=== PATIENT | male | born 1955 | race Caucasian/White ===

== ENCOUNTER 2018-10-04 11:40 | Inpatient (IN) ==
--- NOTE | 2018-10-04 12:54 | ED ---
HPI General Chief Complaint: Respiratory Symptoms Stated Complaint: SoB Time Seen by Provider: 10/04/18 12:20 History of Present Illness HPI Narrative: This is a 63-year-old male with a severe COPD, O2 dependent, who presents from the [place] with complaints of shortness of breath fever and cough. Patient has been treated with multiple rounds of antibiotics for bronchitis/ upper respiratory infection. Despite this, he has had recurrent fever 2 days ago. He was seen and evaluated at the [place] clinic and they max blood noted his white blood cell count to be 16,000. They stated they were concerned that he had pneumonia and sent him here for further evaluation and probable admission. The temperature was as high as 101.5. They have been taking Tylenol for the fever. Caregiver at the bedside states that despite this, he has had fevers. He was recently just started on doxycycline. He had been on Zithromax, Augmentin and Cipro. The patient normally uses O2 and receives between 8 and 10 L via nasal cannula. This is normal for him. Related Data Home Medications Medication Instructions Recorded Confirmed alfuzosin 10 mg PO DAILY 10/04/18 10/04/18 benztropine [Cogentin] 0.5 mg IM BID 10/04/18 10/04/18 budesonide-formoterol [Symbicort] 2 puff INHALATION BID 10/04/18 10/04/18 diltiazem HCl 240 mg PO DAILY 10/04/18 10/04/18 finasteride 5 mg PO DAILY 10/04/18 10/04/18 haloperidol 2 mg PO HS 10/04/18 10/04/18 ipratropium-albuterol [Combivent 1 puff INHALATION Q6H 10/04/18 10/04/18 Respimat] lorazepam [Ativan] 1 mg PO BID 10/04/18 10/04/18 metoprolol succinate 50 mg PO BID 10/04/18 10/04/18 tiotropium bromide [Spiriva 2 puff INHALATION DAILY 10/04/18 10/04/18 Respimat] Allergies Allergy/AdvReac Type Severity Reaction Status Date / Time ciprofloxacin [From Cipro] AdvReac Nausea Verified 10/04/18 12:27 Review of Systems ROS: all other systems reviewed are negative Constitutional Denies chills and Reports fever(s) Eyes Reports system reviewed and no additional complaints, except as docu ENT Reports system reviewed and no additional complaints, except as [facility] Cardiovascular Denies chest pain and Reports dyspnea Respiratory Reports chest congestion, Reports cough and Reports dyspnea Gastrointestinal Reports system reviewed and no additional complaints, except as [facility] Genitourinary Reports system reviewed and no additional complaints, except as [facility] Musculoskeletal Reports system reviewed and no additional complaints, except as [facility] Neurologic Reports system reviewed and no additional complaints, [facility] Medical History Medical History COPD (chronic obstructive pulmonary disease) (Acute) Hypertension (Acute) Inguinal hernia bilateral, non-recurrent (Acute) Prostate hypertrophy (Acute) Surgical History Surgical History History of transurethral resection of prostate (Acute) Social History Social History Substance History: No History of Abuse Second Hand Smoke Exposure: No Smoking Status: Former smoker How Often Do You Have a Drink Containing Alcohol: Monthly or less Recent Travel in [facility] within the Last 8 Weeks: No Recent Out of Country Travel within the Last 8 Weeks: No Immunization History Tetanus Immunization: >5 Years Exam Narrative Exam Narrative: GENERAL: Well-developed well-nourished male in obvious respiratory distress. Patient had a respiratory rate in the high 20s. SKIN: Focused skin assessment warm/dry. HEAD: Atraumatic. Normocephalic. EYES: Pupils equal and round. No scleral icterus. No injection or drainage. ENT: No nasal bleeding or discharge. Mucous membranes pink and moist. NECK: Trachea midline. Supple. CARDIOVASCULAR: Regular rate and rhythm. No murmur appreciated. RESPIRATORY: Fine rales appreciated at the left lung base. Decreased air movement bilaterally. GASTROINTESTINAL: Abdomen soft, non-tender, nondistended. Hepatic and splenic margins not palpable. MUSCULOSKELETAL: No obvious deformities. No clubbing. No cyanosis. No edema. NEUROLOGICAL: Awake and alert. No obvious cranial nerve deficits. Motor grossly within normal limits. Course Initial Documented Vital Signs Temperature 98.8 F 10/04/18 11:46 Pulse Rate 110 H 10/04/18 11:46 Respiratory Rate 28 H 10/04/18 11:46 Blood Pressure 144/86 H 10/04/18 11:46 Pulse Oximetry 93 L 10/04/18 11:46 Last Documented Vital Signs Temperature 98.8 F 10/04/18 11:46 Pulse Rate 100 H 10/04/18 14:57 Respiratory Rate 28 H 10/04/18 14:57 Blood Pressure 142/95 H 10/04/18 14:57 Pulse Oximetry 99 10/04/18 14:57 Medical Decision Making MDM Narrative Medical decision making narrative: This is a 63-year-old male with history of severe COPD, oxygen dependent, who presents today with complaints of fever, shortness of breath, cough and reported elevated blood count. Patient was seen at the [place] where he gets his care and was noted to have an elevated white blood cell count. They sent him here for further evaluation and admission. The patient has been on multiple doses of different antibiotics and despite that, he still spiking a fever. Chest x-ray shows a large left pleural effusion and a left middle lobe infiltrate. He is been started on Zosyn and Zithromax. He will be admitted to the hospital under the [facility] teaching service. Case was discussed with Dr. Haley, resident working with the teaching service under Dr. Gudino. Medical Screen Exam Complete: Yes Emergency Medical Condition: Yes Differential Diagnosis Differential Diagnosis: Pneumonia versus bronchitis versus COPD exacerbation Lab Data Result diagrams: 10/04/18 12:50 10/04/18 12:50 Lab Results 10/04/18 10/04/18 Range/Units 12:50 12:50 WBC 18.7 H (4.0-11.0) th/mm3 RBC 3.97 L (4.50-5.90) mil/mm3 Hgb 11.7 L (13.0-17.0) gm/dL Hct 35.4 L (39.0-51.0) % MCV 89.1 (80.0-100.0) fL MCH 29.6 (27.0-34.0) pg MCHC 33.2 (32.0-36.0) % RDW 14.2 (11.6-17.2) % Plt Count 545 H (150-450) th/mm3 MPV 7.0 (7.0-11.0) fL Prelim Diff (Auto) Slide review pending Neut % (Auto) 88.9 H (16.0-70.0) % Lymph % (Auto) 3.0 L (9.0-44.0) % [place] % (Auto) 7.8 (0.0-8.0) % Eos % (Auto) 0.1 (0.0-4.0) % Baso % (Auto) 0.2 (0.0-2.0) % Neut # (Auto) 16.6 H (1.8-7.7) th/mm3 Lymph # (Auto) 0.6 L (1.0-4.8) th/mm3 [place] # (Auto) 1.5 H (0.0-0.9) th/mm3 Eos # (Auto) 0.0 (0.0-0.4) th/mm3 Baso # (Auto) 0.0 (0.0-0.2) th/mm3 WBC Differential Manual diff final Seg Neuts % (Manual) 81 H (16-70) % Band Neuts % (Manual) 11 H (0-6) % Lymphocytes % (Manual) 1 L (9-44) % Monocytes % (Manual) 7 (0-8) % Abs Neuts (Manual) 17.2 H (1.8-7.7) th/mm3 Differential Comment . Platelet Estimate High H (Normal) Platelet Morphology Normal (Normal) RBC Morphology Normal (Normal) Sodium 127 L (136-145) meq/L Potassium 5.0 (3.5-5.1) meq/L Chloride 87 L (98-107) meq/L Carbon Dioxide 35.3 H (21.0-32.0) meq/L Anion Gap 5 (5-15) meq/L BUN 8 (7-18) mg/dL Creatinine 0.58 L (0.60-1.30) mg/dL Estimated GFR Greater than 89 (>89) mL/min Random Glucose 165 H (74-106) mg/dL Calcium 8.6 (8.5-10.1) mg/dL Total Bilirubin 0.2 (0.2-1.0) mg/dL AST 31 (15-37) U/L ALT 33 (12-78) U/L Alkaline Phosphatase 95 (45-117) U/L Total Creatine Kinase 49 (39-308) U/L Troponin I Less than 0.02 L (0.02-0.05) ng/mL Total Protein 8.2 (6.4-8.2) g/dL Albumin 2.2 L (3.4-5.0) g/dL Imaging Data Radiologist's impression: Chest X-Ray 10/04/18 12:21 CONCLUSION: Abnormal appearance left hemithorax with large left pleural effusion extending to the apex and segmental infiltrates in left mid lung. Discharge Plan Discharge Disposition Patient Disposition: ED Admit(ED Internal Use Only) Discharge Order Discharge Orders: ED Use Only Admit Order (Routine); Ordered 10/04/18 Ordered By: Jose Weber Discharge Details Diagnosis: Pneumonia, Pleural effusion on left, COPD (chronic obstructive pulmonary disease) Physicians Team ED Provider: Jose Weber Primary Care Provider: UNKNOWN, Attending Provider: Quynh Gudino Discharge Interventions Interventions: Vital Signs Last Done: 10/04/18 14:57 Status ED Status: Ready for Discharge
[2018-10-04 13:14] LABS: Baso % (Auto) 0.2 % (0.0-2.0); Eos % (Auto) 0.1 % (0.0-4.0); Hematocrit 35.4 % (39.0-51.0); Hemoglobin 11.7 gm/dL (13.0-17.0); Lymph # (Auto) 0.6 th/mm3 (1.0-4.8); Mean Corpuscular HGB Conc 33.2 % (32.0-36.0); Mean Corpuscular Hemoglobin 29.6 pg (27.0-34.0); Mean Corpuscular Volume 89.1 fL (80.0-100.0); Mono # (Auto) 1.5 th/mm3 (0.0-0.9); Mono % (Auto) 7.8 % (0.0-8.0); Neut # (Auto) 16.6 th/mm3 (1.8-7.7); Neut % (Auto) 88.9 % (16.0-70.0); Platelet Count 545 th/mm3 (150-450); Red Blood Count 3.97 mil/mm3 (4.50-5.90); Red Cell Distribution Width 14.2 % (11.6-17.2); White Blood Count 18.7 th/mm3 (4.0-11.0)
--- NOTE | 2018-10-04 13:16 | XR ---
EXAM DATE: 10/04/2018 1:07 PM EST AGE/SEX: 63 years / Male INDICATIONS: Shortness of breath. CLINICAL DATA: This is the patient's initial encounter. Patient reports that signs and symptoms have been present for 2 days and indicates a pain score of 0/10. MEDICAL/SURGICAL HISTORY: Chronic obstructive pulmonary disease. Hypertension. Inguinal hernia repair. COMPARISON: No prior exams available for comparison. FINDINGS: There is a large density in the lateral left thorax extending from base to apex suggestive of a large pleural effusion. The pleural effusion appears to extend to the apex with separation of visceral par ietal pleura measuring up to 3 cm. There is also partially consolidative infiltrate left mid and lowe r lung. There is complete loss of delineation of the lateral left hemidiaphragm. The left upper lung is hyper aerated. The right lung is clear with hyperaeration of the apex. The heart is normal in size . CONCLUSION: Abnormal appearance left hemithorax with large left pleural effusion extending to the apex and segmen enrique infiltrates in left mid lung. Electronically signed by: Troy Anand MD Board Certified Radiologist 10/04/2018 1:15 PM EST
[2018-10-04 13:48] LABS: Lymphocytes 1 % (9-44); Monocytes 7 % (0-8); Platelet Morphology Normal (Normal); RBC Morphology Normal (Normal)
[2018-10-04 13:49] LABS: Alanine Aminotransferase 33 U/L (12-78); Albumin 2.2 g/dL (3.4-5.0); Alkaline Phosphatase 95 U/L (45-117); Anion Gap 5 meq/L (5-15); Aspartate Aminotransferase 31 U/L (15-37); Blood Urea Nitrogen 8 mg/dL (7-18); Calcium 8.6 mg/dL (8.5-10.1); Carbon Dioxide 35.3 meq/L (21.0-32.0); Chloride 87 meq/L (98-107); Glomerular Filtration Rate Greater Than 89 mL/min (>89); Glucose,Random 165 mg/dL (74-106); Sodium 127 meq/L (136-145); Total Protein 8.2 g/dL (6.4-8.2)
[2018-10-04 13:54] LABS: Creatine Kinase 49 U/L (39-308)
--- NOTE | 2018-10-04 14:25 | P.HPFP ---
History of Present Illness Primary Care Physician: UNKNOWN <Quynh Gudino - 10/04/18 22:05> UNKNOWN <Sudha Christiano Wei Viridiana - 10/04/18 14:24> History of Present Illness: This patient is a 63 yoM with a history of COPD and schizophrenia who is accompanied by his care givers, Gladys Morsede and Lázaro Andrew who are friends of the family for a one month history of increased oxygen demand and cough. Care givers report that 1 month ago he sat next to someone in yazidism who had PNA. Patient previously on 8L at home. Sing then patient has required 10L to sat at 93-98%. Since then he has increase in coughing, sputum production and color of sputum has been between green and orange. Today patient went to the [facility] for blood work and was found to have elevated white count and was told to come to the ED. Care givers report a fever of 101.7 that began on Sunday. They also noticed an associated red patches over left eye. They deny any nausea, vomiting, or shortness of breath.They report no sick contacts. No recent travel out of state or country. Pneumococcal vaccine status unknown. PMHx: COPD, Schizophrenia, HTN Meds: Reviewed with patient and care givers who report EMR list is correct as far as they know Surgeries: Bilateral inguinal hernia repair, TURP Allergies: Cipro causes nausea and vomiting FMHx: Mother passed of cancer at unknown age but was elderly Social: Lives with his sister who is a irrigation tax assessor collector and his primary patient care nursing assistant. Patient was in the [employer] for years. Smoked several packs for several years ( details not known) quit 7 years ago. No alcohol or drug abuse. Code: Full PCP: Dr. Aguayo, [facility] pulm: Unknown name Psych: [facility] Dr. Cristobal <Christiano Roman - 10/04/18 17:16> - Diagnosis (1) COPD (chronic obstructive pulmonary disease) (2) Schizophrenia (3) Pneumonia (4) Pleural effusion on left (5) HTN (hypertension) (6) BPH (benign prostatic hyperplasia) (7) Nutrition, metabolism, and development symptoms <Quynh Gudino - 10/04/18 22:05> (1) COPD (chronic obstructive pulmonary disease) (2) Schizophrenia (3) Pneumonia (4) Pleural effusion on left (5) HTN (hypertension) (6) BPH (benign prostatic hyperplasia) (7) Nutrition, metabolism, and development symptoms <Christiano Roman 10/04/18 16:24> Inpatient Certification: I certify that the inpatient services were ordered in accordance with Medicare regulations governing the order. This includes certification that hospital inpatient services are reasonable and necessary and in the case of services not specified as inpatient-only under 42 CFR 419.22(n), that they are appropriately provided as inpatient services in accordance to with the 2-midnight benchmark under 43 CFR 412.3(e) <Quynh Gudino 10/04/18 22:05> Review of Systems Constitutional: Denies chills, Denies fever(s), Denies headache(s), Denies dizziness, Eyes: Denies change in vision, Denies double vision, Denies blurry vision Cardiovascular: Denies chest pain, Denies fast heart rate, Denies rapid, pounding, or irregular heartbeat Respiratory: Endorses a 1 month history of shortness of breath with increased cough, sputum production, and purulence Gastrointestinal: Denies abdominal pain, Denies constipation, Denies loose stools, Denies nausea, Denies vomiting Genitourinary: Denies difficulty urinating, Denies painful urination, Denies urinary frequency, Denies blood in urine <Christiano Roman 10/04/18 17:16> PMF - History History Provided By: Patient <Christiano Roman 10/04/18 14:24> - Medical History Medical History: Medical History (Last Updated 10/04/18 @ 12:32 by Margarita Larsen) COPD (chronic obstructive pulmonary disease) Hypertension Inguinal hernia bilateral, non-recurrent Prostate hypertrophy <Quynh Gudino 10/04/18 22:05> Medical History (Last Updated 10/04/18 @ 12:32 by Margarita Larsen) COPD (chronic obstructive pulmonary disease) Hypertension Inguinal hernia bilateral, non-recurrent Prostate hypertrophy <Christiano Roman 10/04/18 14:24> - Surgical History Surgical History: Surgical History (Last Updated 10/04/18 @ 12:32 by Margarita Larsen) History of transurethral resection of prostate <TereseQuynh 10/04/18 22:05> Surgical History (Last Updated 10/04/18 @ 12:32 by Margarita Larsen) History of transurethral resection of prostate <Christiano Roman - 10/04/18 14:24> - Tobacco History Second Hand Smoke Exposure: No <Christiano Roman 10/04/18 14:24> Smoking Status: Former smoker <Christiano Roman 10/04/18 14:24> - Alcohol History How Often Do You Have a Drink Containing Alcohol: Monthly or less <Christiano Roman 10/04/18 14:24> - Substance Use History Substance History: No History of Abuse <Christiano Roman 10/04/18 14:24> - Travel History Recent Travel in the [facility] Within the Last 8 Weeks: No <Christiano Roman 10/04 14:24> Recent Travel Out of the Country Within the Last 8 Weeks: No <Christiano Roman 10/04/18 14:24> - Immunization History Tetanus Immunization: >5 Years <Christiano Roman 10/04/18 14:24> Medications and Allergies Allergies Allergy/AdvReac Type Severity Reaction Status Date / Time ciprofloxacin [From Cipro] AdvReac Nausea Verified 10/04/18 12:27 <Quynh Gudino - 10/04/18 22:05> Home Medications Medication Instructions Recorded Confirmed Type alfuzosin 10 mg PO DAILY 10/04/18 10/04/18 History benztropine [Cogentin] 0.5 mg IM BID 10/04/18 10/04/18 History budesonide-formoterol [Symbicort] 2 puff INHALATION BID 10/04/18 10/04/18 History diltiazem HCl 240 mg PO DAILY 10/04/18 10/04/18 History finasteride 5 mg PO DAILY 10/04/18 10/04/18 History haloperidol 2 mg PO HS 10/04/18 10/04/18 History ipratropium-albuterol [Combivent 1 puff INHALATION Q6H 10/04/18 10/04/18 History Respimat] lorazepam [Ativan] 1 mg PO BID 10/04/18 10/04/18 History metoprolol succinate 50 mg PO BID 10/04/18 10/04/18 History tiotropium bromide [Spiriva 2 puff INHALATION DAILY 10/04/18 10/04/18 History Respimat] <Quynh Gudino - 10/04/18 22:05> Active Medications: Active Medications Acetaminophen (Tylenol) 650 mg PO Q4H PRN PRN Reason: Temp > 100.4 Al Hydroxide/Mg Hydroxide (Milk Of Magnesia Liq) 30 ml PO Q12H PRN PRN Reason: Mild Constipation Albuterol (Duoneb Neb ([facility])) 1 ampul NEB Q4HR NEB [facility] Last Admin: 10/04/18 20:06 Dose: 1 ampul Albuterol (Albuterol Neb ([facility])) 2.5 mg NEB Q2HR NEB [facility] Last Admin: 10/04/18 20:06 Dose: 2.5 mg Benztropine Mesylate (Cogentin Inj) 0.5 mg IM BID [facility] Bisacodyl (Dulcolax Supp) 10 mg RECTAL DAILY PRN PRN Reason: SEVERE CONSITIPATION Diltiazem HCl (Cardizem Cd 24hr) 240 mg PO DAILY [facility] Finasteride (Proscar) 5 mg PO DAILY [facility] Guaifenesin (Mucinex Er) 600 mg PO BID PRN PRN Reason: NASAL CONGESTION Haloperidol (Haldol) 2 mg PO HS [facility] Heparin Sodium (Porcine) (Heparin Inj) 5,000 units SQ Q8H [facility] Last Admin: 10/04/18 22:00 Dose: 5,000 units Piperacillin/Tazobactam/Dextrose (Zosyn 4.5 Gm Premix) 4.5 gm in 100 mls @ 200 mls/hr IV.SIG Q6H [facility] Sodium Chloride (Ns Inj) 1,000 mls @ 125 mls/hr IV.CONT .Q8H [facility] Last Admin: 10/04/18 17:45 Dose: 125 mls/hr Lactulose (Lactulose Liq) 30 ml PO DAILY PRN PRN Reason: SEVERE CONSITIPATION Lorazepam (Ativan) 1 mg PO BID [facility] Last Admin: 10/04/18 21:50 Dose: 1 mg Methylprednisolone Sodium Succinate (Solumedrol Inj) 60 mg IV.PUSH Q6H [facility] Last Admin: 10/04/18 21:51 Dose: 60 mg Metoprolol Succinate (Toprol Xl) 50 mg PO BID [facility] Last Admin: 10/04/18 21:50 Dose: 50 mg Ondansetron HCl (Zofran Inj) 4 mg IV.PUSH Q6H PRN PRN Reason: NAUSEA OR VOMITING Pantoprazole Sodium (Protonix) 40 mg PO DAILY [facility] Sennosides (Senokot) 17.2 mg PO Q12H PRN PRN Reason: Moderate Constipation Sodium Chloride (Ns Flush) 2 ml IV.FLUSH BID [facility] Last Admin: 10/04/18 21:51 Dose: 2 ml Sodium Chloride (Ns Flush) 2 ml IV.FLUSH PRN PRN PRN Reason: FLUSH AFTER USING IV ACCESS Tamsulosin HCl (Flomax) 0.4 mg PO DAILY [facility] <Quynh Gudino - 10/04/18 22:05> Exam Vital signs: Vital Signs 10/04/18 11:46 10/04/18 12:26 10/04/18 12:43 Temperature 98.8 F Pulse Rate 110 H 104 H 104 H Respiratory Rate 28 H 30 H Blood Pressure 144/86 H 171/85 H Pulse Oximetry 93 L 96 98 10/04/18 14:57 10/04/18 16:12 10/04/18 16:40 Temperature 98.1 F Pulse Rate 100 H 116 H 104 H Respiratory Rate 28 H 28 H 22 Blood Pressure 142/95 H 167/95 H Pulse Oximetry 99 98 10/04/18 17:39 10/04/18 18:45 10/04/18 20:07 Temperature Pulse Rate 112 H 102 H 112 H Respiratory Rate 26 H 26 H 22 Blood Pressure 119/58 L 121/60 Pulse Oximetry 98 99 98 Intake & Output 10/04/18 10/04/18 10/05/18 06:59 18:59 06:59 Intake Total 1350 / 1350 Output Total 640 / 640 Balance 710 / 710 Weight 92.533 kg Intake: IV 1350 / 1350 Azithromycin Inj 500 MG In NS 250 / 250 Inj 250 ML @ 250 mls/hr IV.SIG STAT STA Rx#:[id number] Zosyn 4.5 GM Premix 4.5 gm In 100 / 100 100 ml @ 200 mls/hr IV.SIG STAT STA Rx#:[id number] NS Inj 1,000 ML @ Wide Open IV. 1000 / 1000 SIG BOLUS ONE Rx#:[id number] Output: Urine 340 / 340 Stool 300 / 300 Other: # Voids 1 Date of Last Bowel Movement 10/04/18 # Bowel Movements 1 <TereseQuynh - 10/04/18 22:05> Vital Signs 10/04/18 11:46 10/04/18 12:26 10/04/18 12:43 Temperature 98.8 F Pulse Rate 110 H 104 H 104 H Respiratory Rate 28 H 30 H Blood Pressure 144/86 H 171/85 H Pulse Oximetry 93 L 96 98 Intake & Output 10/03/18 10/04/18 10/04/18 18:59 06:59 18:59 Weight 92.533 kg <Christiano Roman - 10/04/18 14:24> Narrative: GENERAL: Elderly appearing gentleman laying on his side urinating into portable urinal. On facemask 15 L nasal cannula. In no acute distress. EYES: No scleral icterus. No injection or drainage. PERRLA. EOMI. HENT: Normocephalic. Atraumatic. NECK: Supple, trachea midline. No JVD, shotty bilateral submandibular lymphadenopathy CARDIOVASCULAR: Regular rate and rhythm without obvious murmurs, gallops, or rubs. RESPIRATORY: Breath sounds decreased in mid and lower left lobe. Egophony noted in left lower lobe. Dullness to percussion noted in left lower lobe. Right lung davidson grossly clear to auscultation. GASTROINTESTINAL: Abdomen soft, non-tender, nondistended. BS WNL. MUSCULOSKELETAL: No cyanosis or edema. Strength grossly WNL. BACK: Nontender without obvious deformity. No CVA tenderness. NEURO/PSYCH: Patient confused. Unable to answer questions appropriately. Appears to have fluctuating concentration and appropriateness of answers. [place] nerves II through XII grossly intact with no facial drooping. Moving all extremities. <Christiano Roman - 10/04/18 17:16> Results - Labs Result diagrams: 10/04/18 12:50 10/04/18 12:50 <Quynh Gudino - 10/04/18 22:05> Abnormal lab results 10/04/18 10/04/18 10/04/18 Range/Units 12:50 12:50 12:50 WBC 18.7 H (4.0-11.0) th/mm3 RBC 3.97 L (4.50-5.90) mil/mm3 Hgb 11.7 L (13.0-17.0) gm/dL Hct 35.4 L (39.0-51.0) % Plt Count 545 H (150-450) th/mm3 Neut % (Auto) 88.9 H (16.0-70.0) % Lymph % (Auto) 3.0 L (9.0-44.0) % Neut # (Auto) 16.6 H (1.8-7.7) th/mm3 Lymph # (Auto) 0.6 L (1.0-4.8) th/mm3 [place] # (Auto) 1.5 H (0.0-0.9) th/mm3 Seg Neuts % (Manual) 81 H (16-70) % Band Neuts % (Manual) 11 H (0-6) % Lymphocytes % (Manual) 1 L (9-44) % Abs Neuts (Manual) 17.2 H (1.8-7.7) th/mm3 Platelet Estimate High H (Normal) ABG pCO2 (38-42) mmHg ABG HCO3 (22-26) mmol/L ABG Base Excess (-2-2) mmol/L Hemoglobin (12.0-16.0) G/DL Sodium 127 L (136-145) meq/L Chloride 87 L (98-107) meq/L Carbon Dioxide 35.3 H (21.0-32.0) meq/L Creatinine 0.58 L (0.60-1.30) mg/dL Random Glucose 165 H (74-106) mg/dL Troponin I Less than 0.02 L (0.02-0.05) ng/mL Albumin 2.2 L (3.4-5.0) g/dL Procalcitonin (0.00-0.07) ng/mL Urine Clarity Hazy H (Clear) Urine Protein 30 H (Neg-Trace) mg/dL Urine Ketones Trace H (Negative) mg/dL Urine Mucus Few H (Occasional) /lpf 10/04/18 10/04/18 Range/Units 18:38 20:35 WBC (4.0-11.0) th/mm3 RBC (4.50-5.90) mil/mm3 Hgb (13.0-17.0) gm/dL Hct (39.0-51.0) % Plt Count (150-450) th/mm3 Neut % (Auto) (16.0-70.0) % Lymph % (Auto) (9.0-44.0) % Neut # (Auto) (1.8-7.7) th/mm3 Lymph # (Auto) (1.0-4.8) th/mm3 [place] # (Auto) (0.0-0.9) th/mm3 Seg Neuts % (Manual) (16-70) % Band Neuts % (Manual) (0-6) % Lymphocytes % (Manual) (9-44) % Abs Neuts (Manual) (1.8-7.7) th/mm3 Platelet Estimate (Normal) ABG pCO2 54 H* (38-42) mmHg ABG HCO3 33 H (22-26) mmol/L ABG Base Excess 7.6 H (-2-2) mmol/L Hemoglobin 10.3 L (12.0-16.0) G/DL Sodium (136-145) meq/L Chloride (98-107) meq/L Carbon Dioxide (21.0-32.0) meq/L Creatinine (0.60-1.30) mg/dL Random Glucose (74-106) mg/dL Troponin I (0.02-0.05) ng/mL Albumin (3.4-5.0) g/dL Procalcitonin 0.22 H (0.00-0.07) ng/mL Urine Clarity (Clear) Urine Protein (Neg-Trace) mg/dL Urine Ketones (Negative) mg/dL Urine Mucus (Occasional) /lpf Short CBC 10/04/18 Range/Units 12:50 WBC 18.7 H (4.0-11.0) th/mm3 Hgb 11.7 L (13.0-17.0) gm/dL Hct 35.4 L (39.0-51.0) % Plt Count 545 H (150-450) th/mm3 BMP 10/04/18 12:50 Sodium 127 L Potassium 5.0 Chloride 87 L Carbon Dioxide 35.3 H BUN 8 Creatinine 0.58 L Calcium 8.6 Cardiac Enzymes 10/04/18 Range/Units 12:50 Total Creatine Kinase 49 (39-308) U/L Troponin I Less than 0.02 L (0.02-0.05) ng/mL Liver Function 10/04/18 Range/Units 12:50 Total Bilirubin 0.2 (0.2-1.0) mg/dL AST 31 (15-37) U/L ALT 33 (12-78) U/L Alkaline Phosphatase 95 (45-117) U/L Albumin 2.2 L (3.4-5.0) g/dL Urine 10/04/18 Range/Units 12:50 Urine Color Yellow (Yellw/Straw) Urine Clarity Hazy H (Clear) Urine pH 6.0 (5.0-8.5) Ur Specific [place] 1.018 (1.002-1.035) Urine Protein 30 H (Neg-Trace) mg/dL Urine Glucose (UA) Negative (Negative) mg/dL <TereseQuynh - 10/04/18 22:05> Abnormal lab results 10/04/18 10/04/18 Range/Units 12:50 12:50 WBC 18.7 H (4.0-11.0) th/mm3 RBC 3.97 L (4.50-5.90) mil/mm3 Hgb 11.7 L (13.0-17.0) gm/dL Hct 35.4 L (39.0-51.0) % Plt Count 545 H (150-450) th/mm3 Neut % (Auto) 88.9 H (16.0-70.0) % Lymph % (Auto) 3.0 L (9.0-44.0) % Neut # (Auto) 16.6 H (1.8-7.7) th/mm3 Lymph # (Auto) 0.6 L (1.0-4.8) th/mm3 [place] # (Auto) 1.5 H (0.0-0.9) th/mm3 Seg Neuts % (Manual) 81 H (16-70) % Band Neuts % (Manual) 11 H (0-6) % Lymphocytes % (Manual) 1 L (9-44) % Abs Neuts (Manual) 17.2 H (1.8-7.7) th/mm3 Platelet Estimate High H (Normal) Sodium 127 L (136-145) meq/L Chloride 87 L (98-107) meq/L Carbon Dioxide 35.3 H (21.0-32.0) meq/L Creatinine 0.58 L (0.60-1.30) mg/dL Random Glucose 165 H (74-106) mg/dL Troponin I Less than 0.02 L (0.02-0.05) ng/mL Albumin 2.2 L (3.4-5.0) g/dL Short CBC 10/04/18 Range/Units 12:50 WBC 18.7 H (4.0-11.0) th/mm3 Hgb 11.7 L (13.0-17.0) gm/dL Hct 35.4 L (39.0-51.0) % Plt Count 545 H (150-450) th/mm3 BMP 10/04/18 12:50 Sodium 127 L Potassium 5.0 Chloride 87 L Carbon Dioxide 35.3 H BUN 8 Creatinine 0.58 L Calcium 8.6 Cardiac Enzymes 10/04/18 Range/Units 12:50 Total Creatine Kinase 49 (39-308) U/L Troponin I Less than 0.02 L (0.02-0.05) ng/mL Liver Function 10/04/18 Range/Units 12:50 Total Bilirubin 0.2 (0.2-1.0) mg/dL AST 31 (15-37) U/L ALT 33 (12-78) U/L Alkaline Phosphatase 95 (45-117) U/L Albumin 2.2 L (3.4-5.0) g/dL <Christiano Roman - 10/04/18 14:24> - Imaging Impressions Chest CT 10/04/18 00:00 CONCLUSION: 1. Extensive COPD with huge blebs and very low lung parenchymal remaining. 2. Loculated left pleural effusion with adjacent parenchymal process may be chronically consolidated lung, however focal mass particularly left lower lobe is difficult to exclude. 3. Nonspecific right lower lung nodule. 4. Right adrenal mass most likely an adenoma, however it is nonspecific. Chest X-Ray 10/04/18 12:21 CONCLUSION: Abnormal appearance left hemithorax with large left pleural effusion extending to the apex and segmental infiltrates in left mid lung. <Quynh Gudino - 10/04/18 22:05> Impressions Chest X-Ray 10/04/18 12:21 CONCLUSION: Abnormal appearance left hemithorax with large left pleural effusion extending to the apex and segmental infiltrates in left mid lung. <Christiano Roman 10/04/18 14:24> Caprini VTE Risk Assessment Caprini VTE Risk Assessment: Moderate/High Risk (score >= 2) <Christiano Roman 10/04/18 17:16> Caprini Risk Assessment Model: Point Value = 1 Point Value = 2 Point Value = 3 Point Value = 5 Age 41-60 Minor surgery BMI > 25 kg/m2 Swollen legs Varicose veins or History of unexplained or recurrent spontaneous Oral contraceptives or hormone replacement Sepsis (< 1 month) Serious lung disease, including pneumonia (< 1 month) Abnormal pulmonary function Acute myocardial infarction Congestive heart failure (< 1 month) History of inflammatory bowel disease Medical patient at bed rest Age 61-74 Arthroscopic surgery Major open surgery (> 45 min) Laparoscopic surgery (> 45 min) Malignancy Confined to bed (> 72 hours) Immobilizing plaster cast Central venous access Age >= 75 History of VTE Family history of VTE Factor V Leiden Prothrombin [id number] Lupus anticoagulant Anticardiolipin antibodies Elevated serum homocysteine Heparin-induced thrombocytopenia Other congenital or acquired thrombophilia Stroke (< 1 month) Elective arthroplasty Hip, pelvis, or leg fracture Acute spinal cord injury (< 1 month) <Quynh Gudino 10/04/18 22:05> Point Value = 1 Point Value = 2 Point Value = 3 Point Value = 5 Age 41-60 Minor surgery BMI > 25 kg/m2 Swollen legs Varicose veins or History of unexplained or recurrent spontaneous Oral contraceptives or hormone replacement Sepsis (< 1 month) Serious lung disease, including pneumonia (< 1 month) Abnormal pulmonary function Acute myocardial infarction Congestive heart failure (< 1 month) History of inflammatory bowel disease Medical patient at bed rest Age 61-74 Arthroscopic surgery Major open surgery (> 45 min) Laparoscopic surgery (> 45 min) Malignancy Confined to bed (> 72 hours) Immobilizing plaster cast Central venous access Age >= 75 History of VTE Family history of VTE Factor V Leiden Prothrombin [id number] Lupus anticoagulant Anticardiolipin antibodies Elevated serum homocysteine Heparin-induced thrombocytopenia Other congenital or acquired thrombophilia Stroke (< 1 month) Elective arthroplasty Hip, pelvis, or leg fracture Acute spinal cord injury (< 1 month) <Christiano Roman 10/04/18 14:24> Prophylaxis Regimen: Total Risk Factor Score Risk Level Prophylaxis Regimen 0-1 Low Early ambulation 2 Moderate Order ONE of the following: *Sequential Compression Device (SCD) *Heparin 5000 units SQ BID 3-4 Higher Order ONE of the following medications: *Heparin 5000 units SQ TID *Enoxaparin/Lovenox 40 mg SQ daily (WT < 150 kg, CrCl > 30 mL/min) *Enoxaparin/Lovenox 30 mg SQ daily (WT < 150 kg, CrCl > 10-29 mL/min) *Enoxaparin/Lovenox 30 mg SQ BID (WT < 150 kg, CrCl > 30 mL/min) AND/OR *Sequential Compression Device (SCD) 5 or more Highest Order ONE of the following medications: *Heparin 5000 units SQ TID (Preferred with Epidurals) *Enoxaparin/Lovenox 40 mg SQ daily (WT < 150 kg, CrCl > 30 mL/min) *Enoxaparin/Lovenox 30 mg SQ daily (WT < 150 kg, CrCl > 10-29 mL/min) *Enoxaparin/Lovenox 30 mg SQ BID (WT < 150 kg, CrCl > 30 mL/min) AND *Sequential Compression Device (SCD) <Quynh Gudino - 10/04/18 22:05> Total Risk Factor Score Risk Level Prophylaxis Regimen 0-1 Low Early ambulation 2 Moderate Order ONE of the following: *Sequential Compression Device (SCD) *Heparin 5000 units SQ BID 3-4 Higher Order ONE of the following medications: *Heparin 5000 units SQ TID *Enoxaparin/Lovenox 40 mg SQ daily (WT < 150 kg, CrCl > 30 mL/min) *Enoxaparin/Lovenox 30 mg SQ daily (WT < 150 kg, CrCl > 10-29 mL/min) *Enoxaparin/Lovenox 30 mg SQ BID (WT < 150 kg, CrCl > 30 mL/min) AND/OR *Sequential Compression Device (SCD) 5 or more Highest Order ONE of the following medications: *Heparin 5000 units SQ TID (Preferred with Epidurals) *Enoxaparin/Lovenox 40 mg SQ daily (WT < 150 kg, CrCl > 30 mL/min) *Enoxaparin/Lovenox 30 mg SQ daily (WT < 150 kg, CrCl > 10-29 mL/min) *Enoxaparin/Lovenox 30 mg SQ BID (WT < 150 kg, CrCl > 30 mL/min) AND *Sequential Compression Device (SCD) <Christiano Roman O - 10/04/18 14:24> Assessment and Plan - Assessment (1) COPD (chronic obstructive pulmonary disease) Code(s): J44.9 - Chronic obstructive pulmonary disease, unspecified Status: Acute (2) Schizophrenia Code(s): F20.9 - Schizophrenia, unspecified Status: Acute (3) Pneumonia Code(s): J18.9 - Pneumonia, unspecified organism Status: Acute (4) Pleural effusion on left Code(s): J90 - Pleural effusion, not elsewhere classified Status: Acute (5) HTN (hypertension) Code(s): I10 - Essential (primary) hypertension Status: Acute (6) BPH (benign prostatic hyperplasia) Code(s): N40.0 - Benign prostatic hyperplasia without lower urinary tract symptoms Status: Acute (7) Nutrition, metabolism, and development symptoms Code(s): R63.8 - Other symptoms and signs concerning food and fluid intake Status: Acute <Quynh Gudino - 10/04/18 22:05> (1) COPD (chronic obstructive pulmonary disease) Code(s): J44.9 - Chronic obstructive pulmonary disease, unspecified Status: Acute Plan: This a 63 yoM with a history of COPD and schizophrenia who is accompanied by his care givers, Gladys Cassidy and Lázaro Andrew who are friends of the family for a one month history of increased oxygen demand and cough. Patient found to have left lower lobe consolidation as well as left lower lobe pleural effusion. Patient received 4.5 g of Zosyn as well as 500 mg of azithromycin in the ED. Patient meets sepsis criteria. Bolus patient liter of normal saline now. -DDx includes COPD exacerbation, pneumonia, pleural effusion secondary to malignancy. -Pt. has a pulmonary hx sig. for smoking and multiple URIs in the past. Number COPD exacerbations unknown. -Patient normally on 6 L home O2 now requiring 10 L. -WBC 18.7, neutrophil percent 88.9 supporting infectious etiology. -EKG unremarkable with exception of sinus tachycardia with possible left ventricular hypertrophy. -BNP WNLs. -CXR showed hyperinflation, mild flattening of diaphragm and elevated clavicles c/w COPD. Plan: -Gold COPD criteria cannot be calculated as patient's exacerbation history nor FEV1 percentage of predicted is currently known -Treat with Supplemental O2 via nonrebreather to maintain sats between 88 and 92 %. Encourage pt. to get OOB and ambulate. -Normal saline at 125 mL/h -Duonebs q4 hrs. jeff -Albuterol 2.5 mg nebulized Q2 hrs schedule -Solu-Medrol 60 mg IV every 6 -Protonix 40 mg PO daily for GI protection and decr. chances of aspiration pneumonia. -Zosyn 4.5 g IV every 6 -Mucinex 600 mg tab PO BID PRN congestion. -Incentive spirometer -Follow-up with CT of the chest, if shows infiltrate versus effusion antibiotics to be broadened to cover for community-acquired pneumonia (2) Schizophrenia Code(s): F20.9 - Schizophrenia, unspecified Status: Acute Plan: This patient has a history of schizophrenia. On admission patient appears to have fluctuating levels of cognition as his answers to questions fluctuate. Per caregivers patient is nonaggressive not combative. -Admit patient to room near nurses station -No QT prolongation noted on EKG -Continue home haloperidol -Continue home benztropine -Continue home Ativan 1 mg twice daily (3) Pneumonia Code(s): J18.9 - Pneumonia, unspecified organism Status: Acute Plan: This patient presents with an acute COPD exacerbation as well as consolidation versus effusion on left lower lobe. Please see plan above for COPD exacerbation. -Follow-up with CT of the chest, if shows infiltrate versus effusion antibiotics to be broadened to cover for community-acquired pneumonia (4) Pleural effusion on left Code(s): J90 - Pleural effusion, not elsewhere classified Status: Acute Plan: Patient presents with a left-sided pleural effusion found on chest x-ray. Patient was scheduled to receive CT scan at the [facility] due to a possible lung mass. This patient is a former smoker. -CT scan of the chest with contrast ordered -Interventional radiology consult for thoracentesis ordered (5) HTN (hypertension) Code(s): I10 - Essential (primary) hypertension Status: Acute Plan: Patient suffers from history of hypertension. On admission patient's blood pressure was 142/95. -Continue patient's diltiazem -Continue patient's metoprolol (6) BPH (benign prostatic hyperplasia) Code(s): N40.0 - Benign prostatic hyperplasia without lower urinary tract symptoms Status: Acute Plan: Patient suffers from benign prostatic hyperplasia. -Continue finasteride -Continue alfuzosin (7) Nutrition, metabolism, and development symptoms Code(s): R63.8 - Other symptoms and signs concerning food and fluid intake Status: Acute Plan: Fluids: Not indicated at this time Electrolytes: Replete as needed Nutrition: Regular diet DVT prophylaxis: Subcu heparin 5000 units 3 times daily <Christiano Roman - 10/04/18 16:24> - Attending Attestation Patient seen and examined, discussed with resident team. I agree with assessment and management as documented and discussed with me. I certify that two midnight stay is warranted and anticipated. José Miguel Fleming is a 63yo gentleman with end stage COPD admitted for increasing oxygen requirement; work up reveals pleural effusion and pneumonia. Additional diagnosis: hyponatremia: Monitor with BMP. Consider dehydration vs SIADH vs other. Adjust IV fluid according to repeat sodium values. <Quynh Gudino - 10/04/18 22:05>
[2018-10-04] MEDS ORDERED: Piperacil/Tazo 4.5 GM Premix 4.5 GM/100 ML BAG IV.SIG STA (14:34)
[2018-10-04] MEDS ORDERED: Azithromycin Inj 500 MG in Sodium Chlor 0.9% Inj 250 ML IV.SIG STA (14:34)
[2018-10-04] MEDS ORDERED: Acetaminophen 325 MG Tablet PO PRN (14:47)
[2018-10-04] MEDS ORDERED: Bisacodyl 10 MG Supp RECTAL PRN (14:47)
[2018-10-04] MEDS ORDERED: Sod Chloride 0.9% Inj 1,000 ML IV.SIG ONE (15:05)
--- NOTE | 2018-10-04 15:38 | ECG ---
Date Performed: 10/04/2018 Time Performed: 11:57:18 PTAGE: 63 years EKG: Baseline artifact present SINUS TACHYCARDIA MODERATE VOLTAGE CRITERIA FOR LVH, CONSIDER NOR MAL VARIANT ABNORMAL RHYTHM ECG NO PREVIOUS TRACING DOCTOR: Gary Mosquera Interpretating Date/Time 10/04/2018 15:36:38
[2018-10-04 15:41] LABS: Bilirubin,Urine Negative (Negative); Clarity,Urine Hazy (Clear); Color,Urine Yellow (Yellw/Straw); Glucose,Urine (UA) Negative (Negative); Hyaline Casts,Urine 3 /lpf (0-3); Leukocyte Esterase,Urine Negative (Negative); Mucus,Urine Few /lpf (Occasional); Nitrite,Urine Negative (Negative); Specific Gravity,Urine 1.018 (1.002-1.035)
[2018-10-04] MEDS: Heparin - SQ 10,000 UNITS/ML Vial SQ SCH ×2 (15:55→22:00)
[2018-10-04] MEDS: MethylPREDNISolone Sod Succinate Inj 40 MG/ML Vial IV.PUSH SCH ×2 (15:55→21:51)
[2018-10-04] MEDS ORDERED: guaiFENesin 600 MG ER Tablet PO PRN (16:57)
[2018-10-04] MEDS ORDERED: Iohexol 350 MG/ML 50 ML Vial (for Rad Diag) IVCONTRAST ONE (17:12)
--- NOTE | 2018-10-04 17:26 | CT ---
EXAM DATE: 10/04/2018 5:14 PM EST AGE/SEX: 63 years / Male INDICATIONS: Shortness of breath. Evaluate for metastatic disease. CLINICAL DATA: This is the patient's initial encounter. Patient reports that signs and symptoms have been present for 1 day and indicates a pain score of 0/10. MEDICAL/SURGICAL HISTORY: Chronic obstructive pulmonary disease. Hypertension. . Prostate resectio n. RADIATION DOSE: 10.4 CTDI (mGy) COMPARISON: [facility], CHEST 1V SINGLE AP, 10/04/2018. . TECHNIQUE: Multiple contiguous axial images were obtained through the chest during bolus infusion of 73 ml Omnipaque 350 (iohexol) nonionic water-soluble contrast as a single exam dose. Images were obtained in suspended respiration using multiple row detector helical technique. Using automated exp osure control and adjustment of the mA and/or kV according to patient size, radiation dose was kept a s low as reasonably achievable to obtain optimal diagnostic quality images. DICOM format image data is available electronically for review and comparison. FINDINGS: Approximate 2.7 cm mass is present in the right adrenal gland probably an adenoma low attenuating in nature. Tiny pericardial effusion is seen probably of no clinical significance. There is a loculat ed pleural effusion on the left side with maximum transverse diameter of 4.8 cm in maximum AP diamete r of 14.5 cm in size. Adjacent pleural thickening is seen with one area in left lower lung adjacent t o this area of loculated effusion which measures 3.5 x 1.6 cm in AP and transverse diameters probable area of scar, however underlying mass is difficult to exclude. Additional parenchymal process is see n in the left lung which extends to the loculated pleural effusion and upper lobe not particularly ma sslike maximum transverse diameter of 1.9 cm. The exact etiology is not certain, however may represen t chronically consolidated lung in a background of fairly extensive COPD. Huge blebs are present occu pying most of the lungs bilaterally with very little lung parenchyma remaining. There is a tiny 9 mm right lower lung nodule. There is also slight scar versus infiltrate right lower lobe medially. Coron tran artery calcifications are seen typically seen with coronary artery disease and clinical correlati on and evaluation is suggested. CONCLUSION: 1. Extensive COPD with huge blebs and very low lung parenchymal remaining. 2. Loculated left pleural effusion with adjacent parenchymal process may be chronically consolidated lung, however focal mass particularly left lower lobe is difficult to exclude. 3. Nonspecific right lower lung nodule. 4. Right adrenal mass most likely an adenoma, however it is nonspecific. Electronically signed by: Lacie Malik MD Board Certified Radiologist 10/04/2018 5:25 PM EST
[2018-10-04] MEDS: Sod Chloride 0.9% Inj 1,000 ML IV.CONT SCH (17:45)
[2018-10-04 18:43] LABS: ABG Base Excess 7.6 mmol/L (-2-2); ABG PCO2 54 mmHg (38-42); ABG PO2 106 mmHg (61-120)
[2018-10-04] MEDS: LORazepam 1 MG Tablet PO SCH (21:50)
[2018-10-05 00:04] LABS: Anion Gap 7 meq/L (5-15); Blood Urea Nitrogen 6 mg/dL (7-18); Calcium 8.5 mg/dL (8.5-10.1); Carbon Dioxide 30.2 meq/L (21.0-32.0); Chloride 93 meq/L (98-107); Glomerular Filtration Rate Greater Than 89 mL/min (>89); Glucose,Random 165 mg/dL (74-106); Sodium 130 meq/L (136-145)
[2018-10-05 00:05] LABS: Potassium 5.2 meq/L (3.5-5.1)
[2018-10-05] MEDS: Haloperidol 1 MG Tablet PO SCH ×2 (00:15→21:09)
[2018-10-05] MEDS: Benztropine Inj 2 MG/2 ML Ampul IM SCH ×2 (00:16→09:17)
[2018-10-05] MEDS: Piperacil/Tazo 4.5 GM Premix 4.5 GM/100 ML BAG IV.SIG SCH ×5 (00:16→21:11)
[2018-10-05] MEDS: Sod Chloride 0.9% Inj 1,000 ML IV.CONT SCH ×3 (00:20→18:20)
[2018-10-05] MEDS: MethylPREDNISolone Sod Succinate Inj 40 MG/ML Vial IV.PUSH SCH ×4 (04:53→21:11)
[2018-10-05] MEDS: Heparin - SQ 10,000 UNITS/ML Vial SQ SCH ×2 (06:00→15:15)
[2018-10-05 08:57] LABS: Hematocrit 32.8 % (39.0-51.0); Lymph # (Auto) 0.5 th/mm3 (1.0-4.8); Lymph % (Auto) 2.4 % (9.0-44.0); Mean Corpuscular HGB Conc 33.4 % (32.0-36.0); Mean Corpuscular Hemoglobin 29.8 pg (27.0-34.0); Mean Corpuscular Volume 89.2 fL (80.0-100.0); Mean Platelet Volume 6.8 fL (7.0-11.0); Mono # (Auto) 0.6 th/mm3 (0.0-0.9); Mono % (Auto) 3.1 % (0.0-8.0); Neut # (Auto) 19.2 th/mm3 (1.8-7.7); Neut % (Auto) 94.5 % (16.0-70.0); Platelet Count 521 th/mm3 (150-450); Red Blood Count 3.68 mil/mm3 (4.50-5.90); Red Cell Distribution Width 14.2 % (11.6-17.2); White Blood Count 20.4 th/mm3 (4.0-11.0)
[2018-10-05] MEDS: Finasteride 5 MG Tablet PO SCH (09:04)
[2018-10-05] MEDS: LORazepam 1 MG Tablet PO SCH ×2 (09:04→21:09)
[2018-10-05] MEDS: dilTIAZem CD 240 MG Capsule PO SCH (09:04)
[2018-10-05 09:23] LABS: Alanine Aminotransferase 31 U/L (12-78); Albumin 2.2 g/dL (3.4-5.0); Alkaline Phosphatase 86 U/L (45-117); Anion Gap 5 meq/L (5-15); Aspartate Aminotransferase 15 U/L (15-37); Blood Urea Nitrogen 6 mg/dL (7-18); Calcium 8.7 mg/dL (8.5-10.1); Carbon Dioxide 34.8 meq/L (21.0-32.0); Chloride 93 meq/L (98-107); Glomerular Filtration Rate Greater Than 89 mL/min (>89); Glucose,Random 146 mg/dL (74-106); Sodium 133 meq/L (136-145); Total Protein 7.7 g/dL (6.4-8.2)
--- NOTE | 2018-10-05 11:19 | P.PNFP ---
Subjective Interval history: Patient was seen at bedside this morning in the presence of his sister. There were no acute events overnight. Patient denies any pain this morning. A conversation was had with his sister who is his primary caregiver about his workup so far as well as current management and treatment. Current findings and way forward were discussed in depth. She appreciated the information and thanked us for our care. All questions were answered to her satisfaction. <Sudha Christiano Wei Viridiana - 10/05/18 13:12> Results - Labs Result diagrams: 10/05/18 08:23 10/05/18 08:23 <Quynh Gudino - 10/06/18 09:31> Abnormal lab results 10/04/18 10/04/18 10/04/18 Range/Units 12:50 12:50 12:50 WBC 18.7 H (4.0-11.0) th/mm3 RBC 3.97 L (4.50-5.90) mil/mm3 Hgb 11.7 L (13.0-17.0) gm/dL Hct 35.4 L (39.0-51.0) % Plt Count 545 H (150-450) th/mm3 MPV (7.0-11.0) fL Neut % (Auto) 88.9 H (16.0-70.0) % Lymph % (Auto) 3.0 L (9.0-44.0) % Neut # (Auto) 16.6 H (1.8-7.7) th/mm3 Lymph # (Auto) 0.6 L (1.0-4.8) th/mm3 Gove # (Auto) 1.5 H (0.0-0.9) th/mm3 Seg Neuts % (Manual) 81 H (16-70) % Band Neuts % (Manual) 11 H (0-6) % Lymphocytes % (Manual) 1 L (9-44) % Abs Neuts (Manual) 17.2 H (1.8-7.7) th/mm3 Platelet Estimate High H (Normal) ABG pCO2 (38-42) mmHg ABG HCO3 (22-26) mmol/L ABG Base Excess (-2-2) mmol/L Hemoglobin (12.0-16.0) G/DL Sodium 127 L (136-145) meq/L Potassium (3.5-5.1) meq/L Chloride 87 L (98-107) meq/L Carbon Dioxide 35.3 H (21.0-32.0) meq/L BUN (7-18) mg/dL Creatinine 0.58 L (0.60-1.30) mg/dL Random Glucose 165 H (74-106) mg/dL Troponin I Less than 0.02 L (0.02-0.05) ng/mL Albumin 2.2 L (3.4-5.0) g/dL Procalcitonin (0.00-0.07) ng/mL Urine Clarity Hazy H (Clear) Urine Protein 30 H (Neg-Trace) mg/dL Urine Ketones Trace H (Negative) mg/dL Urine Mucus Few H (Occasional) /lpf 10/04/18 10/04/18 10/04/18 Range/Units 18:38 20:35 20:35 WBC (4.0-11.0) th/mm3 RBC (4.50-5.90) mil/mm3 Hgb (13.0-17.0) gm/dL Hct (39.0-51.0) % Plt Count (150-450) th/mm3 MPV (7.0-11.0) fL Neut % (Auto) (16.0-70.0) % Lymph % (Auto) (9.0-44.0) % Neut # (Auto) (1.8-7.7) th/mm3 Lymph # (Auto) (1.0-4.8) th/mm3 Gove # (Auto) (0.0-0.9) th/mm3 Seg Neuts % (Manual) (16-70) % Band Neuts % (Manual) (0-6) % Lymphocytes % (Manual) (9-44) % Abs Neuts (Manual) (1.8-7.7) th/mm3 Platelet Estimate (Normal) ABG pCO2 54 H* (38-42) mmHg ABG HCO3 33 H (22-26) mmol/L ABG Base Excess 7.6 H (-2-2) mmol/L Hemoglobin 10.3 L (12.0-16.0) G/DL Sodium 130 L (136-145) meq/L Potassium 5.2 H (3.5-5.1) meq/L Chloride 93 L (98-107) meq/L Carbon Dioxide (21.0-32.0) meq/L BUN 6 L (7-18) mg/dL Creatinine 0.50 L (0.60-1.30) mg/dL Random Glucose 165 H (74-106) mg/dL Troponin I (0.02-0.05) ng/mL Albumin (3.4-5.0) g/dL Procalcitonin 0.22 H (0.00-0.07) ng/mL Urine Clarity (Clear) Urine Protein (Neg-Trace) mg/dL Urine Ketones (Negative) mg/dL Urine Mucus (Occasional) /lpf 10/05/18 10/05/18 Range/Units 08:23 08:23 WBC 20.4 H (4.0-11.0) th/mm3 RBC 3.68 L (4.50-5.90) mil/mm3 Hgb 11.0 L (13.0-17.0) gm/dL Hct 32.8 L (39.0-51.0) % Plt Count 521 H (150-450) th/mm3 MPV 6.8 L (7.0-11.0) fL Neut % (Auto) 94.5 H (16.0-70.0) % Lymph % (Auto) 2.4 L (9.0-44.0) % Neut # (Auto) 19.2 H (1.8-7.7) th/mm3 Lymph # (Auto) 0.5 L (1.0-4.8) th/mm3 Gove # (Auto) (0.0-0.9) th/mm3 Seg Neuts % (Manual) (16-70) % Band Neuts % (Manual) (0-6) % Lymphocytes % (Manual) (9-44) % Abs Neuts (Manual) (1.8-7.7) th/mm3 Platelet Estimate (Normal) ABG pCO2 (38-42) mmHg ABG HCO3 (22-26) mmol/L ABG Base Excess (-2-2) mmol/L Hemoglobin (12.0-16.0) G/DL Sodium 133 L (136-145) meq/L Potassium (3.5-5.1) meq/L Chloride 93 L (98-107) meq/L Carbon Dioxide 34.8 H (21.0-32.0) meq/L BUN 6 L (7-18) mg/dL Creatinine 0.44 L (0.60-1.30) mg/dL Random Glucose 146 H (74-106) mg/dL Troponin I (0.02-0.05) ng/mL Albumin 2.2 L (3.4-5.0) g/dL Procalcitonin (0.00-0.07) ng/mL Urine Clarity (Clear) Urine Protein (Neg-Trace) mg/dL Urine Ketones (Negative) mg/dL Urine Mucus (Occasional) /lpf Short CBC 10/04/18 10/05/18 Range/Units 12:50 08:23 WBC 18.7 H 20.4 H (4.0-11.0) th/mm3 Hgb 11.7 L 11.0 L (13.0-17.0) gm/dL Hct 35.4 L 32.8 L (39.0-51.0) % Plt Count 545 H 521 H (150-450) th/mm3 BMP 10/04/18 10/04/18 10/05/18 12:50 20:35 08:23 Sodium 127 L 130 L 133 L Potassium 5.0 5.2 H 4.0 D Chloride 87 L 93 L 93 L Carbon Dioxide 35.3 H 30.2 34.8 H BUN 8 6 L 6 L Creatinine 0.58 L 0.50 L 0.44 L Calcium 8.6 8.5 8.7 Cardiac Enzymes 10/04/18 Range/Units 12:50 Total Creatine Kinase 49 (39-308) U/L Troponin I Less than 0.02 L (0.02-0.05) ng/mL Liver Function 10/04/18 10/05/18 Range/Units 12:50 08:23 Total Bilirubin 0.2 0.2 (0.2-1.0) mg/dL AST 31 15 (15-37) U/L ALT 33 31 (12-78) U/L Alkaline Phosphatase 95 86 (45-117) U/L Albumin 2.2 L 2.2 L (3.4-5.0) g/dL Urine 10/04/18 Range/Units 12:50 Urine Color Yellow (Yellw/Straw) Urine Clarity Hazy H (Clear) Urine pH 6.0 (5.0-8.5) Ur Specific Barton 1.018 (1.002-1.035) Urine Protein 30 H (Neg-Trace) mg/dL Urine Glucose (UA) Negative (Negative) mg/dL <Christiano Roman - 10/05/18 11:19> - Imaging Impressions Chest Ultrasound 10/05/18 00:00 CONCLUSION: 1. Small left pleural effusion. Inadequate for thoracentesis. Chest X-Ray 10/06/18 00:00 CONCLUSION: Possible developing pleural-based process in the lateral right lower lung. Otherwise grossly stable. <Quynh Gudino - 10/06/18 09:31> Impressions Chest CT 10/04/18 00:00 CONCLUSION: 1. Extensive COPD with huge blebs and very low lung parenchymal remaining. 2. Loculated left pleural effusion with adjacent parenchymal process may be chronically consolidated lung, however focal mass particularly left lower lobe is difficult to exclude. 3. Nonspecific right lower lung nodule. 4. Right adrenal mass most likely an adenoma, however it is nonspecific. Chest X-Ray 10/04/18 12:21 CONCLUSION: Abnormal appearance left hemithorax with large left pleural effusion extending to the apex and segmental infiltrates in left mid lung. <Christiano Roman - 10/05/18 11:19> Physical Exam Vital signs: Vital Signs 10/05/18 09:50 10/05/18 09:51 10/05/18 11:30 Temperature Pulse Rate 110 H Respiratory Rate 24 Blood Pressure 180/104 H Pulse Oximetry 99 10/05/18 12:00 10/05/18 13:36 10/05/18 16:00 Temperature 98.5 F 98.8 F Pulse Rate 99 H 112 H 102 H Respiratory Rate 26 H 20 24 Blood Pressure 154/86 H 150/90 H Pulse Oximetry 99 99 10/05/18 17:06 10/05/18 20:00 10/05/18 20:05 Temperature 97.0 F L Pulse Rate 105 H 91 H 102 H Respiratory Rate 30 H 18 Blood Pressure 147/78 H Pulse Oximetry 100 98 10/05/18 23:53 10/06/18 00:00 10/06/18 03:16 Temperature 97.3 F L Pulse Rate 97 H 101 H 102 H Respiratory Rate 25 H 22 21 Blood Pressure 147/78 H Pulse Oximetry 95 100 100 10/06/18 04:00 10/06/18 07:00 10/06/18 09:20 Temperature Pulse Rate 103 H 95 H 104 H Respiratory Rate 22 26 H Blood Pressure Pulse Oximetry 100 99 Intake & Output 10/05/18 10/06/18 10/06/18 18:59 06:59 18:59 Intake Total 3120 / 3120 2640 / 2640 Output Total 1800 / 1800 3225 / 3225 Balance 1320 / 1320 -585 / -585 Weight 81.8 kg Intake: IV 2300 / 2300 1200 / 1200 NS Inj 1,000 ML @ 125 mls/hr IV 2000 / 2000 1000 / 1000 .CONT .Q8H JEFF Rx#:[id number] Zosyn 4.5 GM Premix 4.5 gm In 300 / 300 200 / 200 100 ml @ 200 mls/hr IV.SIG Q6H JEFF Rx#:[id number] Oral 820 / 820 1440 / 1440 Output: Urine 1800 / 1800 3225 / 3225 Other: # Incontinent Voids 1 Date of Last Bowel Movement 10/05/18 10/05/18 <Quynh Gudino - 10/06/18 09:31> Vital Signs 10/04/18 11:46 10/04/18 12:26 10/04/18 12:43 Temperature 98.8 F Pulse Rate 110 H 104 H 104 H Respiratory Rate 28 H 30 H Blood Pressure 144/86 H 171/85 H Pulse Oximetry 93 L 96 98 10/04/18 14:57 10/04/18 16:12 10/04/18 16:40 Temperature 98.1 F Pulse Rate 100 H 116 H 104 H Respiratory Rate 28 H 28 H 22 Blood Pressure 142/95 H 167/95 H Pulse Oximetry 99 98 10/04/18 17:39 10/04/18 18:45 10/04/18 20:07 Temperature Pulse Rate 112 H 102 H 112 H Respiratory Rate 26 H 26 H 22 Blood Pressure 119/58 L 121/60 Pulse Oximetry 98 99 98 10/04/18 23:59 10/05/18 00:00 10/05/18 00:12 Temperature Pulse Rate 98 H 127 H Respiratory Rate 18 26 H Blood Pressure 144/72 H Pulse Oximetry 100 93 L 97 10/05/18 03:51 10/05/18 08:00 10/05/18 09:14 Temperature 99.0 F Pulse Rate 110 H 99 H 98 H Respiratory Rate 20 28 H 22 Blood Pressure 153/88 H 143/87 H Pulse Oximetry 99 100 10/05/18 09:50 10/05/18 09:51 Temperature Pulse Rate 110 H Respiratory Rate 24 Blood Pressure Pulse Oximetry 99 Intake & Output 10/04/18 10/05/18 10/05/18 18:59 06:59 18:59 Intake Total 1350 / 1350 1340 / 1340 100 / 100 Output Total 640 / 640 725 / 725 Balance 710 / 710 615 / 615 100 / 100 Weight 92.533 kg 84.9 kg Intake: IV 1350 / 1350 1100 / 1100 100 / 100 NS Inj 1,000 ML @ 125 mls/hr IV 1000 / 1000 .CONT .Q8H JEFF Rx#:[id number] Azithromycin Inj 500 MG In NS 250 / 250 Inj 250 ML @ 250 mls/hr IV.SIG STAT STA Rx#:[id number] Zosyn 4.5 GM Premix 4.5 gm In 100 / 100 100 / 100 100 / 100 100 ml @ 200 mls/hr IV.SIG Q6H JEFF Rx#:[id number] NS Inj 1,000 ML @ Wide Open IV. 1000 / 1000 SIG BOLUS ONE Rx#:[id number] Oral 240 / 240 Output: Urine 340 / 340 725 / 725 Stool 300 / 300 Other: # Voids 1 Date of Last Bowel Movement 10/04/18 # Bowel Movements 1 <Christiano Roman - 10/05/18 11:19> Narrative: GENERAL: Elderly appearing gentleman laying in bed on facemask 10 L. In no acute distress. CARDIOVASCULAR: Regular rate and rhythm without obvious murmurs, gallops, or rubs. RESPIRATORY: Breath sounds decreased in mid and lower left lobe. Right lung davidson grossly clear to auscultation. GASTROINTESTINAL: Abdomen soft, non-tender, nondistended. BS WNL. MUSCULOSKELETAL: No cyanosis or edema. Strength grossly WNL. NEURO/PSYCH: Patient confused. Unable to answer questions appropriately. Appears to have fluctuating concentration and appropriateness of answers. Cranial nerves II through XII grossly intact with no facial drooping. Moving all extremities. <Christiano Roman - 10/05/18 13:12> Assessment and Plan - Assessment (1) COPD (chronic obstructive pulmonary disease) Code(s): J44.9 - Chronic obstructive pulmonary disease, unspecified Status: Acute (2) Schizophrenia Code(s): F20.9 - Schizophrenia, unspecified Status: Acute (3) Pneumonia Code(s): J18.9 - Pneumonia, unspecified organism Status: Acute (4) Pleural effusion on left Code(s): J90 - Pleural effusion, not elsewhere classified Status: Acute (5) HTN (hypertension) Code(s): I10 - Essential (primary) hypertension Status: Acute (6) Lung nodule Code(s): R91.1 - Solitary pulmonary nodule Status: Acute (7) BPH (benign prostatic hyperplasia) Code(s): N40.0 - Benign prostatic hyperplasia without lower urinary tract symptoms Status: Acute (8) Nutrition, metabolism, and development symptoms Code(s): R63.8 - Other symptoms and signs concerning food and fluid intake Status: Acute <Quynh Gudino - 10/06/18 09:31> (1) COPD (chronic obstructive pulmonary disease) Code(s): J44.9 - Chronic obstructive pulmonary disease, unspecified Status: Acute Plan: This a 63 yoM with a history of COPD and schizophrenia who is accompanied by his care givers, Gladys Cassidy and Lázaro Andrew who are friends of the family for a one month history of increased oxygen demand and cough. Patient found to have left lower lobe consolidation as well as left lower lobe pleural effusion. Patient received 4.5 g of Zosyn as well as 500 mg of azithromycin in the ED. Patient meets sepsis criteria. Bolus patient liter of normal saline now. On admission: -DDx includes COPD exacerbation, pneumonia, pleural effusion secondary to malignancy. -Pt. has a pulmonary hx sig. for smoking and multiple URIs in the past. Number COPD exacerbations unknown. -Patient normally on 6 L home O2 now requiring 10 L. -WBC 18.7, neutrophil percent 88.9 supporting infectious etiology. -EKG unremarkable with exception of sinus tachycardia with possible left ventricular hypertrophy. -BNP WNLs. -CXR showed hyperinflation, mild flattening of diaphragm and elevated clavicles c/w COPD. -Chest CT on 10/04 showed extensive COPD with huge blebs and very low lung parenchyma remaining. Loculated left pleural effusion with adjacent parenchymal process which may be chronically consolidated lung, however focal mass particular left lobe is difficult to exclude. Nonspecific right lower lung nodule. Right adrenal mass most likely an adenoma. Plan: -Gold COPD criteria cannot be calculated as patient's exacerbation history nor FEV1 percentage of predicted is currently known -Treat with Supplemental O2 via nonrebreather to maintain sats between 88 and 92 %. Encourage pt. to get OOB and ambulate. -Normal saline at 125 mL/h -Duonebs q4 hrs. jeff -Albuterol 2.5 mg nebulized Q2 hrs schedule -Solu-Medrol 60 mg IV every 6 -Protonix 40 mg PO daily for GI protection and decr. chances of aspiration pneumonia. -Zosyn 4.5 g IV every 6 -Mucinex 600 mg tab PO BID PRN congestion. -Incentive spirometer -Restart home budesonide -Restart home Spiriva -Follow-up with pulmonology consult (2) Schizophrenia Code(s): F20.9 - Schizophrenia, unspecified Status: Acute Plan: This patient has a history of schizophrenia. On admission patient appears to have fluctuating levels of cognition as his answers to questions fluctuate. Per caregivers patient is nonaggressive not combative. -Admit patient to room near nurses station -No QT prolongation noted on EKG -Continue home haloperidol -Continue home benztropine -Continue home Ativan 1 mg twice daily (3) Pneumonia Code(s): J18.9 - Pneumonia, unspecified organism Status: Acute Plan: This patient presents with an acute COPD exacerbation as well as consolidation versus effusion on left lower lobe. Please see plan above for COPD exacerbation. -White blood cell count elevated at 20.4 with a pro-calcitonin of 0.22 -CT showed pleural effusion -At this time pneumonia cannot be ruled out, continue with treatment as stated above (4) Pleural effusion on left Code(s): J90 - Pleural effusion, not elsewhere classified Status: Acute Plan: Patient presents with a left-sided pleural effusion found on chest x-ray. Patient was scheduled to receive CT scan at the [facility] due to a possible lung mass. This patient is a former smoker. -CT scan of the chest with contrast ordered -Interventional radiology consult for thoracentesis ordered -Follow-up with pleural fluid cell count, LDH, protein, glucose (5) HTN (hypertension) Code(s): I10 - Essential (primary) hypertension Status: Acute Plan: Patient suffers from history of hypertension. On admission patient's blood pressure was 142/95. -Continue patient's diltiazem -Continue patient's metoprolol -Vasotec on board for blood pressures higher than 180/110 (6) Lung nodule Code(s): R91.1 - Solitary pulmonary nodule Status: Acute Plan: Patient has lung nodule found on CT imaging of the chest. At this time a biopsy would not be appropriate. Patient to follow-up outpatient. (7) BPH (benign prostatic hyperplasia) Code(s): N40.0 - Benign prostatic hyperplasia without lower urinary tract symptoms Status: Acute Plan: Patient suffers from benign prostatic hyperplasia. -Continue finasteride -Continue alfuzosin (8) Nutrition, metabolism, and development symptoms Code(s): R63.8 - Other symptoms and signs concerning food and fluid intake Status: Acute Plan: Fluids: Not indicated at this time Electrolytes: Replete as needed Nutrition: Regular diet DVT prophylaxis: Subcu heparin 5000 units 3 times daily <Christiano Roman - 10/05/18 13:03> - Attending Attestation Patient seen and examined the morning of 10/05/2018, discussed with resident team. I agree with assessment and management as documented and discussed with me. Pt without complaints. Sister at the bedside. He is amenable to having a thoracentesis. Await pulm consult/recs. <Quynh Gudino - 10/06/18 09:31> <Quynh Gudino - Last Filed: 10/06/18 09:31> (1) COPD (chronic obstructive pulmonary disease) Qualifiers: COPD type: emphysema Emphysema type: panlobular Qualified Code(s): J43.1 - Panlobular emphysema <Quynh Gudino - Last Filed: 10/06/18 09:31> (1) COPD (chronic obstructive pulmonary disease) Qualifiers: COPD type: emphysema Emphysema type: panlobular Qualified Code(s): J43.1 - Panlobular emphysema
--- NOTE | 2018-10-05 14:17 | MB ---
cc: Leona Lester MD DATE: 10/05/2018 HISTORY OF PRESENT ILLNESS: The patient is a 63-year-old male with past medical history of severe COPD on home O2 at 5-8 liter nasal cannula, schizophrenia, who presented to the [facility] ED with progressive worsening shortness of breath and a productive cough. He is being followed up at the [facility]; however, he was last seen there approximately 1 year ago. On initial presentation, the patient was found to have leukocytosis with a WBC of 18.7 and was hyponatremic with a sodium level of 130. He was admitted under the Family Medicine team and was started on bronchodilators, steroids, and antibiotics. A CT scan of the chest was obtained, which showed extensive COPD with huge blebs, loculated left pleural effusion, with adjacent parenchymal process, which may be chronically consolidated lung, and nonspecific right lower lung nodule 9 mm in size. According to the patient's sister, he gets short of breath with minimal exertion. The patient is on nebulizers at home along with Symbicort, Spiriva, and Combivent. He denies any wheezing. The patient quit smoking 4 years ago and used to smoke 1-2 packs per day for many years. PAST MEDICAL HISTORY: Significant for COPD, schizophrenia, hypertension. PAST SURGICAL HISTORY: Bilateral inguinal hernia repair, previous TURP. ALLERGIES: CIPRO. FAMILY HISTORY: Mother passed of cancer, unknown type. SOCIAL HISTORY: The patient lives with his sister. He quit smoking 4 years ago and used to smoke 1-2 packs per day for at least 20 years. No history of alcohol use. ACTIVE MEDICATIONS: Include: 1. DuoNeb. 2. Vasotec. 3. Proscar. 4. Solu-Medrol. 5. Lopressor. 6. Protonix. 7. Zosyn. REVIEW OF SYSTEMS: As per HPI, otherwise review of systems unremarkable. PHYSICAL EXAMINATION: GENERAL: A 63-year-old male lying in bed in mild respiratory distress. VITAL SIGNS: Temperature 99.0, pulse of 98, respiratory rate 24, blood pressure 143/87, saturation on a nonrebreather mask with saturation of 99-100%. HEENT: Atraumatic, normocephalic. Pupils are equal, round, reactive to light and accommodation. Extraocular muscles intact. Conjunctivae pink, Mouth is clear. Mucosa within normal. NECK: Supple. No JVD noted. No adenopathy. Trachea midline. CARDIOVASCULAR: Regular rhythm. Normal S1, S2. No murmurs, rubs or gallops noted. PULMONARY: Bilateral equal air entry. No rales or wheezing. ABDOMEN: Soft, nontender. No distention. Positive bowel sounds. EXTREMITIES: No cyanosis, clubbing, edema. NEUROLOGIC: No focal sensory deficit. LABORATORY DATA: WBC 20, hemoglobin 11, hematocrit 32, and platelet count 521,000. Sodium 133, potassium 4, chloride 93, CO2 of 34, BUN 6, creatinine 0.64, glucose 146. ABG on a nonrebreather showed a pH of 7.40, CO2 of 54, pO2 of 106, bicarbonate 33, saturation 96%. RADIOGRAPHIC STUDIES: CT scan of the chest showed COPD changes with large blebs, loculated left pleural effusion, and nonspecific right lower lung nodule. IMPRESSION: 1. Acute hypoxemic and hypercapnic respiratory insufficiency. 2. Chronic obstructive pulmonary disease exacerbation. 3. Severe bullous lung disease. 4. Loculated left pleural effusion with possible chronically consolidated lung. 5. Right lower lobe lung nodule 9 mm in size. 6. History of tobacco use. 7. Hypertension. 8. History of schizophrenia. RECOMMENDATIONS: 1. Wean down oxygen as tolerated, maintain sats above 92%. 2. Continue with bronchodilators in the form of DuoNeb and Symbicort. 3. Continue with Solu-Medrol 60 mg IV every 6 hours. 4. BiPAP p.r.n. for respiratory distress. 5. Patient recently had a pulmonary function test done as an outpatient yesterday per sister. Will obtain a copy of the results. 5. Will consult Cardiothoracic Surgery. Case discussed with Dr. Quynh Rodriguez, evaluation for possible lung volume reduction surgery. 6. Continue with antibiotics. The patient is on Zosyn. Monitor for signs of infection, which include fever and WBC. His legionella urinary antigen, nasal washing screening are all negative. Blood culture from 10/04/2018 shows no growth to date. Obtain a sputum culture. 7. Monitor renal function and electrolyte replacement as needed. 8. Watch for signs of fluid overload. Will give Diamox 250 mg IV x1. 9. Gastrointestinal and deep venous thrombosis prophylaxis. The patient is on heparin subcutaneously. 10. Further recommendations will be based on hospital course. MD Norma Santos , 01:26 PM , 01:37 PM
--- NOTE | 2018-10-05 14:29 | P.CON ---
History of Present Illness Service: CT Surgery Consult date: 10/05/18 Requesting Physician: Leona Lester Reason for Consult: Severe COPD, loculated left pleural effusion Primary Care Provider: UNKNOWN Chief Complaint: Dyspnea, leukocytosis History of Present Illness: 63 yoM with a history of longstanding tobacco abuse from which he quit ~ 5 yrs ago, severe COPD with high oxygen dependence, and schizophrenia who is dependent on caregivers for a one month history of increased oxygen demand and cough. The patient was on 8 liters O2 and has developed cough with sputum production. He has required ~10 liters O2 lately. He was referred to the ED due to [facility] Care givers also report a fever of 101.7 that began on Sunday. FMHx: Mother passed of cancer at unknown age but was elderly Social: Lives with his sister who is a filler sifter machine and his primary care taker. Patient was in the [employer] for years. Smoked several packs for several years ( details not known) quit 7 years ago. No alcohol or drug abuse. Review of Systems Constitutional: Reports fatigue, Reports lack of energy, Denies anorexia, Denies body ache(s), Denies chills, Denies daytime sleepiness, Denies excessive sweating, Denies fever(s), Denies headache(s), Denies increased appetite, Denies malaise, Denies night sweats, Denies weakness, Denies weight gain, Denies weight loss, Denies other Eyes: Denies blind spots, Denies blurry vision, Denies bulging eyes, Denies change in vision, Denies double vision, Denies discharge, Denies dry eyes, Denies floaters, Denies irritation, Denies itchy eyes, Denies loss of vision, Denies pain, Denies requires corrective lenses, Denies sensitivity to light, Denies other Ears, Nose, Mouth, and Throat: Denies abnormal hearing, Denies bleeding gums, Denies bad breath, Denies change in voice, Denies dental pain, Denies difficulty swallowing, Denies dizziness, Denies dry mouth, Denies ear discharge , Denies ear pain, Denies facial pain, Denies headache(s), Denies hearing loss, Denies hoarseness, Denies lip swelling, Denies nosebleed, Denies mouth lesions, Denies mouth pain, Denies nasal congestion, Denies nasal discharge, Denies nasal obstruction, Denies nasal trauma, Denies neck lump, Denies neck pain, Denies nose pain, Denies pain with swallowing, Denies poor balance, Denies post nasal drip, Denies ringing in the ears, Denies sinus pain, Denies sinus pressure , Denies sore throat, Denies throat swelling, Denies tongue swelling, Denies other Cardiovascular: Denies chest pain, Denies chest pain at rest, Denies chest pain with activity, Denies excessive sweating, Denies fainting, Denies fast heart rate, Denies foot swelling, Denies generalized swelling, Denies irregular heart rhythm, Denies leg pain with activity, Denies leg sores, Denies leg swelling, Denies lightheadedness, Denies radiating jaw, neck or arm pain, Denies rapid, pounding, or irregular heartbeat, Denies shortness of breath, Denies shortness of breath with activity, Denies shortness of breath when lying down, Denies shortness of breath causing sudden awakening, Denies slow heart rate, Denies other Respiratory: Reports chest congestion, Reports cough, Reports excessive phlegm production, Reports shortness of breath Gastrointestinal: Denies abdominal pain, Denies belching, Denies black, tarry stools, Denies bloating, Denies bright, red blood in stools, Denies change in bowel habits, Denies constant urge to pass stool, Denies change in stools, Denies coffee ground vomit, Denies constipation, Denies cramping, Denies difficulty swallowing, Denies excessive passing of gas, Denies feeling full early, Denies heartburn, Denies incontinent of stools, Denies loose stools, Denies nausea, Denies pain with swallowing, Denies vomiting, Denies vomiting blood, Denies other Genitourinary: Denies blood in semen, Denies blood in urine, Denies decreased urination, Denies difficulty urinating, Denies difficulty with ejaculations, Denies erectile dysfunction, Denies genital lesions, Denies genital pain, Denies painful urination, Denies side pain, Denies frequent nighttime urination , Denies painful ejaculations, Denies penile discharge, Denies scrotal swelling , Denies testicle lump, Denies testicle pain, Denies urinary frequency, Denies urinary hesitancy, Denies urinary incontinence, Denies urinary urgency, Denies other Musculoskeletal: Denies abnormal walking, Denies back pain, Denies body aches, Denies decreased muscle mass, Denies deformity, Denies joint pain, Denies joint swelling, Denies limited joint movement, Denies loss of height, Denies muscle cramps, Denies muscle weakness, Denies neck pain, Denies numbness, Denies radiating pain into limb, Denies stiffness, Denies tingling, Denies other Skin/Breast: Denies acne, Denies bleeding lesions, Denies boil, Denies breast swelling, Denies breast skin changes, Denies breast pain, Denies breast lump, Denies change in breast shape, Denies change in hair, Denies change in skin color, Denies changing lesions, Denies dry skin, Denies excessive hair growth, Denies hair loss, Denies itching, Denies lesions, Denies nail changes, Denies new lesions, Denies nipple discharge, Denies non-healing lesions, Denies redness , Denies sensitivity to light, Denies rash, Denies skin pain, Denies skin ulcer , Denies sores, Denies stretch watts, Denies unusual bruising, Denies wounds, Denies yellowing of the skin, Denies other Neurologic: Denies abnormal hearing, Denies abnormal movements, Denies abnormal speech, Denies abnormal walking, Denies behavioral changes, Denies burning sensations, Denies confusion, Denies dizziness, Denies fainting, Denies frequent falls, Denies headache(s), Denies lack of coordination, Denies localized weakness, Denies loss of vision, Denies memory loss, Denies numbness, Denies other visual disturbances, Denies radiating pain, Denies restless legs, Denies convulsions, Denies seizure-like activity, Denies sensory deficit, Denies tingling, Denies tingling/numbness/burning sensations, Denies tremor(s), Denies unsteadiness, Denies weakness, Denies other Psychiatric: Reports hearing things others do not hear, Reports seeing things others do not see, Reports sensing things others do not sense Endocrine: Denies cold intolerance, Denies excessive sweating, Denies flushing, Denies heat intolerance, Denies increased hunger, Denies increased thirst, Denies increased urination, Denies rapid, pounding, or irregular heartbeat, Denies other Hematologic/Lymphatic: Denies easy bleeding, Denies easy bruising, Denies enlarged lymph nodes, Denies other Allergic/Immunologic: Denies GI upset with certain foods, Denies hives, Denies itchy eyes, Denies lip swelling, Denies seasonal runny nose, Denies throat swelling, Denies tongue swelling, Denies wheezing, Denies other PMFSH - History History Provided By: Patient, Family Member - Medical History Medical History: Medical History (Last Reviewed 10/05/18 @ 14:20 by Deirdre Rodriguez MD) COPD (chronic obstructive pulmonary disease) Hypertension Inguinal hernia bilateral, non-recurrent Prostate hypertrophy - Surgical History Surgical History: Surgical History (Last Reviewed 10/05/18 @ 14:20 by Deirdre Rodriguez MD) History of transurethral resection of prostate - Social History I have reviewed the patient's Social History: Yes - Tobacco History Second Hand Smoke Exposure: Yes Tobacco Use In Past 30 Days: No Smoking Status: Former smoker Tobacco Type: Cigarettes - Alcohol History How Often Do You Have a Drink Containing Alcohol: Never - Substance Use History Substance History: No History of Abuse - Travel History Recent Travel in the [place] Within the Last 8 Weeks: No Recent Travel Out of the Country Within the Last 8 Weeks: No - Immunization History Tetanus Immunization: >5 Years Medications and Allergies Active Medications: Active Medications Acetaminophen (Tylenol) 650 mg PO Q4H PRN PRN Reason: Temp > 100.4 Al Hydroxide/Mg Hydroxide (Milk Of [place] Liq) 30 ml PO Q12H PRN PRN Reason: Mild Constipation Albuterol (Duoneb Neb ([facility])) 1 ampul NEB Q4HR NEB JENNIFER Last Admin: 10/05/18 13:33 Dose: 1 ampul Albuterol (Albuterol Neb (Jennifer)) 2.5 mg NEB Q2HR NEB JENNIFER Last Admin: 10/05/18 06:25 Dose: Not Given Benztropine Mesylate (Cogentin) 2 mg PO BID [facility] Bisacodyl (Dulcolax Supp) 10 mg RECTAL DAILY PRN PRN Reason: SEVERE CONSITIPATION Budesonide/Formoterol Fumarate (Symbicort 160/4.5 Mcg Inh) 1 puff INH BID [facility] Diltiazem HCl (Cardizem Cd 24hr) 240 mg PO DAILY [facility] Last Admin: 10/05/18 09:04 Dose: 240 mg Enalaprilat (Vasotec Inj) 1.25 mg IV.PUSH Q8H PRN PRN Reason: HYPERTENSION Last Admin: 10/05/18 13:19 Dose: 1.25 mg Finasteride (Proscar) 5 mg PO DAILY [facility] Last Admin: 10/05/18 09:04 Dose: 5 mg Guaifenesin (Mucinex Er) 600 mg PO BID PRN PRN Reason: NASAL CONGESTION Haloperidol (Haldol) 2 mg PO HS [facility] Last Admin: 10/05/18 00:15 Dose: 2 mg Heparin Sodium (Porcine) (Heparin Inj) 5,000 units SQ Q8H [facility] Last Admin: 10/05/18 06:00 Dose: 5,000 units Piperacillin/Tazobactam/Dextrose (Zosyn 4.5 Gm Premix) 4.5 gm in 100 mls @ 200 mls/hr IV.SIG Q6H [facility] Last Infusion: 10/05/18 11:43 Dose: Infused Sodium Chloride (Ns Inj) 1,000 mls @ 125 mls/hr IV.CONT .Q8H [facility] Last Admin: 10/05/18 13:09 Dose: 84 mls/hr Lactulose (Lactulose Liq) 30 ml PO DAILY PRN PRN Reason: SEVERE CONSITIPATION Lorazepam (Ativan) 1 mg PO BID [facility] Last Admin: 10/05/18 09:04 Dose: 1 mg Methylprednisolone Sodium Succinate (Solumedrol Inj) 60 mg IV.PUSH Q6H [facility] Last Admin: 10/05/18 09:04 Dose: 60 mg Metoprolol Succinate (Toprol Xl) 50 mg PO BID [facility] Last Admin: 10/05/18 09:04 Dose: 50 mg Ondansetron HCl (Zofran Inj) 4 mg IV.PUSH Q6H PRN PRN Reason: NAUSEA OR VOMITING Pantoprazole Sodium (Protonix) 40 mg PO DAILY [facility] Last Admin: 10/05/18 09:04 Dose: 40 mg Sennosides (Senokot) 17.2 mg PO Q12H PRN PRN Reason: Moderate Constipation Sodium Chloride (Ns Flush) 2 ml IV.FLUSH BID [facility] Last Admin: 10/05/18 09:05 Dose: 2 ml Sodium Chloride (Ns Flush) 2 ml IV.FLUSH PRN PRN PRN Reason: FLUSH AFTER USING IV ACCESS Tamsulosin HCl (Flomax) 0.4 mg PO DAILY [facility] Last Admin: 10/05/18 09:04 Dose: 0.4 mg Tiotropium [place] (Spiriva 18 Mcg Inh) 18 mcg INH DAILY [facility] Allergies Allergy/AdvReac Type Severity Reaction Status Date / Time ciprofloxacin [From Cipro] AdvReac Nausea Verified 10/04/18 12:27 Home Medications Medication Instructions Recorded Confirmed Type alfuzosin 10 mg PO DAILY 10/04/18 10/04/18 History benztropine [Cogentin] 0.5 mg IM BID 10/04/18 10/04/18 History budesonide-formoterol [Symbicort] 2 puff INHALATION BID 10/04/18 10/04/18 History diltiazem HCl 240 mg PO DAILY 10/04/18 10/04/18 History finasteride 5 mg PO DAILY 10/04/18 10/04/18 History haloperidol 2 mg PO HS 10/04/18 10/04/18 History ipratropium-albuterol [Combivent 1 puff INHALATION Q6H 10/04/18 10/04/18 History Respimat] lorazepam [Ativan] 1 mg PO BID 10/04/18 10/04/18 History metoprolol succinate 50 mg PO BID 10/04/18 10/04/18 History tiotropium bromide [Spiriva 2 puff INHALATION DAILY 10/04/18 10/04/18 History Respimat] Physical Exam Vital signs: Vital Signs 10/04/18 14:57 10/04/18 16:12 10/04/18 16:40 Temperature 98.1 F Pulse Rate 100 H 116 H 104 H Respiratory Rate 28 H 28 H 22 Blood Pressure 142/95 H 167/95 H Pulse Oximetry 99 98 10/04/18 17:39 10/04/18 18:45 10/04/18 20:07 Temperature Pulse Rate 112 H 102 H 112 H Respiratory Rate 26 H 26 H 22 Blood Pressure 119/58 L 121/60 Pulse Oximetry 98 99 98 10/04/18 23:59 10/05/18 00:00 10/05/18 00:12 Temperature Pulse Rate 98 H 127 H Respiratory Rate 18 26 H Blood Pressure 144/72 H Pulse Oximetry 100 93 L 97 10/05/18 03:51 10/05/18 08:00 10/05/18 09:14 Temperature 99.0 F Pulse Rate 110 H 106 H 98 H Respiratory Rate 20 28 H 22 Blood Pressure 153/88 H 143/87 H Pulse Oximetry 99 100 10/05/18 09:50 10/05/18 09:51 10/05/18 11:30 Temperature Pulse Rate 110 H Respiratory Rate 24 Blood Pressure 180/104 H Pulse Oximetry 99 10/05/18 12:00 10/05/18 13:36 Temperature 98.5 F Pulse Rate 99 H 112 H Respiratory Rate 26 H 20 Blood Pressure 154/86 H Pulse Oximetry 99 Intake & Output 10/04/18 10/05/18 10/05/18 18:59 06:59 18:59 Intake Total 1350 / 1350 1340 / 1340 1200 / 1200 Output Total 640 / 640 725 / 725 Balance 710 / 710 615 / 615 1200 / 1200 Weight 92.533 kg 84.9 kg Intake: IV 1350 / 1350 1100 / 1100 1200 / 1200 NS Inj 1,000 ML @ 125 mls/hr IV 1000 / 1000 1000 / 1000 .CONT .Q8H JENNIFER Rx#:[id number] Azithromycin Inj 500 MG In NS 250 / 250 Inj 250 ML @ 250 mls/hr IV.SIG STAT STA Rx#:[id number] Zosyn 4.5 GM Premix 4.5 gm In 100 / 100 100 / 100 200 / 200 100 ml @ 200 mls/hr IV.SIG Q6H JENNIFER Rx#:[id number] NS Inj 1,000 ML @ Wide Open IV. 1000 / 1000 SIG BOLUS ONE Rx#:[id number] Oral 240 / 240 Output: Urine 340 / 340 725 / 725 Stool 300 / 300 Other: # Voids 1 Date of Last Bowel Movement 10/04/18 # Bowel Movements 1 - Constitutional no acute distress - Routine HEENT Exam Head: Present: normocephalic, atraumatic Eye: Present: EOMI, PERRL, normal accommodation ENT: Present: mucous membranes moist - Routine Neck Exam Present: supple - Routine Respiratory Exam Present: accessory muscle use, decreased breath sounds, prolonged expiratory phase, wheezes - Routine Cardiovascular Exam Present: RRR, S1, S2. Absent: murmur - Routine Abdominal Exam Present: soft, normoactive bowel sounds. Absent: tenderness - Routine Extremities Exam Present: pulses intact - Routine Skin Exam Present: intact - Routine Neurological Exam Present: alert, oriented X3, CN II-XII intact - Routine Psychiatric Exam Present: unable to assess Results - Labs CBC & Chem 7: 10/05/18 08:23 10/05/18 08:23 Labs: Laboratory Results - last 24 hr 10/04/18 10/04/18 10/04/18 12:50 12:50 15:15 WBC RBC Hgb Hct MCV MCH MCHC RDW Plt Count MPV Neut % (Auto) Lymph % (Auto) [place] % (Auto) Eos % (Auto) Baso % (Auto) Neut # (Auto) Lymph # (Auto) [place] # (Auto) Eos # (Auto) Baso # (Auto) WBC Differential Differential Comment Puncture Site Patient Temperature O2 Saturation ABG pH ABG pCO2 ABG pO2 ABG HCO3 ABG O2 Content ABG Base Excess ABG Methemoglobin Enrique Test Hemoglobin Carboxyhemoglobin O2 Delivery Device Inspired O2 Critical Value Sodium Potassium Chloride Carbon Dioxide Anion Gap BUN Creatinine Estimated GFR Random Glucose Lactic Acid 1.1 Calcium Total Bilirubin AST ALT Alkaline Phosphatase B-Natriuretic Peptide 53 Total Protein Albumin Procalcitonin Urine Color Yellow Urine Clarity Hazy H Urine pH 6.0 Ur Specific [place] 1.018 Urine Protein 30 H Urine Glucose (UA) Negative Urine Ketones Trace H Urine Occult Blood Negative Urine Nitrate Negative Urine Bilirubin Negative Urine Urobilinogen Less than 2 Ur Leukocyte Esterase Negative Urine WBC 3 Hyaline Casts 3 Granular Casts 5 Urine Mucus Few H Micro UA Comment Culture not ind Ur Microscopic Review Not Reportable Urine Culture Comments Culture not ind 10/04/18 10/04/18 10/04/18 18:38 20:35 20:35 WBC RBC Hgb Hct MCV MCH MCHC RDW Plt Count MPV Neut % (Auto) Lymph % (Auto) [place] % (Auto) Eos % (Auto) Baso % (Auto) Neut # (Auto) Lymph # (Auto) [place] # (Auto) Eos # (Auto) Baso # (Auto) WBC Differential Differential Comment Puncture Site Right radial Patient Temperature 98.6 O2 Saturation 96 ABG pH 7.40 ABG pCO2 54 H* ABG pO2 106 ABG HCO3 33 H ABG O2 Content 14.1 ABG Base Excess 7.6 H ABG Methemoglobin 0.6 Enrique Test Y Hemoglobin 10.3 L Carboxyhemoglobin 1.2 O2 Delivery Device Nrb Inspired O2 100 Critical Value Yes Sodium 130 L Potassium 5.2 H Chloride 93 L Carbon Dioxide 30.2 Anion Gap 7 BUN 6 L Creatinine 0.50 L Estimated GFR Greater than 89 Random Glucose 165 H Lactic Acid Calcium 8.5 Total Bilirubin AST ALT Alkaline Phosphatase B-Natriuretic Peptide Total Protein Albumin Procalcitonin 0.22 H Urine Color Urine Clarity Urine pH Ur Specific [place] Urine Protein Urine Glucose (UA) Urine Ketones Urine Occult Blood Urine Nitrate Urine Bilirubin Urine Urobilinogen Ur Leukocyte Esterase Urine WBC Hyaline Casts Granular Casts Urine Mucus Micro UA Comment Ur Microscopic Review Urine Culture Comments 10/04/18 10/05/18 10/05/18 23:28 08:23 08:23 WBC 20.4 H RBC 3.68 L Hgb 11.0 L Hct 32.8 L MCV 89.2 MCH 29.8 MCHC 33.4 RDW 14.2 Plt Count 521 H MPV 6.8 L Neut % (Auto) 94.5 H Lymph % (Auto) 2.4 L [place] % (Auto) 3.1 Eos % (Auto) 0.0 Baso % (Auto) 0.0 Neut # (Auto) 19.2 H Lymph # (Auto) 0.5 L [place] # (Auto) 0.6 Eos # (Auto) 0.0 Baso # (Auto) 0.0 WBC Differential . Differential Comment Auto diff final Puncture Site Patient Temperature O2 Saturation ABG pH ABG pCO2 ABG pO2 ABG HCO3 ABG O2 Content ABG Base Excess ABG Methemoglobin Enrique Test Hemoglobin Carboxyhemoglobin O2 Delivery Device Inspired O2 Critical Value Sodium 133 L Potassium 4.0 D Chloride 93 L Carbon Dioxide 34.8 H Anion Gap 5 BUN 6 L Creatinine 0.44 L Estimated GFR Greater than 89 Random Glucose 146 H Lactic Acid Calcium 8.7 Total Bilirubin 0.2 AST 15 ALT 31 Alkaline Phosphatase 86 B-Natriuretic Peptide 44 Total Protein 7.7 Albumin 2.2 L Procalcitonin Urine Color Urine Clarity Urine pH Ur Specific [place] Urine Protein Urine Glucose (UA) Urine Ketones Urine Occult Blood Urine Nitrate Urine Bilirubin Urine Urobilinogen Ur Leukocyte Esterase Urine WBC Hyaline Casts Granular Casts Urine Mucus Micro UA Comment Ur Microscopic Review Urine Culture Comments - Imaging Impressions Chest CT 10/04/18 00:00 CONCLUSION: 1. Extensive COPD with huge blebs and very low lung parenchymal remaining. 2. Loculated left pleural effusion with adjacent parenchymal process may be chronically consolidated lung, however focal mass particularly left lower lobe is difficult to exclude. 3. Nonspecific right lower lung nodule. 4. Right adrenal mass most likely an adenoma, however it is nonspecific. Assessment and Plan - Assessment (1) Pleural effusion on left Code(s): J90 - Pleural effusion, not elsewhere classified Status: Acute (2) COPD (chronic obstructive pulmonary disease) Code(s): J44.9 - Chronic obstructive pulmonary disease, unspecified Status: Acute - Plan 63y/o male with end stage lung disease from severe COPD with oxygen dependence. He is a very high-risk candidate for surgery based on his oxygen dependence. He may benefit from percutaneous drainage of the loculated left pleural effusion , but this is unlikely to change his poor prognosis. He may benefit from lung volume reduction surgery, but this would be a high-risk procedure. He should be considered for transfer to a lung transplant center for evaluation as more resources and options are available to optimize his outcome. (2) COPD (chronic obstructive pulmonary disease) Qualifiers: COPD type: emphysema Emphysema type: panlobular Qualified Code(s): J43.1 - Panlobular emphysema
--- NOTE | 2018-10-05 15:25 | US ---
EXAM DATE: 10/05/2018 3:19 PM EST AGE/SEX: 63 years / Male INDICATIONS: Left pleural effusion. CLINICAL DATA: This is the patient's initial encounter. Patient reports that signs and symptoms have been present for 1 day and indicates a pain score of 0/10. MEDICAL/SURGICAL HISTORY: Chronic obstructive pulmonary disease. Hypertension. Inguinal hernia bilateral. Prostate hypertrophy. . History of transurethral resection of prostate. COMPARISON: [facility] – [place], CT CHEST W CONTRAST, 10/04/2018. . MEASUREMENTS: Skin To Parietal Pleura:__1.6 cm Skin To Max Safe Depth:__3.5 cm Estimated Fluid Volume:__299 cc Fluid Composition:__inadequate fluid FINDINGS: No marking was performed. CONCLUSION: 1. Small left pleural effusion. Inadequate for thoracentesis. Electronically signed by: Gary Kumari MD Board Certified Radiologist 10/05/2018 3:24 PM EST
[2018-10-05] MEDS: Benztropine 2 MG Tablet PO SCH (21:11)
[2018-10-06] MEDS: Heparin - SQ 10,000 UNITS/ML Vial SQ SCH ×4 (00:34→23:51)
[2018-10-06] MEDS: Budesonide-Formoterol 160/4.5 MCG 6 GM Inhaler INH SCH ×3 (00:36→20:59)
--- NOTE | 2018-10-06 04:04 | P.PNADD ---
Addendum to Inpatient Note Additional information: S: Resident paged on patient at 3:13 a.m., patient per nurse was found to have increased work of breathing, perioral cyanosis, and seemed to have a change in lung exam per respiratory therapist. Resident responded. There is a 63-year- old male with a past medical history of COPD and schizophrenia found to have a left lower lobe consolidation versus mass versus pleural effusion. At bedside, patient states that this is his baseline for the past 6 weeks. He denies any dyspnea, lightheadedness or chest pain. He is able to have full conversations, answering questions appropriately. He states that he has been on 10 L nonrebreather since admission, and currently feels comfortable. O: Vitals: Temp: 97.0, BP: 147/78, heart rate: 101, SaO2: 100% on 10 L nonrebreather. General: Elderly appearing male, laying in bed, increased work of breathing, able to participate in conversation, on 10 L nonrebreather. HEENT: No perioral cyanosis appreciated, normocephalic, atraumatic. CVS: Tachycardic, no murmurs, rubs, or gallops. Respiratory: Diminished breath sounds bilaterally. Extremities: Warm and well perfused. A/P: 63-year-old male with a past medical history of COPD found to have a left lower lobe consolidation versus pleural effusion. Patient recently had change in respiratory exam from diminished breath sounds on the left lung to diminished breath sounds throughout all lung davidson bilaterally. Currently at 100% on 10 L nonrebreather. Patient states that he is currently comfortable, in no acute distress. Repeat 2V chest x-ray. Continue on 10 L nonrebreather. Discussed with respiratory therapist and RN.
--- NOTE | 2018-10-06 04:39 | XR ---
EXAM DATE: 10/06/2018 4:32 AM EST AGE/SEX: 63 years / Male INDICATIONS: . Short of breath. CLINICAL DATA: This is the patient's subsequent encounter. Patient reports that signs and symptoms h ave been present for 4 - 6 days and indicates a pain score of 0/10. MEDICAL/SURGICAL HISTORY: . Chronic obstructive pulmonary disease. Hypertension. . Inguinal he rnia repair. COMPARISON: [facility] – [place], CHEST 1V SINGLE AP, 10/04/2018. . FINDINGS: Large lateral left pleural-based density is unchanged. Consolidation in the left base and coarse inte rstitial infiltrate in the contralateral right base also stable. Possible developing lateral pleural- based density in the right lung base. Severe emphysematous change with large apical blebs and bulla. Visualized cardiac contours are unchanged. CONCLUSION: Possible developing pleural-based process in the lateral right lower lung. Otherwise grossly stable. Electronically signed by: Keanu Boo MD Board Certified Radiologist 10/06/2018 4:37 AM EST
[2018-10-06] MEDS: MethylPREDNISolone Sod Succinate Inj 40 MG/ML Vial IV.PUSH SCH ×4 (04:57→21:00)
[2018-10-06] MEDS: Piperacil/Tazo 4.5 GM Premix 4.5 GM/100 ML BAG IV.SIG SCH ×4 (04:57→20:59)
[2018-10-06] MEDS: Sod Chloride 0.9% Inj 1,000 ML IV.CONT SCH (04:58)
--- NOTE | 2018-10-06 08:08 | P.DIET ---
Nutritional Evaluation Type of nutrition evaluation: initial Nutrition consult regarding: Diet Evaluation Nutrition screening: Weight Loss > 10 lbs Objective - Diagnosis pneumonia, pleural effusion, COPD - Objective Body Mass Index: 24.5 Auberry body weight: 86 kg (190lbs) % IBW: 95 Body Weight Used for Calculations: Actual (82kg) Energy Needs - Lower Range (kCal/kg): 28 Energy Needs - Upper Range (kCal/kg): 32 Lower Limit kCal/kg (kCals): 2,296 Upper Limit kCal/kg (kCals): 2,624 Lower Limit Protein Factor (Grams per Kg): 1.0 Upper Limit Protein Factor (Grams per Kg): 1.2 Lower Protein Needs (Protein): 82 Upper Protein Needs (Protein): 98 Dietitian Reviewed in Medical Record: Current diet, Curent medications, Intake & Output, Labs, Medical history Diet Order: Regular Objective Comments: PMH; severe COPD, schizophrenia Labs; Na 133, BUN 6, Cr 0.44, Glucose 165, 146 Medications; solumedrol, lactulose Assessment Assessment: Weight loss screen; Pt presents to ED with SOB, fever, and cough and is currently at nutritional risk r/t recent unplanned weight loss. Pt with ongoing severe COPD with poor prognosis per MD note. He is currently ordered for regular diet with good PO intake not yet established. Will send pt Ensure supplement to support PO intake and minimize further weight loss as his energy needs are increased at this time. Each can of Ensure will provide 250kcal and 9g protein. Labs and medications reviewed. Will continue to monitor PO intake, supplement acceptance and clinical course. Recommendations: 1. Ensure supplement TID 2. Encourage PO intake Dietitian to Monitor: Lab values, Supplement acceptance, Intake & Output, Diet tolerance, PO Intake, Medical course
--- NOTE | 2018-10-06 08:44 | P.PNPL ---
Subjective Interval history: Patient is on partial rebreather, states he is breathing better. afebrile. Physical Exam Vital signs: Vital Signs 10/05/18 09:14 10/05/18 09:50 10/05/18 09:51 Temperature Pulse Rate 98 H 110 H Respiratory Rate 22 24 Blood Pressure 143/87 H Pulse Oximetry 100 99 10/05/18 11:30 10/05/18 12:00 10/05/18 13:36 Temperature 98.5 F Pulse Rate 99 H 112 H Respiratory Rate 26 H 20 Blood Pressure 180/104 H 154/86 H Pulse Oximetry 99 10/05/18 16:00 10/05/18 17:06 10/05/18 20:00 Temperature 98.8 F 97.0 F L Pulse Rate 102 H 105 H 91 H Respiratory Rate 24 30 H 18 Blood Pressure 150/90 H 147/78 H Pulse Oximetry 99 100 10/05/18 20:05 10/05/18 23:53 10/06/18 00:00 Temperature 97.3 F L Pulse Rate 102 H 97 H 101 H Respiratory Rate 25 H 22 Blood Pressure 147/78 H Pulse Oximetry 98 95 100 10/06/18 03:16 10/06/18 04:00 10/06/18 07:00 Temperature Pulse Rate 102 H 103 H 95 H Respiratory Rate 21 22 Blood Pressure Pulse Oximetry 100 100 Intake & Output 10/05/18 10/06/18 10/06/18 18:59 06:59 18:59 Intake Total 3120 / 3120 2540 / 2540 Output Total 1800 / 1800 3225 / 3225 Balance 1320 / 1320 -685 / -685 Weight 81.8 kg Intake: IV 2300 / 2300 1100 / 1100 NS Inj 1,000 ML @ 125 mls/hr IV 2000 / 2000 1000 / 1000 .CONT .Q8H [facility] Rx#:[id number] Zosyn 4.5 GM Premix 4.5 gm In 300 / 300 100 / 100 100 ml @ 200 mls/hr IV.SIG Q6H [facility] Rx#:[id number] Oral 820 / 820 1440 / 1440 Output: Urine 1800 / 1800 3225 / 3225 Other: # Incontinent Voids 1 Date of Last Bowel Movement 10/05/18 10/05/18 - Constitutional no acute distress, mild distress - Routine HEENT Exam Head: Present: normocephalic, atraumatic Eye: Present: EOMI, PERRL, normal accommodation, conjunctivae pink ENT: Present: mucous membranes moist - Routine Neck Exam Present: supple, full ROM, trachea midline - Routine Respiratory Exam Present: CTA bilaterally - Routine Cardiovascular Exam Present: RRR, S1, S2 - Routine Abdominal Exam Present: soft, normoactive bowel sounds - Routine Extremities Exam Present: full ROM, pulses intact - Routine Skin Exam Present: intact, dry - Routine Neurological Exam Present: alert, oriented X3, CN II-XII intact Assessment and Plan - Plan 1. Acute hypoxemic and hypercapnic Respiratory insufficiency. 2. COPD exacerbation. 3. Severe bullous lung disease. 4. Loculated left pleural effusion with likely chronically consolidated lung. 5. Right lower lobe lung nodule 9 mm in size. 6. History of tobacco use. 7. Hypertension. 8. History of schizophrenia. Plan Continue to wean down oxygen as tolerated, maintain sats above 92%. Bronchodilators- DuoNeb, Symbicort and Spiriva. Continue with Solu-Medrol 60 mg IV every 6 hours. BiPAP p.r.n. for respiratory distress. Obtain a copy of recent PFT( done outpatient) Seen by CTS- Dr. Rodriguez: Patient may benefit from lung volume reduction surgery but would be a high-risk procedure. Recommended to transfer to a lung transplant center for evaluation . Abx-On Zosyn. legionella urinary antigen, nasal washing screening are all negative. Follow up on sputum cx US left lung: Small pleural effusion inadequate for thoracentesis. D/c IVF and monitor for signs of fluid overload. Continue treatment plan.
[2018-10-06] MEDS: Finasteride 5 MG Tablet PO SCH (08:56)
[2018-10-06] MEDS: LORazepam 1 MG Tablet PO SCH ×2 (08:56→21:00)
[2018-10-06] MEDS: Benztropine 2 MG Tablet PO SCH ×2 (08:57→21:00)
[2018-10-06] MEDS: dilTIAZem CD 240 MG Capsule PO SCH (08:57)
[2018-10-06] MEDS: Tiotropium Bromide 18 MCG/ACT Inhaler INH SCH (08:58)
--- NOTE | 2018-10-06 09:13 | P.PNFP ---
Subjective Interval history: Patient seen and examined at bedside. Overnight recreation professor residents were paged by nurse due to patient having increased work of breathing (see addendum note for further details). When pt was examined he stated he felt fine, at his baseline and comfortable on partial rebreather. This morning patient reports he is doing ok, has no complaints. Denies cp or sob. He was afebrile overnight and continues to be on partial rebreather at 10L with O2 sat at 100%. Spoke to sister at bedside early afternoon and she would like patient to be transferred to [place] at [facility] (tel: [phone]) for any possible surgical procedure. CT surgery saw patient yesterday and recommended pt be transferred to a transplant center to explore further treatment options. One of the options is lung reduction surgery or percutaneous drainage of the loculated left pleural effusion but he is a very high risk surgical candidate. Sister understands risk and is interested in surgical procedure however would like any surgical intervention to be done at the [place] in [facility] where the center has all his medical records. Spoke with case management and they will try to coordinate transfer for today or tomorrow. <Tangela Quintero - 10/06/18 14:10> Results - Labs Result diagrams: 10/06/18 06:44 10/06/18 06:44 <Quynh Gudino - 10/06/18 21:12> Abnormal lab results 10/06/18 10/06/18 Range/Units 06:44 06:44 WBC 26.0 H (4.0-11.0) th/mm3 RBC 3.83 L (4.50-5.90) mil/mm3 Hgb 11.4 L (13.0-17.0) gm/dL Hct 34.5 L (39.0-51.0) % Plt Count 583 H (150-450) th/mm3 Neut % (Auto) 94.4 H (16.0-70.0) % Lymph % (Auto) 1.5 L (9.0-44.0) % Neut # (Auto) 24.6 H (1.8-7.7) th/mm3 Lymph # (Auto) 0.4 L (1.0-4.8) th/mm3 Kay # (Auto) 1.0 H (0.0-0.9) th/mm3 Seg Neuts % (Manual) 92 H (16-70) % Lymphocytes % (Manual) 1 L (9-44) % Abs Neuts (Manual) 24.7 H (1.8-7.7) th/mm3 Toxic Granulation 1+ H (None) Platelet Estimate High H (Normal) Sodium 133 L (136-145) meq/L Potassium 3.2 L D (3.5-5.1) meq/L Chloride 93 L (98-107) meq/L Short CBC 10/06/18 Range/Units 06:44 WBC 26.0 H (4.0-11.0) th/mm3 Hgb 11.4 L (13.0-17.0) gm/dL Hct 34.5 L (39.0-51.0) % Plt Count 583 H (150-450) th/mm3 BMP 10/06/18 06:44 Sodium 133 L Potassium 3.2 L D Chloride 93 L Carbon Dioxide 31.7 BUN 8 Creatinine 0.60 Calcium 8.6 <Quynh Gudino - 10/06/18 21:12> Abnormal lab results 10/05/18 Range/Units 08:23 Sodium 133 L (136-145) meq/L Chloride 93 L (98-107) meq/L Carbon Dioxide 34.8 H (21.0-32.0) meq/L BUN 6 L (7-18) mg/dL Creatinine 0.44 L (0.60-1.30) mg/dL Random Glucose 146 H (74-106) mg/dL Albumin 2.2 L (3.4-5.0) g/dL [facility] 10/05/18 08:23 Sodium 133 L Potassium 4.0 D Chloride 93 L Carbon Dioxide 34.8 H BUN 6 L Creatinine 0.44 L Calcium 8.7 Liver Function 10/05/18 Range/Units 08:23 Total Bilirubin 0.2 (0.2-1.0) mg/dL AST 15 (15-37) U/L ALT 31 (12-78) U/L Alkaline Phosphatase 86 (45-117) U/L Albumin 2.2 L (3.4-5.0) g/dL <Tangela Quintero - 10/06/18 09:13> - Imaging Impressions Chest X-Ray 10/06/18 00:00 CONCLUSION: Possible developing pleural-based process in the lateral right lower lung. Otherwise grossly stable. <Quynh Gudino - 10/06/18 21:12> Impressions Chest Ultrasound 10/05/18 00:00 CONCLUSION: 1. Small left pleural effusion. Inadequate for thoracentesis. Chest X-Ray 10/06/18 00:00 CONCLUSION: Possible developing pleural-based process in the lateral right lower lung. Otherwise grossly stable. <Tangela Quintero D - 10/06/18 09:13> Physical Exam Vital signs: Vital Signs 10/05/18 23:53 10/06/18 00:00 10/06/18 03:16 Temperature 97.3 F L Pulse Rate 97 H 101 H 102 H Respiratory Rate 25 H 22 21 Blood Pressure 147/78 H Pulse Oximetry 95 100 100 10/06/18 04:00 10/06/18 07:00 10/06/18 08:00 Temperature 98.0 F Pulse Rate 103 H 95 H 110 H Respiratory Rate 22 24 Blood Pressure 172/97 H Pulse Oximetry 100 100 10/06/18 09:00 10/06/18 09:20 10/06/18 10:00 Temperature Pulse Rate 108 H 104 H 106 H Respiratory Rate 26 H Blood Pressure Pulse Oximetry 99 10/06/18 11:00 10/06/18 12:00 10/06/18 12:40 Temperature 98.2 F Pulse Rate 97 H 110 H 108 H Respiratory Rate 32 H 36 H Blood Pressure 147/87 H Pulse Oximetry 97 10/06/18 13:00 10/06/18 14:00 10/06/18 15:00 Temperature Pulse Rate 104 H 96 H 99 H Respiratory Rate Blood Pressure Pulse Oximetry 10/06/18 16:00 10/06/18 16:31 10/06/18 17:00 Temperature 97.9 F Pulse Rate 97 H 94 H 78 Respiratory Rate 30 H 22 Blood Pressure 142/77 H Pulse Oximetry 97 10/06/18 18:00 10/06/18 19:22 10/06/18 20:00 Temperature Pulse Rate 78 89 86 Respiratory Rate 20 18 Blood Pressure 120/74 Pulse Oximetry 95 95 Intake & Output 10/06/18 10/06/18 10/07/18 06:59 18:59 06:59 Intake Total 2640 / 2640 2330 / 2330 Output Total 3225 / 3225 1550 / 1550 Balance -585 / -585 780 / 780 Weight 81.8 kg Intake: IV 1200 / 1200 410 / 410 NS Inj 1,000 ML @ 125 mls/hr IV 1000 / 1000 210 / 210 .CONT .Q8H [facility] Rx#:[id number] Zosyn 4.5 GM Premix 4.5 gm In 200 / 200 200 / 200 100 ml @ 200 mls/hr IV.SIG Q6H [facility] Rx#:[id number] Oral 1440 / 1440 1920 / 1920 Output: Urine 3225 / 3225 1550 / 1550 Other: Date of Last Bowel Movement 10/05/18 10/05/18 <VeestherQuynh - 10/06/18 21:12> Vital Signs 10/05/18 09:14 10/05/18 09:50 10/05/18 09:51 Temperature Pulse Rate 98 H 110 H Respiratory Rate 22 24 Blood Pressure 143/87 H Pulse Oximetry 100 99 10/05/18 11:30 10/05/18 12:00 10/05/18 13:36 Temperature 98.5 F Pulse Rate 99 H 112 H Respiratory Rate 26 H 20 Blood Pressure 180/104 H 154/86 H Pulse Oximetry 99 10/05/18 16:00 10/05/18 17:06 10/05/18 20:00 Temperature 98.8 F 97.0 F L Pulse Rate 102 H 105 H 91 H Respiratory Rate 24 30 H 18 Blood Pressure 150/90 H 147/78 H Pulse Oximetry 99 100 10/05/18 20:05 10/05/18 23:53 10/06/18 00:00 Temperature 97.3 F L Pulse Rate 102 H 97 H 101 H Respiratory Rate 25 H 22 Blood Pressure 147/78 H Pulse Oximetry 98 95 100 10/06/18 03:16 10/06/18 04:00 10/06/18 07:00 Temperature Pulse Rate 102 H 103 H 95 H Respiratory Rate 21 22 Blood Pressure Pulse Oximetry 100 100 Intake & Output 10/05/18 10/06/18 10/06/18 18:59 06:59 18:59 Intake Total 3120 / 3120 2640 / 2640 Output Total 1800 / 1800 3225 / 3225 Balance 1320 / 1320 -585 / -585 Weight 81.8 kg Intake: IV 2300 / 2300 1200 / 1200 NS Inj 1,000 ML @ 125 mls/hr IV 2000 / 2000 1000 / 1000 .CONT .Q8H [facility] Rx#:[id number] Zosyn 4.5 GM Premix 4.5 gm In 300 / 300 200 / 200 100 ml @ 200 mls/hr IV.SIG Q6H [facility] Rx#:[id number] Oral 820 / 820 1440 / 1440 Output: Urine 1800 / 1800 3225 / 3225 Other: # Incontinent Voids 1 Date of Last Bowel Movement 10/05/18 10/05/18 <Dwayne Tangela Clemens Elena - 10/06/18 09:13> Narrative: GENERAL: Elderly appearing gentleman siting up in bed with partial rebreather at 10 L and O2 sat at 99%. In no acute distress. CARDIOVASCULAR: Regular rate and rhythm without obvious murmurs, gallops, or rubs. RESPIRATORY: Breath sounds decreased in mid and lower left lobe. GASTROINTESTINAL: Abdomen soft, non-tender, nondistended. BS WNL. MUSCULOSKELETAL: No cyanosis or edema. Strength grossly WNL. NEURO/PSYCH: Cranial nerves II through XII grossly intact with no facial drooping. Moving all extremities. <Marvinliang Tangela Clemens Elena - 10/06/18 14:10> Assessment and Plan - Assessment (1) COPD (chronic obstructive pulmonary disease) Code(s): J44.9 - Chronic obstructive pulmonary disease, unspecified Status: Acute (2) Schizophrenia Code(s): F20.9 - Schizophrenia, unspecified Status: Acute (3) Pneumonia Code(s): J18.9 - Pneumonia, unspecified organism Status: Acute (4) Pleural effusion on left Code(s): J90 - Pleural effusion, not elsewhere classified Status: Acute (5) HTN (hypertension) Code(s): I10 - Essential (primary) hypertension Status: Acute (6) Lung nodule Code(s): R91.1 - Solitary pulmonary nodule Status: Acute (7) BPH (benign prostatic hyperplasia) Code(s): N40.0 - Benign prostatic hyperplasia without lower urinary tract symptoms Status: Acute (8) Nutrition, metabolism, and development symptoms Code(s): R63.8 - Other symptoms and signs concerning food and fluid intake Status: Acute <Quynh Gudino - 10/06/18 21:12> (1) COPD (chronic obstructive pulmonary disease) Code(s): J44.9 - Chronic obstructive pulmonary disease, unspecified Status: Acute Plan: This a 63 yoM with a history of COPD and schizophrenia who presented to the ED with c/o one month history of increased oxygen demand and cough. Patient found to have left lower lobe consolidation as well as left lower lobe pleural effusion. Patient received 4.5 g of Zosyn, 500 mg of azithromycin and 1 L of normal saline bolus in the ED. On admission: -DDx includes COPD exacerbation, pneumonia, pleural effusion secondary to malignancy. -Pt. has a pulmonary hx sig. for smoking and multiple URIs in the past. Number COPD exacerbations unknown. -Patient normally on 6 L home O2 now requiring 10 L. -WBC 18.7, neutrophil percent 88.9 supporting infectious etiology. -EKG unremarkable with exception of sinus tachycardia with possible left ventricular hypertrophy. -BNP WNL. -CXR showed hyperinflation, mild flattening of diaphragm and elevated clavicles c/w COPD. -Chest CT on 10/04 showed extensive COPD with huge blebs and very low lung parenchyma remaining. Loculated left pleural effusion with adjacent parenchymal process which may be chronically consolidated lung, however focal mass particular left lobe is difficult to exclude. Nonspecific right lower lung nodule. Right adrenal mass most likely an adenoma. Plan: -Treat with Supplemental O2 -Encourage pt. to get OOB and ambulate. -Duonebs q4 hrs. jeff -Albuterol 2.5 mg nebulized Q2 hrs schedule -Solu-Medrol 60 mg IV every 6hr -Protonix 40 mg PO daily for GI protection and decr. chances of aspiration pneumonia. -Zosyn 4.5 g IV every 6hr for possible pneumonia -Mucinex 600 mg tab PO BID PRN congestion. -Incentive spirometer - home budesonide and Spiriva -Follow-up with pulmonology consult Continue to wean down oxygen as tolerated to maintain O2 saturations above 92 % BiPAP as needed for respiratory distress Discontinue IV fluids Continue with Zosyn IV Thoracentesis unable to performed due to inadequate amount of pleural fluid on ultrasound CTS Dr. Smith consulted for possible lung reduction procedure. Patient evaluated by Dr. Smith and noted that he could possibly benefit from lung reduction procedure however he is a very high risk candidate and recommends evaluation and transfer at a lung transplant center for further options. Discussed this with sister at bedside and she is interested in surgical procedure however she will like this to be done at the [place] in [facility]. systems project manager consulted for possible transfer. (2) Schizophrenia Code(s): F20.9 - Schizophrenia, unspecified Status: Acute Plan: This patient has a history of schizophrenia. On admission patient appears to have fluctuating levels of cognition as his answers to questions fluctuate. Per caregivers patient is nonaggressive not combative. -Admit patient to room near nurses station -No QT prolongation noted on EKG -Continue home haloperidol -Continue home benztropine -Continue home Ativan 1 mg twice daily (3) Pneumonia Code(s): J18.9 - Pneumonia, unspecified organism Status: Acute Plan: This patient presents with an acute COPD exacerbation as well as consolidation versus effusion on left lower lobe. Please see plan above for COPD exacerbation. -White blood cell count elevated -CT showed pleural effusion -At this time pneumonia cannot be ruled out, continue with treatment as stated above (4) Pleural effusion on left Code(s): J90 - Pleural effusion, not elsewhere classified Status: Acute Plan: Patient presents with a left-sided pleural effusion found on chest x-ray. Patient was scheduled to receive CT scan at the [place] due to a possible lung mass. This patient is a former smoker. -CT scan of the chest with contrast ordered -Interventional radiology consult for thoracentesis ordered, unable to perform due to insufficient pleural fluid on ultrasound. (5) HTN (hypertension) Code(s): I10 - Essential (primary) hypertension Status: Acute Plan: Patient suffers from hypertension. -Continue patient's diltiazem -Continue patient's metoprolol -Vasotec on board for blood pressures higher than 180/110 (6) Lung nodule Code(s): R91.1 - Solitary pulmonary nodule Status: Acute Plan: Patient has lung nodule found on CT imaging of the chest. At this time a biopsy would not be appropriate. Patient to follow-up outpatient. (7) BPH (benign prostatic hyperplasia) Code(s): N40.0 - Benign prostatic hyperplasia without lower urinary tract symptoms Status: Acute Plan: Patient suffers from benign prostatic hyperplasia. -Continue finasteride -Continue alfuzosin (8) Nutrition, metabolism, and development symptoms Code(s): R63.8 - Other symptoms and signs concerning food and fluid intake Status: Acute Plan: Fluids: Not indicated at this time Electrolytes: Replete as needed Nutrition: Regular diet DVT prophylaxis: Subcu heparin 5000 units 3 times daily <Tangela Quintero - 10/06/18 13:51> - Attending Attestation Patient seen and examined this morning, discussed with Dr Sheffield. I agree with assessment and management as documented and discussed with me. Pt continues to require high amounts of oxygen supplementation, 10L. Received call from MD at [facility] in the late afternoon. They will discuss his case and call me back tomorrow regarding if he is accepted for transfer. <Quynh Gudino - 10/06/18 21:12> <Tangela Quintero - Last Filed: 10/06/18 13:51> (1) COPD (chronic obstructive pulmonary disease) Qualifiers: COPD type: emphysema Emphysema type: panlobular Qualified Code(s): J43.1 - Panlobular emphysema <Quynh Gudino - Last Filed: 10/06/18 21:12> (1) COPD (chronic obstructive pulmonary disease) Qualifiers: COPD type: emphysema Emphysema type: panlobular Qualified Code(s): J43.1 - Panlobular emphysema <Yohannes ClemensTangela D - Last Filed: 10/06/18 13:51> (1) COPD (chronic obstructive pulmonary disease) Qualifiers: COPD type: emphysema Emphysema type: panlobular Qualified Code(s): J43.1 - Panlobular emphysema <Quynh Gudino - Last Filed: 10/06/18 21:12> (1) COPD (chronic obstructive pulmonary disease) Qualifiers: COPD type: emphysema Emphysema type: panlobular Qualified Code(s): J43.1 - Panlobular emphysema
[2018-10-06 09:33] LABS: Baso # (Auto) 0.1 th/mm3 (0.0-0.2); Baso % (Auto) 0.4 % (0.0-2.0); Hematocrit 34.5 % (39.0-51.0); Hemoglobin 11.4 gm/dL (13.0-17.0); Lymph # (Auto) 0.4 th/mm3 (1.0-4.8); Lymph % (Auto) 1.5 % (9.0-44.0); Mean Corpuscular HGB Conc 33.2 % (32.0-36.0); Mean Corpuscular Hemoglobin 29.9 pg (27.0-34.0); Mean Corpuscular Volume 90.2 fL (80.0-100.0); Mean Platelet Volume 7.3 fL (7.0-11.0); Mono % (Auto) 3.7 % (0.0-8.0); Neut # (Auto) 24.6 th/mm3 (1.8-7.7); Neut % (Auto) 94.4 % (16.0-70.0); Platelet Count 583 th/mm3 (150-450); Red Blood Count 3.83 mil/mm3 (4.50-5.90); Red Cell Distribution Width 14.2 % (11.6-17.2)
[2018-10-06 10:08] LABS: Anion Gap 8 meq/L (5-15); Blood Urea Nitrogen 8 mg/dL (7-18); Calcium 8.6 mg/dL (8.5-10.1); Carbon Dioxide 31.7 meq/L (21.0-32.0); Chloride 93 meq/L (98-107); Glomerular Filtration Rate Greater Than 89 mL/min (>89); Glucose,Random 104 mg/dL (74-106); Potassium 3.2 meq/L (3.5-5.1); Sodium 133 meq/L (136-145)
[2018-10-06 10:54] LABS: Lymphocytes 1 % (9-44); Monocytes 4 % (0-8)
[2018-10-06 10:56] LABS: Platelet Morphology Normal (Normal); Toxic Granulation 1+
[2018-10-06] MEDS: Haloperidol 1 MG Tablet PO SCH (20:59)
[2018-10-07] MEDS: MethylPREDNISolone Sod Succinate Inj 40 MG/ML Vial IV.PUSH SCH ×5 (04:55→20:56)
[2018-10-07] MEDS: Piperacil/Tazo 4.5 GM Premix 4.5 GM/100 ML BAG IV.SIG SCH ×4 (04:57→20:58)
[2018-10-07] MEDS: Heparin - SQ 10,000 UNITS/ML Vial SQ SCH ×3 (06:54→23:43)
--- NOTE | 2018-10-07 07:00 | P.PNFP ---
Subjective Interval history: In significant respiratory distress on non-rebreather. Denies other complaints. He is unable to speak in full sentences and is retracting significantly. He does not fully understand his medical care and I believe is not currently able to make medical decisions for himself. <Wilbert Aguila Wei - 10/07/18 12:09> Results - Labs Result diagrams: 10/07/18 10:49 10/07/18 10:49 <Quynh Gudino - 10/07/18 21:00> Abnormal lab results 10/07/18 10/07/18 10/07/18 Range/Units 08:54 09:07 10:49 WBC 18.4 H (4.0-11.0) th/mm3 RBC 3.98 L (4.50-5.90) mil/mm3 Hgb 11.5 L (13.0-17.0) gm/dL Hct 36.1 L (39.0-51.0) % Plt Count 552 H (150-450) th/mm3 Neut % (Auto) 93.9 H (16.0-70.0) % Lymph % (Auto) 1.5 L (9.0-44.0) % Neut # (Auto) 17.3 H (1.8-7.7) th/mm3 Lymph # (Auto) 0.3 L (1.0-4.8) th/mm3 Seg Neuts % (Manual) 81 H (16-70) % Band Neuts % (Manual) 7 H (0-6) % Lymphocytes % (Manual) 3 L (9-44) % Metamyelocytes % (Man) 4 H (0-1) % Myelocytes % (Man) 1 H (0-0) % Abs Neuts (Manual) 17.1 H (1.8-7.7) th/mm3 Platelet Estimate High H (Normal) ABG pH 7.27 L* (7.380-7.420) ABG pCO2 85 H* (38-42) mmHg ABG pO2 164 H (61-120) mmHg ABG HCO3 38 H (22-26) mmol/L ABG Base Excess 11.1 H (-2-2) mmol/L Hemoglobin 11.1 L (12.0-16.0) G/DL Sodium (136-145) meq/L Chloride (98-107) meq/L Carbon Dioxide (21.0-32.0) meq/L Creatinine (0.60-1.30) mg/dL POC Glucose 156 H (68-110) mg/dl Random Glucose (74-106) mg/dL Albumin (3.4-5.0) g/dL 10/07/18 Range/Units 10:49 WBC (4.0-11.0) th/mm3 RBC (4.50-5.90) mil/mm3 Hgb (13.0-17.0) gm/dL Hct (39.0-51.0) % Plt Count (150-450) th/mm3 Neut % (Auto) (16.0-70.0) % Lymph % (Auto) (9.0-44.0) % Neut # (Auto) (1.8-7.7) th/mm3 Lymph # (Auto) (1.0-4.8) th/mm3 Seg Neuts % (Manual) (16-70) % Band Neuts % (Manual) (0-6) % Lymphocytes % (Manual) (9-44) % Metamyelocytes % (Man) (0-1) % Myelocytes % (Man) (0-0) % Abs Neuts (Manual) (1.8-7.7) th/mm3 Platelet Estimate (Normal) ABG pH (7.380-7.420) ABG pCO2 (38-42) mmHg ABG pO2 (61-120) mmHg ABG HCO3 (22-26) mmol/L ABG Base Excess (-2-2) mmol/L Hemoglobin (12.0-16.0) G/DL Sodium 133 L (136-145) meq/L Chloride 90 L (98-107) meq/L Carbon Dioxide 37.6 H (21.0-32.0) meq/L Creatinine 0.59 L (0.60-1.30) mg/dL POC Glucose (68-110) mg/dl Random Glucose 146 H (74-106) mg/dL Albumin 2.6 L (3.4-5.0) g/dL Short CBC 10/07/18 Range/Units 10:49 WBC 18.4 H (4.0-11.0) th/mm3 Hgb 11.5 L (13.0-17.0) gm/dL Hct 36.1 L (39.0-51.0) % Plt Count 552 H (150-450) th/mm3 BMP 10/07/18 10:49 Sodium 133 L Potassium 3.8 Chloride 90 L Carbon Dioxide 37.6 H BUN 11 Creatinine 0.59 L Calcium 8.9 Liver Function 10/07/18 Range/Units 10:49 Total Bilirubin 0.2 (0.2-1.0) mg/dL AST 17 (15-37) U/L ALT 36 (12-78) U/L Alkaline Phosphatase 80 (45-117) U/L Albumin 2.6 L (3.4-5.0) g/dL <Quynh Gudino - 10/07/18 21:00> Abnormal lab results 10/06/18 10/06/18 Range/Units 06:44 06:44 WBC 26.0 H (4.0-11.0) th/mm3 RBC 3.83 L (4.50-5.90) mil/mm3 Hgb 11.4 L (13.0-17.0) gm/dL Hct 34.5 L (39.0-51.0) % Plt Count 583 H (150-450) th/mm3 Neut % (Auto) 94.4 H (16.0-70.0) % Lymph % (Auto) 1.5 L (9.0-44.0) % Neut # (Auto) 24.6 H (1.8-7.7) th/mm3 Lymph # (Auto) 0.4 L (1.0-4.8) th/mm3 Yates # (Auto) 1.0 H (0.0-0.9) th/mm3 Seg Neuts % (Manual) 92 H (16-70) % Lymphocytes % (Manual) 1 L (9-44) % Abs Neuts (Manual) 24.7 H (1.8-7.7) th/mm3 Toxic Granulation 1+ H (None) Platelet Estimate High H (Normal) Sodium 133 L (136-145) meq/L Potassium 3.2 L D (3.5-5.1) meq/L Chloride 93 L (98-107) meq/L Short CBC 10/06/18 Range/Units 06:44 WBC 26.0 H (4.0-11.0) th/mm3 Hgb 11.4 L (13.0-17.0) gm/dL Hct 34.5 L (39.0-51.0) % Plt Count 583 H (150-450) th/mm3 BMP 10/06/18 06:44 Sodium 133 L Potassium 3.2 L D Chloride 93 L Carbon Dioxide 31.7 BUN 8 Creatinine 0.60 Calcium 8.6 <Wilbert WeiJuan AlbertoAguila J - 10/07/18 07:00> - Imaging Impressions Chest X-Ray 10/07/18 09:19 CONCLUSION: 1. Resolved right pleural effusion. 2. Moderate-sized laterally loculated left pleural effusion slightly smaller. 3. Bibasilar atelectasis again noted. 4. Severe centrilobular bullous emphysema. <Quynh Gudino - 10/07/18 21:00> Physical Exam Vital signs: Vital Signs 10/06/18 21:00 10/06/18 21:29 10/06/18 22:00 Pulse Rate 82 82 Respiratory Rate Blood Pressure Pulse Oximetry 96 10/06/18 23:00 10/06/18 23:52 10/07/18 00:00 Pulse Rate 86 90 75 Respiratory Rate 24 Blood Pressure 123/63 Pulse Oximetry 100 10/07/18 00:08 10/07/18 01:00 10/07/18 02:00 Pulse Rate 91 H 70 68 Respiratory Rate 20 Blood Pressure Pulse Oximetry 10/07/18 03:00 10/07/18 04:00 10/07/18 04:55 Pulse Rate 86 88 84 Respiratory Rate 22 20 Blood Pressure 158/97 H Pulse Oximetry 99 10/07/18 05:00 10/07/18 06:00 10/07/18 08:45 Pulse Rate 88 84 Respiratory Rate Blood Pressure Pulse Oximetry 95 10/07/18 08:46 10/07/18 09:05 10/07/18 11:32 Pulse Rate 109 H 109 H Respiratory Rate 32 H 20 Blood Pressure Pulse Oximetry 99 10/07/18 12:00 10/07/18 14:17 10/07/18 14:31 Pulse Rate 105 H Respiratory Rate 30 H Blood Pressure 166/81 H Pulse Oximetry 86 L 93 L 95 10/07/18 15:36 10/07/18 16:00 10/07/18 16:33 Pulse Rate 100 H 99 H Respiratory Rate 25 H Blood Pressure 152/77 H Pulse Oximetry 39 L 95 Intake & Output 10/07/18 10/07/18 10/08/18 06:59 18:59 06:59 Intake Total 1160 / 1160 1015 / 1015 Output Total 1500 / 1500 1050 / 1050 Balance -340 / -340 -35 / -35 Weight 81.4 kg Intake: IV 200 / 200 715 / 715 Azithromycin Inj 500 MG In NS 0 / 0 Inj 250 ML @ 250 mls/hr IV.SIG Q24H ERINN Rx#:[id number] Zosyn 4.5 GM Premix 4.5 gm In 200 / 200 200 / 200 100 ml @ 200 mls/hr IV.SIG Q6H ERINN Rx#:[id number] Vancomycin Inj 1,500 MG In NS 515 / 515 Inj 500 ML @ 250 mls/hr IV.SIG ONCE ONE Rx#:[id number] Oral 960 / 960 300 / 300 Output: Urine 1500 / 1500 1050 / 1050 Other: # Incontinent Voids 1 Date of Last Bowel Movement 10/05/18 10/05/18 <Quynh Gudino - 10/07/18 21:00> Vital Signs 10/06/18 07:00 10/06/18 08:00 10/06/18 09:00 Temperature 98.0 F Pulse Rate 95 H 110 H 108 H Respiratory Rate 24 Blood Pressure 172/97 H Pulse Oximetry 100 10/06/18 09:20 10/06/18 10:00 10/06/18 11:00 Temperature Pulse Rate 104 H 106 H 97 H Respiratory Rate 26 H Blood Pressure Pulse Oximetry 99 10/06/18 12:00 10/06/18 12:40 10/06/18 13:00 Temperature 98.2 F Pulse Rate 110 H 108 H 104 H Respiratory Rate 32 H 36 H Blood Pressure 147/87 H Pulse Oximetry 97 10/06/18 14:00 10/06/18 15:00 10/06/18 16:00 Temperature 97.9 F Pulse Rate 96 H 99 H 97 H Respiratory Rate 30 H Blood Pressure 142/77 H Pulse Oximetry 97 10/06/18 16:31 10/06/18 17:00 10/06/18 18:00 Temperature Pulse Rate 94 H 78 78 Respiratory Rate 22 Blood Pressure Pulse Oximetry 10/06/18 19:22 10/06/18 20:00 10/06/18 21:29 Temperature Pulse Rate 89 86 Respiratory Rate 20 18 Blood Pressure 120/74 Pulse Oximetry 95 95 96 10/06/18 23:52 10/07/18 00:08 10/07/18 04:55 Temperature Pulse Rate 90 91 H 84 Respiratory Rate 24 20 20 Blood Pressure 123/63 Pulse Oximetry 100 Intake & Output 10/06/18 10/06/18 10/07/18 06:59 18:59 06:59 Intake Total 2640 / 2640 2330 / 2330 100 / 100 Output Total 3225 / 3225 1550 / 1550 Balance -585 / -585 780 / 780 100 / 100 Weight 81.8 kg 81.4 kg Intake: IV 1200 / 1200 410 / 410 100 / 100 NS Inj 1,000 ML @ 125 mls/hr IV 1000 / 1000 210 / 210 .CONT .Q8H ERINN Rx#:[id number] Zosyn 4.5 GM Premix 4.5 gm In 200 / 200 200 / 200 100 / 100 100 ml @ 200 mls/hr IV.SIG Q6H ERINN Rx#:[id number] Oral 1440 / 1440 1920 / 1920 Output: Urine 3225 / 3225 1550 / 1550 Other: Date of Last Bowel Movement 10/05/18 10/05/18 <Aguila Gardner - 10/07/18 07:00> Narrative: General: Significant respiratory distress Eyes: EOMI, anicteric scleral, no conjunctival injection ENT: Atraumatic, MMM Neck: Trachea midline, no masses or lymphadenopathy Respiratory: Tachypneic, significant respiratory distress and retractions, diffuse wheezes, poor air entry bilaterally, frequent cough and sputum production Cardiovascular: Tachycardic with regular rhythm, 1+ pedal pulses Abdomen: Bowel sounds present. Soft, non-tender <Aguila Gardner - 10/07/18 12:08> Assessment and Plan - Assessment (1) COPD (chronic obstructive pulmonary disease) Code(s): J44.9 - Chronic obstructive pulmonary disease, unspecified Status: Acute (2) Schizophrenia Code(s): F20.9 - Schizophrenia, unspecified Status: Acute (3) Pneumonia Code(s): J18.9 - Pneumonia, unspecified organism Status: Acute (4) Pleural effusion on left Code(s): J90 - Pleural effusion, not elsewhere classified Status: Acute (5) HTN (hypertension) Code(s): I10 - Essential (primary) hypertension Status: Acute (6) Lung nodule Code(s): R91.1 - Solitary pulmonary nodule Status: Acute (7) BPH (benign prostatic hyperplasia) Code(s): N40.0 - Benign prostatic hyperplasia without lower urinary tract symptoms Status: Acute (8) Nutrition, metabolism, and development symptoms Code(s): R63.8 - Other symptoms and signs concerning food and fluid intake Status: Acute <TereseQuynh - 10/07/18 21:00> (1) COPD (chronic obstructive pulmonary disease) Code(s): J44.9 - Chronic obstructive pulmonary disease, unspecified Status: Acute Plan: (2) Schizophrenia Code(s): F20.9 - Schizophrenia, unspecified Status: Acute Plan: (3) Pneumonia Code(s): J18.9 - Pneumonia, unspecified organism Status: Acute Plan: (4) Pleural effusion on left Code(s): J90 - Pleural effusion, not elsewhere classified Status: Acute Plan: (5) HTN (hypertension) Code(s): I10 - Essential (primary) hypertension Status: Acute Plan: (6) Lung nodule Code(s): R91.1 - Solitary pulmonary nodule Status: Acute Plan: (7) BPH (benign prostatic hyperplasia) Code(s): N40.0 - Benign prostatic hyperplasia without lower urinary tract symptoms Status: Acute Plan: (8) Nutrition, metabolism, and development symptoms Code(s): R63.8 - Other symptoms and signs concerning food and fluid intake Status: Acute Plan: <Aguila Gardner - 10/07/18 12:09> - Assessment and Plan This a 63 yo M with a history of COPD and schizophrenia who presented to the ED with c/o one month history of increased oxygen demand and cough. Patient found to have left lower lobe consolidation as well as left lower lobe pleural effusion. Neuro/psych: History of schizophrenia, his functioning level of cognition and responses to questions. Caregivers note that he has not been aggressive in the past. -No QT prolongation noted on EKG -Continue home haloperidol -Continue home benztropine -Continue home Ativan 1 mg twice daily Pulmonary: He has severe bullous lung disease and COPD exacerbation including a loculated left pleural effusion which is likely chronically consolidated lung. In addition he has a right lower lobe lung nodule of 0.9 cm in size. -Chest CT on 10/04 showed extensive COPD with huge blebs and very low lung parenchyma remaining. Loculated left pleural effusion with adjacent parenchymal process which may be chronically consolidated lung, however focal mass particular left lobe is difficult to exclude. Nonspecific right lower lung nodule. Right adrenal mass most likely an adenoma. Pulmonology and critical care are following -Duonebs q4 hrs. scheduled and albuterol 2.5 mg nebulized Q2 hrs scheduled -Solu-Medrol 60 mg IV every 6hr -Protonix 40 mg PO daily for GI protection and to decrease chance of aspiration pneumonia. -Mucinex 600 mg tab PO BID PRN congestion -Continue home medication budesonide and Spiriva -Evaluated by CT surgery for possible lung reduction, Dr. Smith thinks he could benefit from this but is a very high risk surgical candidate. This option is still on the table family wants him transferred to the [place] in [facility] for any possible intervention. -Significant respiratory distress this morning on a non-rebreather he is saturating well but has respirator acidosis -May require intubation due to his respiratory decompensation Infectious disease: Pneumonia versus COPD exacerbation. Due to respiratory deterioration stat blood and sputum cultures repeated -Continue IV Zosyn -Add IV vancomycin Consult to infectious disease placed Follow blood and sputum cultures Hypertension: -Continue home medication diltiazem -Continue home medication metoprolol -Vasotec as needed for blood pressures higher than 180/110 Benign prostatic hyperplasia: -Continue finasteride -Continue alfuzosin Fluids: Adequate p.o. intake Electrolytes: monitor and replete as needed Nutrition: Regular diet GI prophylaxis: not indicated, will consider starting if he is intubated because it is unlikely he will be able to be weaned quickly VTE prophylaxis: Subcutaneous heparin Disposition: -Palliative care consult to the poor current and long term care administrator prognosis of his condition -Unsure of medical decision maker. I do not believe he currently has capacity. He lives with his sister who has been assisting us in making decisions thus far. He also has multiple other siblings, and we do not believe has designated a healthcare surrogate. We will coordinate with palliative care. -Potential transfer to [place] for surgical intervention, will attempt to coordinate with their ICU Patient was seen and examined with Dr. Banks and Dr. Gudino. Case was discussed with Dr. Quinn (critical care). <Aguila Gardner - 10/07/18 12:08> - Attending Attestation Patient seen, examined, and discussed this morning with resident team. I agree with assessment and management as documented and discussed with me. Pt with significant desaturation while receiving nebulizer treatment this morning, and transferred to ICU. Critical care consulted. Palliative care consulted. <Quynh Gudino - 10/07/18 21:00> <Aguila Gardner - Last Filed: 10/07/18 12:09> (1) COPD (chronic obstructive pulmonary disease) Qualifiers: COPD type: emphysema Emphysema type: panlobular Qualified Code(s): J43.1 - Panlobular emphysema <Quynh Gudino - Last Filed: 10/07/18 21:00> (1) COPD (chronic obstructive pulmonary disease) Qualifiers: COPD type: emphysema Emphysema type: panlobular Qualified Code(s): J43.1 - Panlobular emphysema <Aguila Gardner Filed: 10/07/18 12:09> (1) COPD (chronic obstructive pulmonary disease) Qualifiers: COPD type: emphysema Emphysema type: panlobular Qualified Code(s): J43.1 - Panlobular emphysema <Quynh Gudino - Last Filed: 10/07/18 21:00> (1) COPD (chronic obstructive pulmonary disease) Qualifiers: COPD type: emphysema Emphysema type: panlobular Qualified Code(s): J43.1 - Panlobular emphysema
[2018-10-07 09:18] LABS: ABG Base Excess 11.1 mmol/L (-2-2); ABG PCO2 85 mmHg (38-42); ABG PO2 164 mmHg (61-120)
--- NOTE | 2018-10-07 09:51 | XR ---
EXAM DATE: 10/07/2018 9:47 AM EST AGE/SEX: 63 years / Male INDICATIONS: Dyspnea. CLINICAL DATA: This is the patient's subsequent encounter. Patient reports that signs and symptoms h ave been present for 2 days and indicates a pain score of 4/10. MEDICAL/SURGICAL HISTORY: . Chronic obstructive pulmonary disease. Hypertension. Prostate hyper trophy. . Transurethral resection of prostate. Inguinal hernia bilateral [place] [facility] [place]&LAT[place]06/2018. [facility] [place]ST [place] CONTRAST, 10/04/2018. . FINDINGS: Mild bibasilar atelectasis. The previously seen small right pleural effusion has resolved. The latera lly loculated, moderate sized left pleural effusion is slightly smaller than yesterday. No pneumothor ax. Severe upper lobe predominant centrilobular emphysema. CONCLUSION: 1. Resolved right pleural effusion. 2. Moderate-sized laterally loculated left pleural effusion slightly smaller. 3. Bibasilar atelectasis again noted. 4. Severe centrilobular bullous emphysema. Electronically signed by: Keanu Clark MD Board Certified Radiologist 10/07/2018 9:50 AM EST
[2018-10-07] MEDS ORDERED: Vancomycin Consult Pharmacy OTHER PRN (09:54)
[2018-10-07] MEDS ORDERED: Propofol Inj 500 MG/50 ML Vial ONE (09:57)
[2018-10-07] MEDS: Budesonide-Formoterol 160/4.5 MCG 6 GM Inhaler INH SCH ×2 (10:30→20:58)
[2018-10-07] MEDS: Tiotropium Bromide 18 MCG/ACT Inhaler INH SCH (10:30)
[2018-10-07] MEDS: dilTIAZem CD 240 MG Capsule PO SCH (10:53)
[2018-10-07] MEDS: Finasteride 5 MG Tablet PO SCH (10:53)
[2018-10-07] MEDS: LORazepam 1 MG Tablet PO SCH ×2 (10:53→20:56)
[2018-10-07 11:19] LABS: Baso % (Auto) 0.1 % (0.0-2.0); Hematocrit 36.1 % (39.0-51.0); Hemoglobin 11.5 gm/dL (13.0-17.0); Lymph # (Auto) 0.3 th/mm3 (1.0-4.8); Lymph % (Auto) 1.5 % (9.0-44.0); Mean Corpuscular Volume 90.7 fL (80.0-100.0); Mean Platelet Volume 7.2 fL (7.0-11.0); Mono # (Auto) 0.8 th/mm3 (0.0-0.9); Mono % (Auto) 4.5 % (0.0-8.0); Neut # (Auto) 17.3 th/mm3 (1.8-7.7); Neut % (Auto) 93.9 % (16.0-70.0); Platelet Count 552 th/mm3 (150-450); Red Blood Count 3.98 mil/mm3 (4.50-5.90); Red Cell Distribution Width 14.4 % (11.6-17.2); White Blood Count 18.4 th/mm3 (4.0-11.0)
[2018-10-07] MEDS: Benztropine 2 MG Tablet PO SCH ×2 (11:21→20:56)
--- NOTE | 2018-10-07 11:27 | P.CONPAL ---
Consult Service: Palliative Care Requesting Physician: Quynh Gudino Reason for Consult: a. To assist with evaluation and management of symptoms including: dyspnea, anxiety. b. To assist medical decision maker(s) with: better understanding of current medical conditions; weighing benefits/burdens of medical treatment options; making medical treatment decisions. Primary Care Provider: UNKNOWN History of Present Illness History of Present Illness: Mr. Fleming is a 63 year old male with past medical history of severe oxygen dependent COPD (8-10 liters per EMR), emphysema, schizophrenia and hypertension. Patient had reportedly been recently treated with multiple rounds antibiotics for bronchitis/ URI. Patient presented to [facility] on 10/04/18 with shortness of breath, cough and fever. He went to [place], was found to have WBC 16,000 and they sent him here for evaluation. Initial findings included: * VS: 98.9, HR 110, RR 28, BP 144/86, oxygen sats 93% * WBC 18.7, hgb 11.7, hct 35.4, platelets 545, neutrophils 88.9% * Sodium 127, potassium 5.0, chloride 87, carbon dioxide 35.3, BUN 8, creatinine 0.58, GFR > 89 * Total bilirubin 0.2, AST 31, ALT 33, Alk phos 95 * Total creatinine kinase 49, troponin less 0.02 * Total protein 8.2, albumin 2.2. * Chest x-ray: Abnormal appearance left hemithorax with large left pleural effusion extending to the apex and segmental infiltrates in left mid lung. Patient is admitted with COPD, pneumonia. Chest ultrasound revealed small left pleural effusion, inadequate for thoracentesis. CT chest revealed, extensive COPD with huge blebs and very low lung parenchymal remaining, loculated left pleural effusion with adjacent parenchymal process may be chronically consolidated lung, however focal mass particularly left lower lobe is difficult to exclude, nonspecific right lower lung nodule, right adrenal mass most likely an adenoma, however it is nonspecific. Pulmonology, Dr. Martínez was consulted with recommendations for CT surgery consult and continuation of antibiotics. Cardiothoracic surgery, Dr. Rodriguez was consulted who felt patient may benefit from lung c=volume reduction surgery, but indicates this would be a high risk procedure and that he should be considered to a lung transplant center for evaluation in order to optimize his outcome. On 10/07/18, patient was found in significant respiratory distress with wheezing and tachypnea. He was transferred to ICU. Discussed with resident team and Dr. Quinn. Stat palliative care consult in this patient with severe COPD, respiratory distress to clarify legal decision maker and clarification fo goals of medical treatment. Patient seen and examined in ICU. No family present. Nurse at bedside. Patient is alert and oriented. He is able to tell me he would want his sister, Nicol Fleming to speak for him, he was able to provide her cell phone number. He tells me he is single, no children, has 5 brothers and 3 sisters. He lives with his sister, Nicol. He was telling resident team he did not want to be intubated. I am not sure he understands what it means. He tells me "Gunner saves all." He asks for his preacher, nurse has asked senior escrow officer to assist. He completed designation of health care surrogate during my visit, nurse witnessed the conversation. Called sisterNicol to notify of conversation and completion of HCS paperwork , she agrees to serve as health care surrogate. Original left in room for patient/family. Sent to HIM and copy placed on chart. She desires continued aggressive care including intubation, bronchoscopy if needed. She verbalizes understanding that patient has a "terminal illness, but wants to give him a chance." She is appreciative of palliative care conversation and welcomes continued updates. Function/Cognitive Trajectory: Patient lives with his sister and has some caregivers who assist in his care. Review of Systems Per family report and limited patient report. All other systems reviewed negative except as stated in HPI Constitutional: Reports anorexia, Reports fatigue, Reports fever(s), Reports lack of energy Cardiovascular: Reports shortness of breath, Reports shortness of breath with activity, Reports shortness of breath when lying down Respiratory: Reports change in phlegm color, Reports cough, Reports shortness of breath, Reports shortness of breath with activity Genitourinary: Reports difficulty urinating (BPH) Psychiatric: Reports anxiety, Reports change in appetite (decreased) Hematologic/Lymphatic: Reports easy bruising PMFSH - History History Provided By: Patient, Family Member - Medical History Medical History: Medical History (Last Updated 10/07/18 @ 11:29 by Malena Wiseman) COPD (chronic obstructive pulmonary disease) Hypertension Inguinal hernia bilateral, non-recurrent Prostate hypertrophy Schizophrenia - Surgical History Surgical History: Surgical History (Last Updated 10/07/18 @ 11:29 by Malena Wiseman) History of hernia repair History of transurethral resection of prostate - Family History Family History: Family History (Last Updated 10/07/18 @ 11:28 by Malena Wiseman) Mother Cancer - Social History I have reviewed the patient's Social History: Yes - Tobacco History Second Hand Smoke Exposure: Yes Tobacco Use In Past 30 Days: No Smoking Status: Former smoker Tobacco Type: Cigarettes Smoking End Date: 7 years ago - Alcohol History How Often Do You Have a Drink Containing Alcohol: Never - Substance Use History Substance History: No History of Abuse - Travel History Recent Travel in the [place] Within the Last 8 Weeks: No Recent Travel Out of the Country Within the Last 8 Weeks: No - Immunization History Tetanus Immunization: >5 Years Medications and Allergies Active Medications: Active Medications Acetaminophen (Tylenol) 650 mg PO Q4H PRN PRN Reason: Temp > 100.4 Al Hydroxide/Mg Hydroxide (Milk Of [place] Liq) 30 ml PO Q12H PRN PRN Reason: Mild Constipation Albuterol (Duoneb Neb (Formerly [facility])) 1 ampul NEB Q4HR NEB [facility] Last Admin: 10/07/18 08:43 Dose: 1 ampul Albuterol (Albuterol Neb (Formerly [facility])) 2.5 mg NEB Q2HR NEB [facility] Last Admin: 10/07/18 08:42 Dose: Not Given Benztropine Mesylate (Cogentin) 2 mg PO BID [facility] Last Admin: 10/06/18 21:00 Dose: 2 mg Bisacodyl (Dulcolax Supp) 10 mg RECTAL DAILY PRN PRN Reason: SEVERE CONSITIPATION Budesonide/Formoterol Fumarate (Symbicort 160/4.5 Mcg Inh) 1 puff INH BID [facility] Last Admin: 10/06/18 20:59 Dose: 1 puff Diltiazem HCl (Cardizem Cd 24hr) 240 mg PO DAILY [facility] Last Admin: 10/06/18 08:57 Dose: 240 mg Enalaprilat (Vasotec Inj) 1.25 mg IV.PUSH Q8H PRN PRN Reason: HYPERTENSION Last Admin: 10/05/18 13:19 Dose: 1.25 mg Finasteride (Proscar) 5 mg PO DAILY [facility] Last Admin: 10/06/18 08:56 Dose: 5 mg Guaifenesin (Mucinex Er) 600 mg PO BID PRN PRN Reason: NASAL CONGESTION Haloperidol (Haldol) 2 mg PO HS [facility] Last Admin: 10/06/18 20:59 Dose: 2 mg Heparin Sodium (Porcine) (Heparin Inj) 5,000 units SQ Q8H [facility] Last Admin: 10/07/18 06:54 Dose: 5,000 units Piperacillin/Tazobactam/Dextrose (Zosyn 4.5 Gm Premix) 4.5 gm in 100 mls @ 200 mls/hr IV.SIG Q6H [facility] Last Infusion: 10/07/18 05:40 Dose: Infused Vancomycin HCl 1,500 mg/ (Sodium Chloride) 515 mls @ 250 mls/hr IV.SIG ONCE ONE Stop: 10/07/18 11:58 Lactulose (Lactulose Liq) 30 ml PO DAILY PRN PRN Reason: SEVERE CONSITIPATION Lorazepam (Ativan) 1 mg PO BID [facility] Last Admin: 10/06/18 21:00 Dose: 1 mg Methylprednisolone Sodium Succinate (Solumedrol Inj) 60 mg IV.PUSH Q6H [facility] Last Admin: 10/07/18 10:29 Dose: 40 mg Metoprolol Succinate (Toprol Xl) 50 mg PO BID [facility] Last Admin: 10/06/18 21:00 Dose: 50 mg Ondansetron HCl (Zofran Inj) 4 mg IV.PUSH Q6H PRN PRN Reason: NAUSEA OR VOMITING Pantoprazole Sodium (Protonix) 40 mg PO DAILY [facility] Last Admin: 10/06/18 08:57 Dose: 40 mg Pharmacy Profile Note (Vancomycin Consult Pharmacy) 1 each OTHER UNSCH PRN PRN Reason: Pharmacy to dose Sennosides (Senokot) 17.2 mg PO Q12H PRN PRN Reason: Moderate Constipation Sodium Chloride (Ns Flush) 2 ml IV.FLUSH BID [facility] Last Admin: 10/06/18 21:00 Dose: 2 ml Sodium Chloride (Ns Flush) 2 ml IV.FLUSH PRN PRN PRN Reason: FLUSH AFTER USING IV ACCESS Tamsulosin HCl (Flomax) 0.4 mg PO DAILY [facility] Last Admin: 10/06/18 08:57 Dose: 0.4 mg Tiotropium [place] (Spiriva 18 Mcg Inh) 18 mcg INH DAILY [facility] Last Admin: 10/06/18 08:58 Dose: 18 mcg Allergies Allergy/AdvReac Type Severity Reaction Status Date / Time ciprofloxacin [From Cipro] AdvReac Nausea Verified 10/04/18 12:27 Home Medications Medication Instructions Recorded Confirmed Type alfuzosin 10 mg PO DAILY 10/04/18 10/04/18 History benztropine [Cogentin] 0.5 mg IM BID 10/04/18 10/04/18 History budesonide-formoterol [Symbicort] 2 puff INHALATION BID 10/04/18 10/04/18 History diltiazem HCl 240 mg PO DAILY 10/04/18 10/04/18 History finasteride 5 mg PO DAILY 10/04/18 10/04/18 History haloperidol 2 mg PO HS 10/04/18 10/04/18 History ipratropium-albuterol [Combivent 1 puff INHALATION Q6H 10/04/18 10/04/18 History Respimat] lorazepam [Ativan] 1 mg PO BID 10/04/18 10/04/18 History metoprolol succinate 50 mg PO BID 10/04/18 10/04/18 History tiotropium bromide [Spiriva 2 puff INHALATION DAILY 10/04/18 10/04/18 History Respimat] Advance Directives Advance Directives Date on File: 10/07/18 Living Will: Unknown Healthcare Surrogate: Yes Health Care Surrogate Name and Number: Nicol Fleming, sister/[facility]: [phone] Power of Cost Coordinator: No Family/friends goals: Goals aggressive at this time, family wants to "give him a chance." Family wants intubation and bronchoscopy if needed. Ethical and Legal Issues: Patient is alert and oriented with limited insight to current health condition. Patient completed designation of health care surrogate naming his sister, Nicol Fleming as health care surrogate. Physical Exam Vital Signs: Vital Signs - 24 hr 10/06/18 11:00 10/06/18 12:00 10/06/18 12:40 Temperature 98.2 F Pulse Rate 97 H 110 H 108 H Respiratory Rate 32 H 36 H Blood Pressure 147/87 H Pulse Oximetry 97 10/06/18 13:00 10/06/18 14:00 10/06/18 15:00 Temperature Pulse Rate 104 H 96 H 99 H Respiratory Rate Blood Pressure Pulse Oximetry 02/17/19 16:00 10/06/18 16:31 10/06/18 17:00 Temperature 97.9 F Pulse Rate 97 H 94 H 78 Respiratory Rate 30 H 22 Blood Pressure 142/77 H Pulse Oximetry 97 10/06/18 18:00 10/06/18 19:00 10/06/18 19:22 Temperature Pulse Rate 78 72 89 Respiratory Rate 20 Blood Pressure Pulse Oximetry 95 10/06/18 20:00 10/06/18 21:00 10/06/18 21:29 Temperature Pulse Rate 75 82 Respiratory Rate 18 Blood Pressure 120/74 Pulse Oximetry 95 96 10/06/18 22:00 10/06/18 23:00 10/06/18 23:52 Temperature Pulse Rate 82 86 90 Respiratory Rate 24 Blood Pressure 123/63 Pulse Oximetry 100 10/07/18 00:00 10/07/18 00:08 10/07/18 01:00 Temperature Pulse Rate 75 91 H 70 Respiratory Rate 20 Blood Pressure Pulse Oximetry 10/07/18 02:00 10/07/18 03:00 10/07/18 04:00 Temperature Pulse Rate 68 86 88 Respiratory Rate 22 Blood Pressure 158/97 H Pulse Oximetry 99 10/07/18 04:55 10/07/18 05:00 10/07/18 06:00 Temperature Pulse Rate 84 88 84 Respiratory Rate 20 Blood Pressure Pulse Oximetry 10/07/18 08:45 10/07/18 08:46 10/07/18 09:05 Temperature Pulse Rate 109 H Respiratory Rate 32 H Blood Pressure Pulse Oximetry 95 99 I&O: Intake & Output 10/05/18 10/06/18 10/07/18 10/08/18 06:59 06:59 06:59 06:59 Intake Total 2690 / 2690 5760 / 5760 3490 / 3490 Output Total 1365 / 1365 5025 / 5025 3050 / 3050 Balance 1325 / 1325 735 / 735 440 / 440 Weight 84.9 kg 81.8 kg 81.4 kg Physical Exam: CONSTITUTIONAL/GENERAL: This is an adequately nourished patient, tachypneic. TUBES/LINES/DRAINS: oxygen via mask, PIV. SKIN: No jaundice, rashes, or lesions. Ecchymoses on upper extremities. No wounds seen anteriorly. Skin temperature appropriate. Not diaphoretic. HEAD: Atraumatic. Normocephalic. EYES: Pupils equal and round and reactive. ENT: Hearing grossly normal. Nose without bleeding or purulent drainage. Throat without visible erythema, exudates, masses, or lesions. NECK: Trachea midline. CARDIOVASCULAR: Tachycardic. No JVD. Peripheral pulses symmetric. RESPIRATORY/CHEST: Labored respirations. Diminished breath sounds. Wheezing. Using accessory muscles to breath. GASTROINTESTINAL: Abdomen soft, non-tender, nondistended. No guarding. Bowel sounds present. GENITOURINARY: Without palpable bladder distension. Bautista catheter in place. MUSCULOSKELETAL: Extremities without clubbing, cyanosis, or edema. No mottling or clubbing. LYMPHATICS: Not examined. NEUROLOGICAL: Awake and alert oriented to person and place. Limited insight. Moves all extremities. PSYCHIATRIC: Some psychotic thought process. Diagnostic Tests Laboratory: Laboratory Results - last 72 hr 10/04/18 10/04/18 10/04/18 12:50 12:50 12:50 WBC 18.7 H RBC 3.97 L Hgb 11.7 L Hct 35.4 L MCV 89.1 MCH 29.6 MCHC 33.2 RDW 14.2 Plt Count 545 H MPV 7.0 Prelim Diff (Auto) Slide review pending Neut % (Auto) 88.9 H Lymph % (Auto) 3.0 L [place] % (Auto) 7.8 Eos % (Auto) 0.1 Baso % (Auto) 0.2 Neut # (Auto) 16.6 H Lymph # (Auto) 0.6 L [place] # (Auto) 1.5 H Eos # (Auto) 0.0 Baso # (Auto) 0.0 WBC Differential Manual diff final Seg Neuts % (Manual) 81 H Band Neuts % (Manual) 11 H Lymphocytes % (Manual) 1 L Monocytes % (Manual) 7 Abs Neuts (Manual) 17.2 H Differential Comment . Toxic Granulation Platelet Estimate High H Platelet Morphology Normal RBC Morphology Normal Puncture Site Patient Temperature O2 Saturation ABG pH ABG pCO2 ABG pO2 ABG HCO3 ABG O2 Content ABG Base Excess ABG Methemoglobin Enrique Test Hemoglobin Carboxyhemoglobin O2 Delivery Device Liter Flow Inspired O2 Critical Value Sodium 127 L Potassium 5.0 Chloride 87 L Carbon Dioxide 35.3 H Anion Gap 5 BUN 8 Creatinine 0.58 L Estimated GFR Greater than 89 POC Glucose Random Glucose 165 H Lactic Acid Calcium 8.6 Total Bilirubin 0.2 AST 31 ALT 33 Alkaline Phosphatase 95 Total Creatine Kinase 49 Troponin I Less than 0.02 L B-Natriuretic Peptide 53 Total Protein 8.2 Albumin 2.2 L Procalcitonin Urine Color Urine Clarity Urine pH Ur Specific [place] Urine Protein Urine Glucose (UA) Urine Ketones Urine Occult Blood Urine Nitrate Urine Bilirubin Urine Urobilinogen Ur Leukocyte Esterase Urine WBC Hyaline Casts Granular Casts Urine Mucus Micro UA Comment Ur Microscopic Review Urine Culture Comments 10/04/18 10/04/18 10/04/18 12:50 15:15 18:38 WBC RBC Hgb Hct MCV MCH MCHC RDW Plt Count MPV Prelim Diff (Auto) Neut % (Auto) Lymph % (Auto) [place] % (Auto) Eos % (Auto) Baso % (Auto) Neut # (Auto) Lymph # (Auto) [place] # (Auto) Eos # (Auto) Baso # (Auto) WBC Differential Seg Neuts % (Manual) Band Neuts % (Manual) Lymphocytes % (Manual) Monocytes % (Manual) Abs Neuts (Manual) Differential Comment Toxic Granulation Platelet Estimate Platelet Morphology RBC Morphology Puncture Site Right radial Patient Temperature 98.6 O2 Saturation 96 ABG pH 7.40 ABG pCO2 54 H* ABG pO2 106 ABG HCO3 33 H ABG O2 Content 14.1 ABG Base Excess 7.6 H ABG Methemoglobin 0.6 Enrique Test Y Hemoglobin 10.3 L Carboxyhemoglobin 1.2 O2 Delivery Device Nrb Liter Flow Inspired O2 100 Critical Value Yes Sodium Potassium Chloride Carbon Dioxide Anion Gap BUN Creatinine Estimated GFR POC Glucose Random Glucose Lactic Acid 1.1 Calcium Total Bilirubin AST ALT Alkaline Phosphatase Total Creatine Kinase Troponin I B-Natriuretic Peptide Total Protein Albumin Procalcitonin Urine Color Yellow Urine Clarity Hazy H Urine pH 6.0 Ur Specific [place] 1.018 Urine Protein 30 H Urine Glucose (UA) Negative Urine Ketones Trace H Urine Occult Blood Negative Urine Nitrate Negative Urine Bilirubin Negative Urine Urobilinogen Less than 2 Ur Leukocyte Esterase Negative Urine WBC 3 Hyaline Casts 3 Granular Casts 5 Urine Mucus Few H Micro UA Comment Culture not ind Ur Microscopic Review Not Reportable Urine Culture Comments Culture not ind 10/04/18 10/04/18 10/04/18 20:35 20:35 23:28 WBC RBC Hgb Hct MCV MCH MCHC RDW Plt Count MPV Prelim Diff (Auto) Neut % (Auto) Lymph % (Auto) [place] % (Auto) Eos % (Auto) Baso % (Auto) Neut # (Auto) Lymph # (Auto) [place] # (Auto) Eos # (Auto) Baso # (Auto) WBC Differential Seg Neuts % (Manual) Band Neuts % (Manual) Lymphocytes % (Manual) Monocytes % (Manual) Abs Neuts (Manual) Differential Comment Toxic Granulation Platelet Estimate Platelet Morphology RBC Morphology Puncture Site Patient Temperature O2 Saturation ABG pH ABG pCO2 ABG pO2 ABG HCO3 ABG O2 Content ABG Base Excess ABG Methemoglobin Enrique Test Hemoglobin Carboxyhemoglobin O2 Delivery Device Liter Flow Inspired O2 Critical Value Sodium 130 L Potassium 5.2 H Chloride 93 L Carbon Dioxide 30.2 Anion Gap 7 BUN 6 L Creatinine 0.50 L Estimated GFR Greater than 89 POC Glucose Random Glucose 165 H Lactic Acid Calcium 8.5 Total Bilirubin AST ALT Alkaline Phosphatase Total Creatine Kinase Troponin I B-Natriuretic Peptide 44 Total Protein Albumin Procalcitonin 0.22 H Urine Color Urine Clarity Urine pH Ur Specific [place] Urine Protein Urine Glucose (UA) Urine Ketones Urine Occult Blood Urine Nitrate Urine Bilirubin Urine Urobilinogen Ur Leukocyte Esterase Urine WBC Hyaline Casts Granular Casts Urine Mucus Micro UA Comment Ur Microscopic Review Urine Culture Comments 10/05/18 10/05/18 10/06/18 08:23 08:23 06:44 WBC 20.4 H 26.0 H RBC 3.68 L 3.83 L Hgb 11.0 L 11.4 L Hct 32.8 L 34.5 L MCV 89.2 90.2 MCH 29.8 29.9 MCHC 33.4 33.2 RDW 14.2 14.2 Plt Count 521 H 583 H MPV 6.8 L 7.3 Prelim Diff (Auto) Slide review pending Neut % (Auto) 94.5 H 94.4 H Lymph % (Auto) 2.4 L 1.5 L [place] % (Auto) 3.1 3.7 Eos % (Auto) 0.0 0.0 Baso % (Auto) 0.0 0.4 Neut # (Auto) 19.2 H 24.6 H Lymph # (Auto) 0.5 L 0.4 L [place] # (Auto) 0.6 1.0 H Eos # (Auto) 0.0 0.0 Baso # (Auto) 0.0 0.1 WBC Differential . Manual diff final Seg Neuts % (Manual) 92 H Band Neuts % (Manual) 3 Lymphocytes % (Manual) 1 L Monocytes % (Manual) 4 Abs Neuts (Manual) 24.7 H Differential Comment Auto diff final . Toxic Granulation 1+ H Platelet Estimate High H Platelet Morphology Normal RBC Morphology Puncture Site Patient Temperature O2 Saturation ABG pH ABG pCO2 ABG pO2 ABG HCO3 ABG O2 Content ABG Base Excess ABG Methemoglobin Enrique Test Hemoglobin Carboxyhemoglobin O2 Delivery Device Liter Flow Inspired O2 Critical Value Sodium 133 L Potassium 4.0 D Chloride 93 L Carbon Dioxide 34.8 H Anion Gap 5 BUN 6 L Creatinine 0.44 L Estimated GFR Greater than 89 POC Glucose Random Glucose 146 H Lactic Acid Calcium 8.7 Total Bilirubin 0.2 AST 15 ALT 31 Alkaline Phosphatase 86 Total Creatine Kinase Troponin I B-Natriuretic Peptide Total Protein 7.7 Albumin 2.2 L Procalcitonin Urine Color Urine Clarity Urine pH Ur Specific [place] Urine Protein Urine Glucose (UA) Urine Ketones Urine Occult Blood Urine Nitrate Urine Bilirubin Urine Urobilinogen Ur Leukocyte Esterase Urine WBC Hyaline Casts Granular Casts Urine Mucus Micro UA Comment Ur Microscopic Review Urine Culture Comments 10/06/18 10/07/18 10/07/18 06:44 08:54 09:07 WBC RBC Hgb Hct MCV MCH MCHC RDW Plt Count MPV Prelim Diff (Auto) Neut % (Auto) Lymph % (Auto) [place] % (Auto) Eos % (Auto) Baso % (Auto) Neut # (Auto) Lymph # (Auto) [place] # (Auto) Eos # (Auto) Baso # (Auto) WBC Differential Seg Neuts % (Manual) Band Neuts % (Manual) Lymphocytes % (Manual) Monocytes % (Manual) Abs Neuts (Manual) Differential Comment Toxic Granulation Platelet Estimate Platelet Morphology RBC Morphology Puncture Site Right radial Patient Temperature 98.6 O2 Saturation 98 ABG pH 7.27 L* ABG pCO2 85 H* ABG pO2 164 H ABG HCO3 38 H ABG O2 Content 15.5 ABG Base Excess 11.1 H ABG Methemoglobin 0.7 Enrique Test Present Hemoglobin 11.1 L Carboxyhemoglobin 0.8 O2 Delivery Device Prb Liter Flow 15.00 Inspired O2 Critical Value Yes Sodium 133 L Potassium 3.2 L D Chloride 93 L Carbon Dioxide 31.7 Anion Gap 8 BUN 8 Creatinine 0.60 Estimated GFR Greater than 89 POC Glucose 156 H Random Glucose 104 Lactic Acid Calcium 8.6 Total Bilirubin AST ALT Alkaline Phosphatase Total Creatine Kinase Troponin I B-Natriuretic Peptide Total Protein Albumin Procalcitonin Urine Color Urine Clarity Urine pH Ur Specific [place] Urine Protein Urine Glucose (UA) Urine Ketones Urine Occult Blood Urine Nitrate Urine Bilirubin Urine Urobilinogen Ur Leukocyte Esterase Urine WBC Hyaline Casts Granular Casts Urine Mucus Micro UA Comment Ur Microscopic Review Urine Culture Comments Result Diagrams: 10/07/18 10:49 10/06/18 06:44 Microbiology: Microbiology 10/05/18 21:00 Gram Stain - Final Sputum - Expectorated Sputum Sputum Culture - Preliminary Heavy growth normal respiratory lacho at 24 hours 10/04/18 12:55 Aerobic Blood Culture - Preliminary Blood - Peripheral No growth in 2 days Anaerobic Blood Culture - Preliminary No growth in 2 days 10/04/18 12:50 Aerobic Blood Culture - Preliminary Blood - Peripheral No growth in 2 days Anaerobic Blood Culture - Preliminary No growth in 2 days 10/04/18 12:50 Legionella Antigen - Final Urine - Clean Catch Urine Presumptive negative for Legionella pneumophila serogroup 1 antigen in urine, suggesting no recent or recurrent infection. Infection due to Legionella cannot be ruled out since other serogroups and species may cause disease, antigen may not be present in urine in early infection, and the level of antigen present in the urine may be below the detection limit of the test. 10/04/18 15:10 Influenza Types A,B Antigen - Final Nasal Wash Negative for FLU A and B antigen Infection due to influenza A or B cannot be ruled out since the antigen present in the sample may be below the detection limit of the test. Imaging: Chest CT 10/04/18 00:00 CONCLUSION: 1. Extensive COPD with huge blebs and very low lung parenchymal remaining. 2. Loculated left pleural effusion with adjacent parenchymal process may be chronically consolidated lung, however focal mass particularly left lower lobe is difficult to exclude. 3. Nonspecific right lower lung nodule. 4. Right adrenal mass most likely an adenoma, however it is nonspecific. Chest Ultrasound 10/05/18 00:00 CONCLUSION: 1. Small left pleural effusion. Inadequate for thoracentesis. Chest X-Ray 10/07/18 09:19 CONCLUSION: 1. Resolved right pleural effusion. 2. Moderate-sized laterally loculated left pleural effusion slightly smaller. 3. Bibasilar atelectasis again noted. 4. Severe centrilobular bullous emphysema. Patient/Family Conference Present at Family Conference: Spoke with patient at bedside. Called to speak with sister via phone. Family Conference Time: 60 Family Conference Location: Bedside, Telephone Issues Discussed: * Palliative care role, purpose, approach * Additional medical, psychosocial, and spiritual history * Patients general health, functional status, and cognitive changes in the months leading up to the current hospitalization * Patient/family understanding of the current medical problems * Patient/family understanding of prognosis * Patients goals of care as best understood from advance directives and/or conversations and/or values * Current medical treatment options and benefits/burdens of those options * Likely scenarios comparing ongoing aggressive care with a transition to comfort measures only * Questions answered to the best of my ability * Palliative care contact information provided Assessment and Plan - Disease Oriented Problem List (1) Pneumonia (2) Pleural effusion on left (3) COPD (chronic obstructive pulmonary disease) (4) Schizophrenia (5) Nutrition, metabolism, and development symptoms (6) BPH (benign prostatic hyperplasia) (7) HTN (hypertension) (8) Lung nodule - Symptom Scale (1) Dyspnea 0-10 Scale: Unable to quantify Pertinent Non-Medical Issues: Psychosocial: Single, No children. Lives with his sisterNicol. Has 5 brothers and 3 sisters. Spiritual:Welcomes senior escrow officer support. Legal: Patient is alert and oriented with limited insight to current health condition. Patient completed designation of health care surrogate naming his sister, Nicol Fleming as health care surrogate. Ethical issues impacting care: Important Contacts: * sister Small/[facility]: [phone] Prognosis: Mr. Fleming is a 63 year old male with severe COPD/ emphysema admitted with pneumonia. Overall prognosis is poor. Code Status: Full Code Plan: * Patient is alert and oriented with limited insight to current health condition. Patient completed designation of health care surrogate naming his sister, Nicol Fleming as health care surrogate. * FULL CODE. * Welcomes senior escrow officer visits. * Goals: Called Nicol de la cruz to notify of conversation and completion of [facility] paperwork, she agrees to serve as health care surrogate. Original left in room for patient/family. Sent to HIM and copy placed on chart. She desires continued aggressive care including intubation, bronchoscopy if needed. She verbalizes understanding that patient has a "terminal illness, but wants to give him a chance." She is appreciative of palliative care conversation and welcomes continued updates. * SYMPTOMS: Dyspnea: due to severe oxygen dependent COPD, emphysema, pneumonia. On oxygen via mask, tachypneic, will likely require intubation and bronchoscopy. * Palliative care number provided. * Palliative care will continue to follow to assist with communication, symptom management and further clarification of goals of medical treatment through out hospital course. Appreciation Thank you for the opportunity to participate in the care of José Miguel Fleming. Attestation Attestation: To help prompt me to consider important information that might be impacting today's encounter and assessment, information from prior notes written by myself or my colleagues may have been "brought forward" into today's note. My signature on this note, however, is an attestation that I personally performed the exam, history, and/or decision-making noted today, and, unless otherwise indicated, the interactions with patient, family, and staff as well as the review of records all occurred today. I also attest that the listed assessment and stated plan reflect my best clinical judgment today based on the combination of historical information, prior notes, and today's exam/ interactions. When time spent is documented, it refers only to time spent today by the signer, or if indicated, combined time spent today by collaborating physician/nurse practitioner.
[2018-10-07 11:40] LABS: Albumin 2.6 g/dL (3.4-5.0); Anion Gap 5 meq/L (5-15); Aspartate Aminotransferase 17 U/L (15-37); Blood Urea Nitrogen 11 mg/dL (7-18); Calcium 8.9 mg/dL (8.5-10.1); Carbon Dioxide 37.6 meq/L (21.0-32.0); Chloride 90 meq/L (98-107); Glomerular Filtration Rate Greater Than 89 mL/min (>89); Glucose,Random 146 mg/dL (74-106); Potassium 3.8 meq/L (3.5-5.1); Sodium 133 meq/L (136-145)
[2018-10-07 11:41] LABS: Alanine Aminotransferase 36 U/L (12-78)
[2018-10-07 11:43] LABS: Alkaline Phosphatase 80 U/L (45-117); Total Protein 7.8 g/dL (6.4-8.2)
--- NOTE | 2018-10-07 11:43 | P.CONCC ---
History of Present Illness Service: ICU Consult date: 10/07/18 Requesting Physician: Quynh Gudino Reason for Consult: Respiratory distress Primary Care Provider: UNKNOWN Chief Complaint: Dyspnea, leukocytosis History of Present Illness: This is a 63-year-old male with a medical history significant for COPD, (severe) , emphysema,schizophrenia and hypertension that presented to [facility] on 10/04/18 on the family medicine service. At the time of the of admission a CT chest was obtained which revealed extensive COPD with a huge blebs and very low lung parenchymal remaining. The patient was also noted to have a small left pleural effusion unable to perform a thoracentesis because of inadequate fluid . The patient has been on the family medicine service and under the recommendation of the pediatric speech therapist CTS surgery was consulted for the patient being evaluated for possible lung reduction surgery and pulmonology for management. The patient also has been known to have a recent bout of pneumonia and has been on antibiotics. This a.m. the patient was having increasing respiratory distress placed on a nonrebreather mask and a Halicat was initiated. The patient was transferred emergently to ICU for possible emergent intubation, and critical care medicine was consulted for management. After discussion with Dr. Andra Gudino , attending. The patient is in process of being transferred to [facility] in [facility] for evaluation of lung reduction surgery. The patient's sister was contacted regarding the possibility of emergent intubation. Palliative care was also consulted to define goals of care. Upon my initial evaluation of the patient, the patient's respiratory rate was 25-30, on a nonrebreather mask and the patient was receiving a diuretic Diamox at the time. Patient received DuoNeb treatments. Patient currently has been weaned down to FiO2 of 50%, and is closely being monitored. The patient's past medical history is also significant for schizophrenia hypertension and BPH. Review of Systems All other systems reviewed negative except as stated in HPI PMFSH - History History Provided By: Patient, Family Member - Medical History Medical History: Medical History (Last Updated 10/07/18 @ 11:29 by Malena Wiseman) COPD (chronic obstructive pulmonary disease) Hypertension Inguinal hernia bilateral, non-recurrent Prostate hypertrophy Schizophrenia - Surgical History Surgical History: Surgical History (Last Updated 10/07/18 @ 11:29 by Malena Wiseman) History of hernia repair History of transurethral resection of prostate - Family History Family History: Family History (Last Updated 10/07/18 @ 11:28 by Malena Wiseman) Mother Cancer - Tobacco History Second Hand Smoke Exposure: Yes Tobacco Use In Past 30 Days: No Smoking Status: Former smoker Tobacco Type: Cigarettes - Alcohol History How Often Do You Have a Drink Containing Alcohol: Never - Substance Use History Substance History: No History of Abuse - Travel History Recent Travel in the [place] Within the Last 8 Weeks: No Recent Travel Out of the Country Within the Last 8 Weeks: No - Immunization History Tetanus Immunization: >5 Years Medications and Allergies Active Medications: Active Medications Acetaminophen (Tylenol) 650 mg PO Q4H PRN PRN Reason: Temp > 100.4 Al Hydroxide/Mg Hydroxide (Milk Of [place] Liq) 30 ml PO Q12H PRN PRN Reason: Mild Constipation Albuterol (Duoneb Neb ([facility])) 1 ampul NEB Q4HR NEB [facility] Last Admin: 10/07/18 11:29 Dose: 1 ampul Albuterol (Albuterol Neb ([facility])) 2.5 mg NEB Q2HR NEB [facility] Last Admin: 10/07/18 11:30 Dose: Not Given Benztropine Mesylate (Cogentin) 2 mg PO BID [facility] Last Admin: 10/07/18 11:21 Dose: 2 mg Bisacodyl (Dulcolax Supp) 10 mg RECTAL DAILY PRN PRN Reason: SEVERE CONSITIPATION Budesonide/Formoterol Fumarate (Symbicort 160/4.5 Mcg Inh) 1 puff INH BID [facility] Last Admin: 10/06/18 20:59 Dose: 1 puff Diltiazem HCl (Cardizem Cd 24hr) 240 mg PO DAILY [facility] Last Admin: 10/07/18 10:53 Dose: 240 mg Enalaprilat (Vasotec Inj) 1.25 mg IV.PUSH Q8H PRN PRN Reason: HYPERTENSION Last Admin: 10/05/18 13:19 Dose: 1.25 mg Finasteride (Proscar) 5 mg PO DAILY [facility] Last Admin: 10/07/18 10:53 Dose: 5 mg Guaifenesin (Mucinex Er) 600 mg PO BID PRN PRN Reason: NASAL CONGESTION Haloperidol (Haldol) 2 mg PO HS [facility] Last Admin: 10/06/18 20:59 Dose: 2 mg Heparin Sodium (Porcine) (Heparin Inj) 5,000 units SQ Q8H [facility] Last Admin: 10/07/18 06:54 Dose: 5,000 units Piperacillin/Tazobactam/Dextrose (Zosyn 4.5 Gm Premix) 4.5 gm in 100 mls @ 200 mls/hr IV.SIG Q6H [facility] Last Infusion: 10/07/18 05:40 Dose: Infused Vancomycin HCl 1,500 mg/ (Sodium Chloride) 515 mls @ 250 mls/hr IV.SIG ONCE ONE Stop: 10/07/18 14:03 Lactulose (Lactulose Liq) 30 ml PO DAILY PRN PRN Reason: SEVERE CONSITIPATION Lorazepam (Ativan) 1 mg PO BID [facility] Last Admin: 10/07/18 10:53 Dose: 1 mg Methylprednisolone Sodium Succinate (Solumedrol Inj) 60 mg IV.PUSH Q6H [facility] Last Admin: 10/07/18 10:57 Dose: 60 mg Metoprolol Succinate (Toprol Xl) 50 mg PO BID [facility] Last Admin: 10/07/18 10:53 Dose: 50 mg Ondansetron HCl (Zofran Inj) 4 mg IV.PUSH Q6H PRN PRN Reason: NAUSEA OR VOMITING Pantoprazole Sodium (Protonix) 40 mg PO DAILY [facility] Last Admin: 10/07/18 10:54 Dose: 40 mg Pharmacy Profile Note (Vancomycin Consult Pharmacy) 1 each OTHER UNSCH PRN PRN Reason: Pharmacy to dose Sennosides (Senokot) 17.2 mg PO Q12H PRN PRN Reason: Moderate Constipation Sodium Chloride (Ns Flush) 2 ml IV.FLUSH BID [facility] Last Admin: 10/07/18 10:54 Dose: 2 ml Sodium Chloride (Ns Flush) 2 ml IV.FLUSH PRN PRN PRN Reason: FLUSH AFTER USING IV ACCESS Tamsulosin HCl (Flomax) 0.4 mg PO DAILY [facility] Last Admin: 10/07/18 10:53 Dose: 0.4 mg Tiotropium Corona (Spiriva 18 Mcg Inh) 18 mcg INH DAILY [facility] Last Admin: 10/06/18 08:58 Dose: 18 mcg Allergies Allergy/AdvReac Type Severity Reaction Status Date / Time ciprofloxacin [From Cipro] AdvReac Nausea Verified 10/04/18 12:27 Home Medications Medication Instructions Recorded Confirmed Type alfuzosin 10 mg PO DAILY 10/04/18 10/04/18 History benztropine [Cogentin] 0.5 mg IM BID 10/04/18 10/04/18 History budesonide-formoterol [Symbicort] 2 puff INHALATION BID 10/04/18 10/04/18 History diltiazem HCl 240 mg PO DAILY 10/04/18 10/04/18 History finasteride 5 mg PO DAILY 10/04/18 10/04/18 History haloperidol 2 mg PO HS 10/04/18 10/04/18 History ipratropium-albuterol [Combivent 1 puff INHALATION Q6H 10/04/18 10/04/18 History Respimat] lorazepam [Ativan] 1 mg PO BID 10/04/18 10/04/18 History metoprolol succinate 50 mg PO BID 10/04/18 10/04/18 History tiotropium bromide [Spiriva 2 puff INHALATION DAILY 10/04/18 10/04/18 History Respimat] Physical Exam Vital signs: Vital Signs 10/06/18 12:00 10/06/18 12:40 10/06/18 13:00 Temperature 98.2 F Pulse Rate 110 H 108 H 104 H Respiratory Rate 32 H 36 H Blood Pressure 147/87 H Pulse Oximetry 97 10/06/18 14:00 10/06/18 15:00 10/06/18 16:00 Temperature 97.9 F Pulse Rate 96 H 99 H 97 H Respiratory Rate 30 H Blood Pressure 142/77 H Pulse Oximetry 97 10/06/18 16:31 10/06/18 17:00 10/06/18 18:00 Temperature Pulse Rate 94 H 78 78 Respiratory Rate 22 Blood Pressure Pulse Oximetry 10/06/18 19:00 10/06/18 19:22 10/06/18 20:00 Temperature Pulse Rate 72 89 75 Respiratory Rate 20 18 Blood Pressure 120/74 Pulse Oximetry 95 95 10/06/18 21:00 10/06/18 21:29 10/06/18 22:00 Temperature Pulse Rate 82 82 Respiratory Rate Blood Pressure Pulse Oximetry 96 10/06/18 23:00 10/06/18 23:52 10/07/18 00:00 Temperature Pulse Rate 86 90 75 Respiratory Rate 24 Blood Pressure 123/63 Pulse Oximetry 100 10/07/18 00:08 10/07/18 01:00 10/07/18 02:00 Temperature Pulse Rate 91 H 70 68 Respiratory Rate 20 Blood Pressure Pulse Oximetry 10/07/18 03:00 10/07/18 04:00 10/07/18 04:55 Temperature Pulse Rate 86 88 84 Respiratory Rate 22 20 Blood Pressure 158/97 H Pulse Oximetry 99 10/07/18 05:00 10/07/18 06:00 10/07/18 08:45 Temperature Pulse Rate 88 84 Respiratory Rate Blood Pressure Pulse Oximetry 95 10/07/18 08:46 10/07/18 09:05 10/07/18 11:32 Temperature Pulse Rate 109 H 109 H Respiratory Rate 32 H 20 Blood Pressure Pulse Oximetry 99 Intake & Output 10/06/18 10/07/18 10/07/18 18:59 06:59 18:59 Intake Total 2330 / 2330 1160 / 1160 Output Total 1550 / 1550 1500 / 1500 Balance 780 / 780 -340 / -340 Weight 81.4 kg Intake: IV 410 / 410 200 / 200 NS Inj 1,000 ML @ 125 mls/hr IV 210 / 210 .CONT .Q8H ERINN Rx#:[id number] Zosyn 4.5 GM Premix 4.5 gm In 200 / 200 200 / 200 100 ml @ 200 mls/hr IV.SIG Q6H ERINN Rx#:[id number] Oral 1920 / 1920 960 / 960 Output: Urine 1550 / 1550 1500 / 1500 Other: Date of Last Bowel Movement 10/05/18 10/05/18 - Constitutional mild distress, average body habitus, chronically ill appearing, cooperative - Routine HEENT Exam Head: Present: normocephalic, atraumatic Eye: Present: EOMI, PERRL, normal accommodation, conjunctivae pink ENT: Present: mucous membranes moist, nares patent, external ear normal - Routine Neck Exam Present: supple, full ROM, trachea midline - Routine Respiratory Exam Present: prolonged expiratory phase, respiratory distress, wheezes - Routine Cardiovascular Exam Present: RRR, S1, S2 - Routine Abdominal Exam Present: soft, normoactive bowel sounds - Routine Extremities Exam Present: full ROM, pulses intact, normal capillary refill - Routine Skin Exam Present: intact - Routine Neurological Exam Present: alert, oriented X3, CN II-XII intact, moving all extremities, normal tone, vision grossly intact, hearing grossly intact - Detailed Neurological Exam: Coma Scale Eye Opening: Spontaneous Verbal Response: Oriented Motor Response: Obey commands Mullan Coma Scale Total: 15 - Routine Psychiatric Exam Present: cooperative Assessment and Plan - Problem List (1) Pneumonia Code(s): J18.9 - Pneumonia, unspecified organism Status: Acute (2) Pleural effusion on left Code(s): J90 - Pleural effusion, not elsewhere classified Status: Acute (3) COPD (chronic obstructive pulmonary disease) Code(s): J44.9 - Chronic obstructive pulmonary disease, unspecified Status: Acute (4) Schizophrenia Code(s): F20.9 - Schizophrenia, unspecified Status: Acute (5) BPH (benign prostatic hyperplasia) Code(s): N40.0 - Benign prostatic hyperplasia without lower urinary tract symptoms Status: Acute (6) HTN (hypertension) Code(s): I10 - Essential (primary) hypertension Status: Acute (7) Lung nodule Code(s): R91.1 - Solitary pulmonary nodule Status: Acute - Assessment and Plan Plan: Plan by systems: Neurologic: Schizophrenia Continue current home medications to include Cogentin, Ativan and Haldol Acetaminophen 650 mg every 6 hours as needed for pain and/or temperature greater than 101.0 Respiratory: Acute hypoxemic respiratory failure Severe bullous lung disease COPD exacerbation Left pleural effusion Pneumonia Continue to wean FiO2 currently on Ventimask at 50% O2 sat 98% BiPAP as needed as per recommendations of pediatric speech therapist Pulmonology following Per recommendations of CTS surgery, plan transfer to [facility] for evaluation of possible lung reduction surgery Duo nebs as scheduled Continue methylprednisolone 60 mg every 6 hours Diamox 250 mg x1 dose now ID consulted for possible pneumonia ,empiric antibiotics see below Cardiovascular: Hypertension Maintain map greater than 65 Continue Cardizem 240 CD/daily Continue metoprolol 50mg BID Renal: No Bautista required at this time -- Strict I/Os FEN/GI: Maintain n.p.o. status for now patient is at risk for emergent intubation Bowel regimen Zofran for nausea Heme/ID: Leukocytosis Possible pneumonia ID consulted for pneumonia Patient previously on Zosyn, expand coverage to include atypical, we will add vancomycin and azithromycin Monitor CBC Endocrine: Glucose monitoring per ICU protal -- SSI Prophylaxis: GI Prophylaxis Protonix DVT Prophylaxis -- SCDs Heparin subcu 3 times daily Lines: IVs providing adequate access at this time. Central line if indicated Dispo: The patient has severe COPD with acute hypoxemic respiratory insufficiency/ failure. The patient is at risk for emergent intubation. Since performed with sister who is now healthcare surrogate, Elise. All questions answered. Tentative plans for tentative transfer to [facility] ICU at the [facility] for evaluation for possible lung reduction surgery My billing statement This patient remains critically ill with one or more organ systems which are or may become a threat to life. I have spent in excess of 50 minutes discontinuously in the care and management of this patient. This time is exclusive of procedures, and includes, but is not limited to, evaluation of the patient, review of the medical record, discussions with family, consultants, nursing staff, or respiratory therapy, and documentation in the medical record. Code Status: Full Discussed Condition With: Healthcare surrogate Elise (patient's sister), Ms. Ana M Wiseman palliative care wallpaper remover steam, Dr. Quynh Gudino family medicine attending, and PRINT MANAGER at bedside (3) COPD (chronic obstructive pulmonary disease) Qualifiers: COPD type: emphysema Emphysema type: panlobular Qualified Code(s): J43.1 - Panlobular emphysema
[2018-10-07] MEDS ORDERED: Vancomycin Inj 1,500 MG in Sodium Chlor 0.9% Inj 500 ML IV.SIG ONE (12:00)
[2018-10-07 12:46] LABS: Lymphocytes 3 % (9-44); Metamyelocytes 4 % (0-1); Monocytes 4 % (0-8); Myelocytes 1 % (0-0); Platelet Morphology Normal (Normal)
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
--- NOTE | 2018-10-07 15:25 | ECG ---
Date Performed: 10/07/2018 Time Performed: 09:22:10 PTAGE: 63 years EKG: Sinus tachycardia. Normal ECG except for rate Since PREVIOUS TRACING , no significant change noted PREVIOUS TRACIN10/04/2018 11.57.18 DOCTOR: Nathan Machado Interpretating Date/Time 10/07/2018 15:23:52
[2018-10-07] MEDS: Azithromycin Inj 500 MG in Sodium Chlor 0.9% Inj 250 ML IV.SIG SCH (15:35)
--- NOTE | 2018-10-07 16:21 | P.PNADD ---
Addendum to Inpatient Note Reason for Addendum: Additional Documentation Additional information: Patient examined this afternoon at 1620. Resting comfortably in bed on 10L O2 high flow with 70% FiO2. Patient able to answer questions and is very pleasant. Appears to be improving from this morning. No other complaints.
[2018-10-07] MEDS: Haloperidol 1 MG Tablet PO SCH (22:09)
[2018-10-08] MEDS: Vancomycin Inj 1,500 MG in Sodium Chlor 0.9% Inj 500 ML IV.SIG SCH ×2 (00:52→12:30)
[2018-10-08] MEDS: MethylPREDNISolone Sod Succinate Inj 40 MG/ML Vial IV.PUSH SCH ×3 (03:30→15:07)
[2018-10-08] MEDS: Piperacil/Tazo 4.5 GM Premix 4.5 GM/100 ML BAG IV.SIG SCH ×3 (03:30→15:09)
[2018-10-08] MEDS: Heparin - SQ 10,000 UNITS/ML Vial SQ SCH ×2 (06:35→15:06)
--- NOTE | 2018-10-08 06:51 | P.PNFP ---
Subjective Interval history: Currently saturating wall on BiPAP 15/5/50%. Still has cough that is constant and some mucus production. Sister and brothers are at the bedside. They are discussing goals of care at this time. No current changes in goals of care. <Wilbert Aguila Wei - 10/08/18 10:11> Results - Labs Result diagrams: 10/08/18 06:36 10/08/18 06:36 <Cindy Mark - 10/09/18 12:05> Abnormal lab results 10/07/18 10/07/18 10/07/18 Range/Units 08:54 09:07 10:49 WBC 18.4 H (4.0-11.0) th/mm3 RBC 3.98 L (4.50-5.90) mil/mm3 Hgb 11.5 L (13.0-17.0) gm/dL Hct 36.1 L (39.0-51.0) % Plt Count 552 H (150-450) th/mm3 Neut % (Auto) 93.9 H (16.0-70.0) % Lymph % (Auto) 1.5 L (9.0-44.0) % Neut # (Auto) 17.3 H (1.8-7.7) th/mm3 Lymph # (Auto) 0.3 L (1.0-4.8) th/mm3 Seg Neuts % (Manual) 81 H (16-70) % Band Neuts % (Manual) 7 H (0-6) % Lymphocytes % (Manual) 3 L (9-44) % Metamyelocytes % (Man) 4 H (0-1) % Myelocytes % (Man) 1 H (0-0) % Abs Neuts (Manual) 17.1 H (1.8-7.7) th/mm3 Platelet Estimate High H (Normal) ABG pH 7.27 L* (7.380-7.420) ABG pCO2 85 H* (38-42) mmHg ABG pO2 164 H (61-120) mmHg ABG HCO3 38 H (22-26) mmol/L ABG Base Excess 11.1 H (-2-2) mmol/L Hemoglobin 11.1 L (12.0-16.0) G/DL Sodium (136-145) meq/L Chloride (98-107) meq/L Carbon Dioxide (21.0-32.0) meq/L Creatinine (0.60-1.30) mg/dL POC Glucose 156 H (68-110) mg/dl Random Glucose (74-106) mg/dL Albumin (3.4-5.0) g/dL 10/07/18 Range/Units 10:49 WBC (4.0-11.0) th/mm3 RBC (4.50-5.90) mil/mm3 Hgb (13.0-17.0) gm/dL Hct (39.0-51.0) % Plt Count (150-450) th/mm3 Neut % (Auto) (16.0-70.0) % Lymph % (Auto) (9.0-44.0) % Neut # (Auto) (1.8-7.7) th/mm3 Lymph # (Auto) (1.0-4.8) th/mm3 Seg Neuts % (Manual) (16-70) % Band Neuts % (Manual) (0-6) % Lymphocytes % (Manual) (9-44) % Metamyelocytes % (Man) (0-1) % Myelocytes % (Man) (0-0) % Abs Neuts (Manual) (1.8-7.7) th/mm3 Platelet Estimate (Normal) ABG pH (7.380-7.420) ABG pCO2 (38-42) mmHg ABG pO2 (61-120) mmHg ABG HCO3 (22-26) mmol/L ABG Base Excess (-2-2) mmol/L Hemoglobin (12.0-16.0) G/DL Sodium 133 L (136-145) meq/L Chloride 90 L (98-107) meq/L Carbon Dioxide 37.6 H (21.0-32.0) meq/L Creatinine 0.59 L (0.60-1.30) mg/dL POC Glucose (68-110) mg/dl Random Glucose 146 H (74-106) mg/dL Albumin 2.6 L (3.4-5.0) g/dL Short CBC 10/07/18 Range/Units 10:49 WBC 18.4 H (4.0-11.0) th/mm3 Hgb 11.5 L (13.0-17.0) gm/dL Hct 36.1 L (39.0-51.0) % Plt Count 552 H (150-450) th/mm3 BMP 10/07/18 10:49 Sodium 133 L Potassium 3.8 Chloride 90 L Carbon Dioxide 37.6 H BUN 11 Creatinine 0.59 L Calcium 8.9 Liver Function 10/07/18 Range/Units 10:49 Total Bilirubin 0.2 (0.2-1.0) mg/dL AST 17 (15-37) U/L ALT 36 (12-78) U/L Alkaline Phosphatase 80 (45-117) U/L Albumin 2.6 L (3.4-5.0) g/dL <Aguila Gardner - 10/08/18 06:51> - Imaging Impressions Chest X-Ray 10/07/18 09:19 CONCLUSION: 1. Resolved right pleural effusion. 2. Moderate-sized laterally loculated left pleural effusion slightly smaller. 3. Bibasilar atelectasis again noted. 4. Severe centrilobular bullous emphysema. <Aguila Gardner - 10/08/18 06:51> Physical Exam Vital signs: Vital Signs 10/08/18 12:57 10/08/18 13:00 10/08/18 14:00 Temperature Pulse Rate 99 H 93 H 109 H Respiratory Rate 26 H 33 H 32 H Blood Pressure 187/91 H 158/91 H 153/78 H Pulse Oximetry 95 97 85 L 10/08/18 14:22 10/08/18 15:00 10/08/18 16:00 Temperature 98.8 F Pulse Rate 103 H 92 H 92 H Respiratory Rate 24 36 H 35 H Blood Pressure 170/70 H 144/84 H Pulse Oximetry 95 96 96 10/08/18 17:00 10/08/18 18:00 Temperature Pulse Rate 100 H 104 H Respiratory Rate Blood Pressure Pulse Oximetry 93 L Intake & Output 10/08/18 10/09/18 10/09/18 18:59 06:59 18:59 Intake Total 1918 / 191 Output Total 1000 / 1000 Balance 919 / 919 Intake: IV 945 / 945 Azithromycin Inj 500 MG In NS 248 / 248 Inj 250 ML @ 250 mls/hr IV.SIG Q24H [facility] Rx#:[id number] Zosyn 4.5 GM Premix 4.5 gm In 197 / 197 100 ml @ 200 mls/hr IV.SIG Q6H [facility] Rx#:[id number] Vancomycin Inj 1,500 MG In NS 500 / 500 Inj 500 ML @ 250 mls/hr IV.SIG Q12H [facility] Rx#:[id number] Oral 974 / 974 Output: Urine 1000 / 1000 Other: # Voids 4 Date of Last Bowel Movement 10/05/18 # Bowel Movements 0 <Cindy Mark M - 10/09/18 12:05> Vital Signs 10/07/18 08:45 10/07/18 08:46 10/07/18 09:05 Temperature Pulse Rate 109 H Respiratory Rate 32 H Blood Pressure Pulse Oximetry 95 99 10/07/18 11:32 10/07/18 12:00 10/07/18 14:17 Temperature Pulse Rate 109 H 105 H Respiratory Rate 20 30 H Blood Pressure 166/81 H Pulse Oximetry 86 L 93 L 10/07/18 14:31 10/07/18 15:36 10/07/18 16:00 Temperature Pulse Rate 100 H 99 H Respiratory Rate 25 H Blood Pressure 152/77 H Pulse Oximetry 95 39 L 10/07/18 16:33 10/07/18 19:00 10/07/18 19:51 Temperature Pulse Rate 81 87 Respiratory Rate 18 Blood Pressure Pulse Oximetry 95 10/07/18 19:52 10/07/18 20:00 10/07/18 21:00 Temperature 97.7 F Pulse Rate 87 96 H Respiratory Rate 16 Blood Pressure 147/75 H Pulse Oximetry 98 97 10/07/18 22:00 10/07/18 23:00 10/07/18 23:29 Temperature Pulse Rate 97 H 91 H 93 H Respiratory Rate 15 Blood Pressure Pulse Oximetry 10/08/18 00:00 10/08/18 01:00 10/08/18 01:17 Temperature 97.9 F Pulse Rate 83 90 Respiratory Rate 22 Blood Pressure 133/77 Pulse Oximetry 97 98 10/08/18 02:00 10/08/18 03:00 10/08/18 04:00 Temperature 98.2 F Pulse Rate 74 83 73 Respiratory Rate 14 9 L Blood Pressure 151/84 H Pulse Oximetry 98 10/08/18 04:08 10/08/18 05:00 10/08/18 06:00 Temperature Pulse Rate 83 72 Respiratory Rate Blood Pressure Pulse Oximetry 98 Intake & Output 10/07/18 10/07/18 10/08/18 06:59 18:59 06:59 Intake Total 1160 / 1160 1015 / 1015 715 / 715 Output Total 1500 / 1500 1050 / 1050 800 / 800 Balance -340 / -340 -35 / -35 -85 / -85 Weight 81.4 kg 89 kg Intake: IV 200 / 200 715 / 715 715 / 715 Azithromycin Inj 500 MG In NS 0 / 0 Inj 250 ML @ 250 mls/hr IV.SIG Q24H [facility] Rx#:[id number] Zosyn 4.5 GM Premix 4.5 gm In 200 / 200 200 / 200 200 / 200 100 ml @ 200 mls/hr IV.SIG Q6H [facility] Rx#:[id number] Vancomycin Inj 1,500 MG In NS 515 / 515 515 / 515 Inj 500 ML @ 250 mls/hr IV.SIG Q12H [facility] Rx#:[id number] Oral 960 / 960 300 / 300 0 / 0 Output: Urine 1500 / 1500 1050 / 1050 800 / 800 Other: # Voids 3 # Incontinent Voids 1 Date of Last Bowel Movement 10/05/18 10/05/18 10/05/18 <Aguila Gardner - 10/08/18 06:51> Narrative: General: BiPAP mask on. Some increased work of breathing despite support from BiPAP Eyes: EOMI, anicteric scleral, no conjunctival injection ENT: Atraumatic, MMM Neck: Trachea midline, no masses or lymphadenopathy Respiratory: Tachypneic, some respiratory distress and retractions, diffuse wheezes, poor air entry bilaterally (mild interval improvement) Cardiovascular: Regular rate and rhythm, 1+ pedal pulses Abdomen: Bowel sounds present. Soft, non-tender <Aguila Gardner - 10/08/18 10:11> Assessment and Plan - Assessment (1) COPD (chronic obstructive pulmonary disease) Code(s): J44.9 - Chronic obstructive pulmonary disease, unspecified Status: Acute (2) Schizophrenia Code(s): F20.9 - Schizophrenia, unspecified Status: Acute (3) Pneumonia Code(s): J18.9 - Pneumonia, unspecified organism Status: Acute (4) Pleural effusion on left Code(s): J90 - Pleural effusion, not elsewhere classified Status: Acute (5) HTN (hypertension) Code(s): I10 - Essential (primary) hypertension Status: Acute (6) Lung nodule Code(s): R91.1 - Solitary pulmonary nodule Status: Acute (7) BPH (benign prostatic hyperplasia) Code(s): N40.0 - Benign prostatic hyperplasia without lower urinary tract symptoms Status: Acute <JasCindy Lori - 10/09/18 12:05> (1) COPD (chronic obstructive pulmonary disease) Code(s): J44.9 - Chronic obstructive pulmonary disease, unspecified Status: Acute Plan: (2) Schizophrenia Code(s): F20.9 - Schizophrenia, unspecified Status: Acute Plan: (3) Pneumonia Code(s): J18.9 - Pneumonia, unspecified organism Status: Acute Plan: (4) Pleural effusion on left Code(s): J90 - Pleural effusion, not elsewhere classified Status: Acute Plan: (5) HTN (hypertension) Code(s): I10 - Essential (primary) hypertension Status: Acute Plan: (6) Lung nodule Code(s): R91.1 - Solitary pulmonary nodule Status: Acute Plan: (7) BPH (benign prostatic hyperplasia) Code(s): N40.0 - Benign prostatic hyperplasia without lower urinary tract symptoms Status: Acute Plan: <Aguila Gardner David - 10/08/18 12:51> - Assessment and Plan This a 63 yo M with a history of severe COPD and schizophrenia who presented to the ED with c/o one month history of increased oxygen demand and cough. Pulmonary: He has severe bullous lung disease and COPD exacerbation including a loculated left pleural effusion which is likely chronically consolidated lung. In addition he has a right lower lobe lung nodule of 0.9 cm in size. -Extensive COPD with huge blebs and very low lung parenchyma and chronically consolidated lung Pulmonology and critical care are following -Duonebs q4 hrs. scheduled and albuterol 2.5 mg nebulized Q2 hrs scheduled -Solu-Medrol 60 mg IV every 6hr -Protonix 40 mg PO daily for GI protection and to decrease chance of aspiration pneumonia. -Mucinex 600 mg tab PO BID PRN congestion -Continue home medication budesonide and Spiriva -Evaluated by CT surgery for possible lung reduction, Dr. Smith thinks he could benefit from this but is a very high risk surgical candidate. This option is still on the table. Family wants him transferred to the [place] in [facility] for any possible intervention. -Yesterday he had significant respiratory decompensation that required ICU transfer. He improved on HiFlo oxygen at 10L and a bolus of 250mg of acetazolamide. Infectious disease: Pneumonia versus worsening of COPD exacerbation. Due to respiratory deterioration stat blood and sputum cultures repeated Continue IV Zosyn Azithromycin and vancomycin added yesterday Consult to infectious disease placed Follow blood and sputum cultures Neuro/psych: History of schizophrenia and reportedly had a fluctuating level of cognition and responses to questions. He has limited insight into his medical condition and does not have capacity for medical decisions. Caregivers note that he has not been aggressive in the past. -No QT prolongation noted on EKG -Continue home haloperidol -Continue home benztropine -Continue home Ativan 1 mg twice daily Hypertension: -Continue home medication diltiazem -Continue home medication metoprolol -Vasotec as needed for blood pressures higher than 180/110 Benign prostatic hyperplasia: -Continue finasteride -Continue alfuzosin Fluids: [ ] Electrolytes: Monitor and replete as needed Nutrition: NPO due to aspiration risk GI prophylaxis: not indicated VTE prophylaxis: Subcutaneous heparin Disposition: -Palliative care consult to the poor current and half-way prognosis of his condition -Nicol Fleming is health care surrogate, patient signed the paperwork yesterday -Potential transfer to [place] for surgical intervention, family is discussing if they still think this is a good option <Aguila Gardner - 10/08/18 10:11> - Attending Attestation The exam, history, and the medical decision-making described in the above note were completed with the assistance of the resident physician. I reviewed and agree with the findings presented. I attest that I had a [id number] encounter with the patient on the same day, and personally performed and documented my assessment and findings in the medical record. this gentleman "just wanted to go home" and elected for hospice at home. He was to go home with bipap as needed, oxygen and his family wanted him to have levaquin which I explained had the equivalency of an iv drug. I spoke to 3 different family members besides the pt and they were still hoping he would get better and be able to go to the [place] and have lung reduction surgery. I explained that that would be their choice. I answered all their questions and explained everything I could. <Cindy Mark - 10/09/18 12:05> <Aguila Gardner - Last Filed: 10/08/18 12:51> (1) COPD (chronic obstructive pulmonary disease) Qualifiers: COPD type: emphysema Emphysema type: panlobular Qualified Code(s): J43.1 - Panlobular emphysema <Cindy Mark - Last Filed: 10/09/18 12:05> (1) COPD (chronic obstructive pulmonary disease) Qualifiers: COPD type: emphysema Emphysema type: panlobular Qualified Code(s): J43.1 - Panlobular emphysema <Aguila Gardner - Last Filed: 10/08/18 12:51> (1) COPD (chronic obstructive pulmonary disease) Qualifiers: COPD type: emphysema Emphysema type: panlobular Qualified Code(s): J43.1 - Panlobular emphysema <Cindy Mark - Last Filed: 10/09/18 12:05> (1) COPD (chronic obstructive pulmonary disease) Qualifiers: COPD type: emphysema Emphysema type: panlobular Qualified Code(s): J43.1 - Panlobular emphysema
[2018-10-08 07:10] LABS: Baso % (Auto) 0.1 % (0.0-2.0); Eos % (Auto) 0.1 % (0.0-4.0); Hematocrit 30.4 % (39.0-51.0); Hemoglobin 10.3 gm/dL (13.0-17.0); Lymph # (Auto) 0.3 th/mm3 (1.0-4.8); Lymph % (Auto) 2.6 % (9.0-44.0); Mean Corpuscular HGB Conc 33.9 % (32.0-36.0); Mean Corpuscular Volume 88.5 fL (80.0-100.0); Mean Platelet Volume 7.1 fL (7.0-11.0); Mono # (Auto) 0.5 th/mm3 (0.0-0.9); Mono % (Auto) 4.2 % (0.0-8.0); Neut # (Auto) 11.1 th/mm3 (1.8-7.7); Platelet Count 423 th/mm3 (150-450); Red Blood Count 3.44 mil/mm3 (4.50-5.90); Red Cell Distribution Width 14.4 % (11.6-17.2); White Blood Count 11.9 th/mm3 (4.0-11.0)
[2018-10-08 07:56] LABS: Anion Gap 4 meq/L (5-15); Blood Urea Nitrogen 13 mg/dL (7-18); Calcium 8.1 mg/dL (8.5-10.1); Carbon Dioxide 38.4 meq/L (21.0-32.0); Chloride 96 meq/L (98-107); Glomerular Filtration Rate Greater Than 89 mL/min (>89); Glucose,Random 133 mg/dL (74-106); Potassium 3.2 meq/L (3.5-5.1); Sodium 138 meq/L (136-145)
[2018-10-08 08:04] LABS: Platelet Estimate Normal (Normal); Platelet Morphology Normal (Normal)
[2018-10-08] MEDS: LORazepam 1 MG Tablet PO SCH (08:14)
[2018-10-08] MEDS: dilTIAZem CD 240 MG Capsule PO SCH (08:14)
[2018-10-08] MEDS: Finasteride 5 MG Tablet PO SCH (08:14)
[2018-10-08] MEDS: Benztropine 2 MG Tablet PO SCH ×2 (08:14→19:36)
[2018-10-08] MEDS: Budesonide-Formoterol 160/4.5 MCG 6 GM Inhaler INH SCH (08:19)
[2018-10-08] MEDS: Tiotropium Bromide 18 MCG/ACT Inhaler INH SCH ×2 (08:19→12:16)
--- NOTE | 2018-10-08 11:32 | P.PNPAL ---
Reason for Visit Reason for visit: a. To assist with evaluation and management of symptoms including: dyspnea, anxiety. b. To assist medical decision maker(s) with: better understanding of current medical conditions; weighing benefits/burdens of medical treatment options; making medical treatment decisions. Subjective Subjective/Interval History: Text message from brotherSurjit around 7am to ask if I could met with family this morning at 8:30am. I agreed to meet them at patient room. Patient seen and examined in ICU. 2 brothers (González and Surjit) and 1 sister ( Nicol) at bedside. Spoke with Dr. Atkins and Dr. Quinn. Patient remains on BiPAP. WBC 18.4, hemoglobin 11.5, hematocrit 36.1, platelets 552. Creatinine 0.59. Chest x-ray revealed resolved right pleural effusion, moderate sized laterally loculated left pleural effusion slightly smaller, bibasilar atelectasis, severe centrilobular bullous emphysema. Family/Friend Interactions: 8:45 a.m.: Dr. Atkins and I met with patient's siblings (Surjit Claudio and Nicol) in consult room. Patient did not wish to participate. Reviewed reason for palliative care consultation to assist with communication, clarification of treatment goals and symptom management. Medical update provided. Dr. Atkins reviewed chest x-ray and chest CT images with family. Reviewed medical decisions including CODE STATUS, intubation, goals including continued aggressive care versus transition to comfort focused care. Reviewed overall poor prognosis given severe underlying COPD emphysema. Patient was oxygen dependent on 8-10 L via nasal cannula at home prior to admission. He has had significant trajectory of decline since August of this year. Family requests additional time to speak as a family and then with patient to further clarify goals of medical treatment. 10:45 AM: I was called by patient's brother Surjit to come back to the room as the family has spoken with the patient and have made some decisions. Family reports that José Miguel does not want to be intubated, he does not want cardiac resuscitation, he does not want any surgical intervention. They report also that he wants to go home to be with his dog. Reviewed hospice services and family hopes to bring the patient home with hospice for comfort focused care. Patient elected NO CODE. Hospice consulted. Plan for discharge home with hospice when arrangements can be made. Advance Directives Advance Directives Date on File: 10/07/18 Health Care Surrogate Name and Number: Nicol Fleming, sister/[facility]: [phone] Significant change in goals:: NO CODE per patient wishes after speaking with family. Patient wants to go home to be with his dog. He wants comfort measures, no surgery, NO CODE and no surgical intervention. Objective Vital Signs: Vital Signs 10/07/18 11:32 10/07/18 12:00 10/07/18 14:17 Temperature Pulse Rate 109 H 105 H Respiratory Rate 20 30 H Blood Pressure 166/81 H Pulse Oximetry 86 L 93 L 10/07/18 14:31 10/07/18 15:36 10/07/18 16:00 Temperature Pulse Rate 100 H 99 H Respiratory Rate 25 H Blood Pressure 152/77 H Pulse Oximetry 95 39 L 10/07/18 16:33 10/07/18 19:00 10/07/18 19:51 Temperature Pulse Rate 81 87 Respiratory Rate 18 Blood Pressure Pulse Oximetry 95 10/07/18 19:52 10/07/18 20:00 10/07/18 21:00 Temperature 97.7 F Pulse Rate 87 96 H Respiratory Rate 16 Blood Pressure 147/75 H Pulse Oximetry 98 97 10/07/18 22:00 10/07/18 23:00 10/07/18 23:29 Temperature Pulse Rate 97 H 91 H 93 H Respiratory Rate 15 Blood Pressure Pulse Oximetry 10/08/18 00:00 10/08/18 01:00 10/08/18 01:17 Temperature 97.9 F Pulse Rate 83 90 Respiratory Rate 22 Blood Pressure 133/77 Pulse Oximetry 97 98 10/08/18 02:00 10/08/18 03:00 10/08/18 04:00 Temperature 98.2 F Pulse Rate 74 83 73 Respiratory Rate 14 9 L Blood Pressure 151/84 H Pulse Oximetry 98 10/08/18 04:08 10/08/18 05:00 10/08/18 06:00 Temperature Pulse Rate 83 72 Respiratory Rate Blood Pressure Pulse Oximetry 98 10/08/18 07:00 10/08/18 07:43 Temperature Pulse Rate 93 H Respiratory Rate 19 Blood Pressure Pulse Oximetry 100 Intake & Output 10/07/18 10/08/18 10/08/18 18:59 06:59 18:59 Intake Total 1015 / 1015 965 / 965 Output Total 1050 / 1050 800 / 800 Balance -35 / -35 165 / 165 Weight 89 kg Intake: IV 715 / 715 965 / 965 Azithromycin Inj 500 MG In NS 0 / 0 250 / 250 Inj 250 ML @ 250 mls/hr IV.SIG Q24H ERINN Rx#:[id number] Zosyn 4.5 GM Premix 4.5 gm In 200 / 200 200 / 200 100 ml @ 200 mls/hr IV.SIG Q6H ERINN Rx#:[id number] Vancomycin Inj 1,500 MG In NS 515 / 515 515 / 515 Inj 500 ML @ 250 mls/hr IV.SIG Q12H ERINN Rx#:[id number] Oral 300 / 300 0 / 0 Output: Urine 1050 / 1050 800 / 800 Other: # Voids 3 # Incontinent Voids 1 Date of Last Bowel Movement 10/05/18 10/05/18 Physical Exam: CONSTITUTIONAL/GENERAL: This is an adequately nourished patient, tachypneic. TUBES/LINES/DRAINS: BiPAP, PIV. SKIN: No jaundice, rashes, or lesions. Ecchymoses on upper extremities. No wounds seen anteriorly. Skin temperature appropriate. Not diaphoretic. EYES: Pupils equal and round and reactive. ENT: Hearing grossly normal. Nose without bleeding or purulent drainage. Throat without visible erythema, exudates, masses, or lesions. CARDIOVASCULAR: RRR. RESPIRATORY/CHEST: on BiPAP. Diminished breath sounds. GASTROINTESTINAL: Abdomen soft, non-tender, nondistended. No guarding. Bowel sounds present. GENITOURINARY: Without palpable bladder distension. MUSCULOSKELETAL: Extremities without clubbing, cyanosis, or edema. No mottling or clubbing. NEUROLOGICAL: Awake and alert oriented to person and place. Answers questions appropriately. Follows commands. Moves all extremities. PSYCHIATRIC: Calm, smiling and joking today. Diagnostic Tests Laboratory: Laboratory Results - last 72 hr 10/06/18 10/06/18 10/07/18 06:44 06:44 08:54 WBC 26.0 H RBC 3.83 L Hgb 11.4 L Hct 34.5 L MCV 90.2 MCH 29.9 MCHC 33.2 RDW 14.2 Plt Count 583 H MPV 7.3 Prelim Diff (Auto) Slide review pending Neut % (Auto) 94.4 H Lymph % (Auto) 1.5 L [place] % (Auto) 3.7 Eos % (Auto) 0.0 Baso % (Auto) 0.4 Neut # (Auto) 24.6 H Lymph # (Auto) 0.4 L [place] # (Auto) 1.0 H Eos # (Auto) 0.0 Baso # (Auto) 0.1 WBC Differential Manual diff final Diff Scan Seg Neuts % (Manual) 92 H Band Neuts % (Manual) 3 Lymphocytes % (Manual) 1 L Monocytes % (Manual) 4 Metamyelocytes % (Man) Myelocytes % (Man) Abs Neuts (Manual) 24.7 H Differential Comment . Toxic Granulation 1+ H Platelet Estimate High H Platelet Morphology Normal Puncture Site Patient Temperature O2 Saturation ABG pH ABG pCO2 ABG pO2 ABG HCO3 ABG O2 Content ABG Base Excess ABG Methemoglobin Enrique Test Hemoglobin Carboxyhemoglobin O2 Delivery Device Liter Flow Critical Value Sodium 133 L Potassium 3.2 L D Chloride 93 L Carbon Dioxide 31.7 Anion Gap 8 BUN 8 Creatinine 0.60 Estimated GFR Greater than 89 POC Glucose 156 H Random Glucose 104 Calcium 8.6 Total Bilirubin AST ALT Alkaline Phosphatase Total Protein Albumin Nasal Screen MRSA (PCR) 10/07/18 10/07/18 10/07/18 09:07 09:30 10:49 WBC 18.4 H RBC 3.98 L Hgb 11.5 L Hct 36.1 L MCV 90.7 MCH 29.0 MCHC 32.0 RDW 14.4 Plt Count 552 H MPV 7.2 Prelim Diff (Auto) Slide review pending Neut % (Auto) 93.9 H Lymph % (Auto) 1.5 L [place] % (Auto) 4.5 Eos % (Auto) 0.0 Baso % (Auto) 0.1 Neut # (Auto) 17.3 H Lymph # (Auto) 0.3 L [place] # (Auto) 0.8 Eos # (Auto) 0.0 Baso # (Auto) 0.0 WBC Differential Manual diff final Diff Scan Seg Neuts % (Manual) 81 H Band Neuts % (Manual) 7 H Lymphocytes % (Manual) 3 L Monocytes % (Manual) 4 Metamyelocytes % (Man) 4 H Myelocytes % (Man) 1 H Abs Neuts (Manual) 17.1 H Differential Comment . Toxic Granulation Platelet Estimate High H Platelet Morphology Normal Puncture Site Right radial Patient Temperature 98.6 O2 Saturation 98 ABG pH 7.27 L* ABG pCO2 85 H* ABG pO2 164 H ABG HCO3 38 H ABG O2 Content 15.5 ABG Base Excess 11.1 H ABG Methemoglobin 0.7 Enrique Test Present Hemoglobin 11.1 L Carboxyhemoglobin 0.8 O2 Delivery Device Prb Liter Flow 15.00 Critical Value Yes Sodium Potassium Chloride Carbon Dioxide Anion Gap BUN Creatinine Estimated GFR POC Glucose Random Glucose Calcium Total Bilirubin AST ALT Alkaline Phosphatase Total Protein Albumin Nasal Screen MRSA (PCR) Not detected 10/07/18 10/08/18 10/08/18 10:49 06:36 06:36 WBC 11.9 H RBC 3.44 L Hgb 10.3 L Hct 30.4 L MCV 88.5 MCH 30.0 MCHC 33.9 RDW 14.4 Plt Count 423 MPV 7.1 Prelim Diff (Auto) Slide review pending Neut % (Auto) 93.0 H Lymph % (Auto) 2.6 L [place] % (Auto) 4.2 Eos % (Auto) 0.1 Baso % (Auto) 0.1 Neut # (Auto) 11.1 H Lymph # (Auto) 0.3 L [place] # (Auto) 0.5 Eos # (Auto) 0.0 Baso # (Auto) 0.0 WBC Differential . Diff Scan Auto diff confirmed Seg Neuts % (Manual) Band Neuts % (Manual) Lymphocytes % (Manual) Monocytes % (Manual) Metamyelocytes % (Man) Myelocytes % (Man) Abs Neuts (Manual) Differential Comment . Toxic Granulation Platelet Estimate Normal Platelet Morphology Normal Puncture Site Patient Temperature O2 Saturation ABG pH ABG pCO2 ABG pO2 ABG HCO3 ABG O2 Content ABG Base Excess ABG Methemoglobin Enrique Test Hemoglobin Carboxyhemoglobin O2 Delivery Device Liter Flow Critical Value Sodium 133 L 138 Potassium 3.8 3.2 L Chloride 90 L 96 L Carbon Dioxide 37.6 H 38.4 H Anion Gap 5 4 L BUN 11 13 Creatinine 0.59 L 0.34 L Estimated GFR Greater than 89 Greater than 89 POC Glucose Random Glucose 146 H 133 H Calcium 8.9 8.1 L D Total Bilirubin 0.2 AST 17 ALT 36 Alkaline Phosphatase 80 Total Protein 7.8 Albumin 2.6 L Nasal Screen MRSA (PCR) Result Diagrams: 10/08/18 06:36 10/08/18 06:36 Microbiology: Microbiology 10/07/18 13:15 Gram Stain - Final Sputum - Expectorated Sputum 10/05/18 21:00 Gram Stain - Final Sputum - Expectorated Sputum Sputum Culture - Final Heavy growth normal respiratory lacho 10/04/18 12:55 Aerobic Blood Culture - Preliminary Blood - Peripheral No growth in 3 days Anaerobic Blood Culture - Preliminary No growth in 3 days 10/04/18 12:50 Aerobic Blood Culture - Preliminary Blood - Peripheral No growth in 3 days Anaerobic Blood Culture - Preliminary No growth in 3 days 10/04/18 12:50 Legionella Antigen - Final Urine - Clean Catch Urine Presumptive negative for Legionella pneumophila serogroup 1 antigen in urine, suggesting no recent or recurrent infection. Infection due to Legionella cannot be ruled out since other serogroups and species may cause disease, antigen may not be present in urine in early infection, and the level of antigen present in the urine may be below the detection limit of the test. Imaging: Chest CT 10/04/18 00:00 CONCLUSION: 1. Extensive COPD with huge blebs and very low lung parenchymal remaining. 2. Loculated left pleural effusion with adjacent parenchymal process may be chronically consolidated lung, however focal mass particularly left lower lobe is difficult to exclude. 3. Nonspecific right lower lung nodule. 4. Right adrenal mass most likely an adenoma, however it is nonspecific. Chest Ultrasound 10/05/18 00:00 CONCLUSION: 1. Small left pleural effusion. Inadequate for thoracentesis. Chest X-Ray 10/07/18 09:19 CONCLUSION: 1. Resolved right pleural effusion. 2. Moderate-sized laterally loculated left pleural effusion slightly smaller. 3. Bibasilar atelectasis again noted. 4. Severe centrilobular bullous emphysema. Assessment and Plan - Disease Oriented Problem List (1) Pneumonia (2) Pleural effusion on left (3) COPD (chronic obstructive pulmonary disease) (4) Schizophrenia (5) BPH (benign prostatic hyperplasia) (6) HTN (hypertension) (7) Lung nodule - Symptom Scale (1) Dyspnea 0-10 Scale: Unable to quantify Pertinent Non-Medical Issues: Psychosocial: Single, No children. Lives with his sisterNicol. Has 4 brothers and 3 sisters. Spiritual: Very synagogue. Welcomes territory account executive support. Legal: Patient is alert and oriented with limited insight to current health condition. Patient completed designation of health care surrogate naming his sister, Nicol Fleming as health care surrogate. Ethical issues impacting care: No known concerns at this time. Important Contacts: * Nicol Fleming, sister/[facility]: [phone] * Surjit Fleming, brother: [phone] Prognosis: Mr. Fleming is a 63 year old male with severe COPD/ emphysema admitted with pneumonia. Overall prognosis is poor. Code Status: No Code DNR Plan: * Patient is alert and oriented with limited insight to current health condition. Patient completed designation of health care surrogate naming his sister, Nicol Fleming as health care surrogate. * NO CODE. * Goals: Dr. Atkins and I met with siblings (Surjit Claudio and Nicol). After the family and patient had a chance to speak the patient did NOT want to be intubated, does not want cardiac resuscitation, does not want surgery. Family wants to honor patient wishes to return home to be with his dog. Reviewed hospice services. * Hospice consulted. * SYMPTOMS: Dyspnea: due to severe oxygen dependent COPD, emphysema, pneumonia. On oxygen via mask, tachypneic, will likely require intubation and bronchoscopy. * Palliative care will continue to follow to assist with communication, symptom management and further clarification of goals of medical treatment through out hospital course. Attestation Attestation: To help prompt me to consider important information that might be impacting today's encounter and assessment, information from prior notes written by myself or my colleagues may have been "brought forward" into today's note. My signature on this note, however, is an attestation that I personally performed the exam, history, and/or decision-making noted today, and, unless otherwise indicated, the interactions with patient, family, and staff as well as the review of records all occurred today. I also attest that the listed assessment and stated plan reflect my best clinical judgment today based on the combination of historical information, prior notes, and today's exam/ interactions. When time spent is documented, it refers only to time spent today by the signer, or if indicated, combined time spent today by collaborating physician/nurse practitioner.
--- NOTE | 2018-10-08 14:47 | P.PNCC ---
Subjective Subjective Remarks/Hospital Course: 10/08: Patient continued overnight on BiPAP O2 saturation 9395%. Today family meeting convened with palliative care. Decision made for hospice, home hospice. Need to initiate transport with BiPAP and then removal of BiPAP upon arrival home. The patient remains hemodynamically stable, at this time. Objective Vital Signs / I&O: Vital Signs 10/07/18 14:31 10/07/18 15:36 10/07/18 16:00 Temperature Pulse Rate 100 H 99 H Respiratory Rate 25 H Blood Pressure 152/77 H Pulse Oximetry 95 39 L 10/07/18 16:33 10/07/18 19:00 10/07/18 19:51 Temperature Pulse Rate 81 87 Respiratory Rate 18 Blood Pressure Pulse Oximetry 95 10/07/18 19:52 10/07/18 20:00 10/07/18 21:00 Temperature 97.7 F Pulse Rate 87 96 H Respiratory Rate 16 Blood Pressure 147/75 H Pulse Oximetry 98 97 10/07/18 22:00 10/07/18 23:00 10/07/18 23:29 Temperature Pulse Rate 97 H 91 H 93 H Respiratory Rate 15 Blood Pressure Pulse Oximetry 10/08/18 00:00 10/08/18 01:00 10/08/18 01:17 Temperature 97.9 F Pulse Rate 83 90 Respiratory Rate 22 Blood Pressure 133/77 Pulse Oximetry 97 98 10/08/18 02:00 10/08/18 03:00 10/08/18 04:00 Temperature 98.2 F Pulse Rate 74 83 73 Respiratory Rate 14 9 L Blood Pressure 151/84 H Pulse Oximetry 98 10/08/18 04:08 10/08/18 05:00 10/08/18 06:00 Temperature Pulse Rate 83 72 Respiratory Rate Blood Pressure Pulse Oximetry 98 10/08/18 07:00 10/08/18 07:43 10/08/18 11:20 Temperature Pulse Rate 93 H 91 H Respiratory Rate 19 15 Blood Pressure Pulse Oximetry 100 99 10/08/18 14:22 Temperature Pulse Rate 103 H Respiratory Rate 24 Blood Pressure Pulse Oximetry 95 Intake & Output 10/07/18 10/08/18 10/08/18 18:59 06:59 18:59 Intake Total 1015 / 1015 965 / 965 100 / 100 Output Total 1050 / 1050 800 / 800 Balance -35 / -35 165 / 165 100 / 100 Weight 89 kg Intake: IV 715 / 715 965 / 965 100 / 100 Azithromycin Inj 500 MG In NS 0 / 0 250 / 250 Inj 250 ML @ 250 mls/hr IV.SIG Q24H ERINN Rx#:[id number] Zosyn 4.5 GM Premix 4.5 gm In 200 / 200 200 / 200 100 / 100 100 ml @ 200 mls/hr IV.SIG Q6H ERINN Rx#:[id number] Vancomycin Inj 1,500 MG In NS 515 / 515 515 / 515 Inj 500 ML @ 250 mls/hr IV.SIG Q12H ERINN Rx#:[id number] Oral 300 / 300 0 / 0 Output: Urine 1050 / 1050 800 / 800 Other: # Voids 3 # Incontinent Voids 1 Date of Last Bowel Movement 10/05/18 10/05/18 Result Diagrams: 10/08/18 06:36 10/08/18 06:36 Other Results: Laboratory Results WBC 11.9 th/mm3 (4.0-11.0) H 10/08/18 06:36 RBC 3.44 mil/mm3 (4.50-5.90) L 10/08/18 06:36 Hgb 10.3 gm/dL (13.0-17.0) L 10/08/18 06:36 Hct 30.4 % (39.0-51.0) L 10/08/18 06:36 MCV 88.5 fL (80.0-100.0) 10/08/18 06:36 MCH 30.0 pg (27.0-34.0) 10/08/18 06:36 MCHC 33.9 % (32.0-36.0) 10/08/18 06:36 RDW 14.4 % (11.6-17.2) 10/08/18 06:36 Plt Count 423 th/mm3 (150-450) 10/08/18 06:36 MPV 7.1 fL (7.0-11.0) 10/08/18 06:36 Prelim Diff (Auto) Slide review pending 10/08/18 06:36 Neut % (Auto) 93.0 % (16.0-70.0) H 10/08/18 06:36 Lymph % (Auto) 2.6 % (9.0-44.0) L 10/08/18 06:36 [place] % (Auto) 4.2 % (0.0-8.0) 10/08/18 06:36 Eos % (Auto) 0.1 % (0.0-4.0) 10/08/18 06:36 Baso % (Auto) 0.1 % (0.0-2.0) 10/08/18 06:36 Neut # (Auto) 11.1 th/mm3 (1.8-7.7) H 10/08/18 06:36 Lymph # (Auto) 0.3 th/mm3 (1.0-4.8) L 10/08/18 06:36 Waldo # (Auto) 0.5 th/mm3 (0.0-0.9) 10/08/18 06:36 Eos # (Auto) 0.0 th/mm3 (0.0-0.4) 10/08/18 06:36 Baso # (Auto) 0.0 th/mm3 (0.0-0.2) 10/08/18 06:36 WBC Differential . 10/08/18 06:36 Diff Scan Auto diff confirmed 10/08/18 06:36 Seg Neuts % (Manual) 81 % (16-70) H 10/07/18 10:49 Band Neuts % (Manual) 7 % (0-6) H 10/07/18 10:49 Lymphocytes % (Manual) 3 % (9-44) L 10/07/18 10:49 Monocytes % (Manual) 4 % (0-8) 10/07/18 10:49 Metamyelocytes % (Man) 4 % (0-1) H 10/07/18 10:49 Myelocytes % (Man) 1 % (0-0) H 10/07/18 10:49 Abs Neuts (Manual) 17.1 th/mm3 (1.8-7.7) H 10/07/18 10:49 Differential Comment . 10/08/18 06:36 Toxic Granulation 1+ (None) H 10/06/18 06:44 Platelet Estimate Normal (Normal) 10/08/18 06:36 Platelet Morphology Normal (Normal) 10/08/18 06:36 RBC Morphology Normal (Normal) 10/04/18 12:50 Puncture Site Right radial 10/07/18 09:07 Patient Temperature 98.6 10/07/18 09:07 O2 Saturation 98 % (90-100) 10/07/18 09:07 ABG pH 7.27 (7.380-7.420) L* 10/07/18 09:07 ABG pCO2 85 mmHg (38-42) H* 10/07/18 09:07 ABG pO2 164 mmHg (61-120) H 10/07/18 09:07 ABG HCO3 38 mmol/L (22-26) H 10/07/18 09:07 ABG O2 Content 15.5 Vol % (12.0-20.0) 10/07/18 09:07 ABG Base Excess 11.1 mmol/L (-2-2) H 10/07/18 09:07 ABG Methemoglobin 0.7 % (0-2) 10/07/18 09:07 Enrique Test Present 10/07/18 09:07 Hemoglobin 11.1 G/DL (12.0-16.0) L 10/07/18 09:07 Carboxyhemoglobin 0.8 % (0-4) 10/07/18 09:07 O2 Delivery Device Prb 10/07/18 09:07 Liter Flow 15.00 L/M 10/07/18 09:07 Inspired O2 100 % 10/04/18 18:38 Critical Value Yes 10/07/18 09:07 Sodium 138 meq/L (136-145) 10/08/18 06:36 Potassium 3.2 meq/L (3.5-5.1) L 10/08/18 06:36 Chloride 96 meq/L (98-107) L 10/08/18 06:36 Carbon Dioxide 38.4 meq/L (21.0-32.0) H 10/08/18 06:36 Anion Gap 4 meq/L (5-15) L 10/08/18 06:36 BUN 13 mg/dL (7-18) 10/08/18 06:36 Creatinine 0.34 mg/dL (0.60-1.30) L 10/08/18 06:36 Estimated GFR Greater than 89 mL/min (>89) 10/08/18 06:36 POC Glucose 156 mg/dl (68-110) H 10/07/18 08:54 Random Glucose 133 mg/dL (74-106) H 10/08/18 06:36 Lactic Acid 1.1 mmol/L (0.4-2.0) 10/04/18 15:15 Calcium 8.1 mg/dL (8.5-10.1) L D 10/08/18 06:36 Total Bilirubin 0.2 mg/dL (0.2-1.0) 10/07/18 10:49 AST 17 U/L (15-37) 10/07/18 10:49 ALT 36 U/L (12-78) 10/07/18 10:49 Alkaline Phosphatase 80 U/L (45-117) 10/07/18 10:49 Total Creatine Kinase 49 U/L (39-308) 10/04/18 12:50 Troponin I Less than 0.02 ng/mL (0.02-0.05) L 10/04/18 12:50 B-Natriuretic Peptide 44 pg/mL (0-100) 10/04/18 23:28 Total Protein 7.8 g/dL (6.4-8.2) 10/07/18 10:49 Albumin 2.6 g/dL (3.4-5.0) L 10/07/18 10:49 Procalcitonin 0.22 ng/mL (0.00-0.07) H 10/04/18 20:35 Urine Color Yellow (Yellw/Straw) 10/04/18 12:50 Urine Clarity Hazy (Clear) H 10/04/18 12:50 Urine pH 6.0 (5.0-8.5) 10/04/18 12:50 Ur Specific [place] 1.018 (1.002-1.035) 10/04/18 12:50 Urine Protein 30 mg/dL (Neg-Trace) H 10/04/18 12:50 Urine Glucose (UA) Negative mg/dL (Negative) 10/04/18 12:50 Urine Ketones Trace mg/dL (Negative) H 10/04/18 12:50 Urine Occult Blood Negative (Negative) 10/04/18 12:50 Urine Nitrate Negative (Negative) 10/04/18 12:50 Urine Bilirubin Negative (Negative) 10/04/18 12:50 Urine Urobilinogen Less than 2 mg/dL (Less than 2) 10/04/18 12:50 Ur Leukocyte Esterase Negative (Negative) 10/04/18 12:50 Urine WBC 3 /hpf (0-5) 10/04/18 12:50 Hyaline Casts 3 /lpf (0-3) 10/04/18 12:50 Granular Casts 5 /lpf (None) 10/04/18 12:50 Urine Mucus Few /lpf (Occasional) H 10/04/18 12:50 Micro UA Comment Culture not ind 10/04/18 12:50 Ur Microscopic Review Not Reportable 10/04/18 12:50 Urine Culture Comments Culture not ind 10/04/18 12:50 Nasal Screen MRSA (PCR) Not detected (Negative) 10/07/18 09:[address] 10/04/18 00:00 CONCLUSION: 1. Extensive COPD with huge blebs and very low lung parenchymal remaining. 2. Loculated left pleural effusion with adjacent parenchymal process may be chronically consolidated lung, however focal mass particularly left lower lobe is difficult to exclude. 3. Nonspecific right lower lung nodule. 4. Right adrenal mass most likely an adenoma, however it is nonspecific. Chest Ultrasound 10/05/18 00:00 CONCLUSION: 1. Small left pleural effusion. Inadequate for thoracentesis. Chest X-Ray 10/07/18 09:19 CONCLUSION: 1. Resolved right pleural effusion. 2. Moderate-sized laterally loculated left pleural effusion slightly smaller. 3. Bibasilar atelectasis again noted. 4. Severe centrilobular bullous emphysema. Objective Remarks: GENERAL: Chronically ill-appearing male, on BiPAP currently in no distress SKIN: Warm and dry. HEAD: Atraumatic. Normocephalic. EYES: Pupils equal and round. No scleral icterus. No injection or drainage. ENT: No nasal bleeding or discharge. Mucous membranes pink and moist. NECK: Trachea midline. No JVD. CARDIOVASCULAR: Normal rate, regular rhythm. RESPIRATORY: No accessory muscle use. Clear to auscultation. Breath sounds equal bilaterally. GASTROINTESTINAL: Abdomen soft, non-tender, nondistended. No guarding. MUSCULOSKELETAL: Extremities without clubbing, cyanosis, or edema. No obvious deformities. NEUROLOGICAL: Awake and alert. RASS 0. No gross focal/sensory deficits. Follows commands in all 4 extremities. Assessment and Plan - Problem List (1) Pneumonia Code(s): J18.9 - Pneumonia, unspecified organism Status: Acute (2) Pleural effusion on left Code(s): J90 - Pleural effusion, not elsewhere classified Status: Acute (3) COPD (chronic obstructive pulmonary disease) Code(s): J44.9 - Chronic obstructive pulmonary disease, unspecified Status: Acute (4) Schizophrenia Code(s): F20.9 - Schizophrenia, unspecified Status: Acute (5) BPH (benign prostatic hyperplasia) Code(s): N40.0 - Benign prostatic hyperplasia without lower urinary tract symptoms Status: Acute (6) HTN (hypertension) Code(s): I10 - Essential (primary) hypertension Status: Acute (7) Lung nodule Code(s): R91.1 - Solitary pulmonary nodule Status: Acute - Assessment and Plan Plan: Plan by systems: Neurologic: Schizophrenia Continue current home medications to include Cogentin, Ativan and Haldol Acetaminophen 650 mg every 6 hours as needed for pain and/or temperature greater than 101.0 Respiratory: Acute hypoxemic respiratory failure Severe bullous lung disease COPD exacerbation Left pleural effusion Pneumonia Continue BiPAP as needed as per recommendations of home theater experience expert Pulmonology -Dr. Mitchell discussed with patient and family prognosis secondary to extensive lung disease. Family plans for home hospice hospice Duo neb as scheduled Continue methylprednisolone 60 mg every 6 hours ID following empiric antibiotics see below Cardiovascular: Hypertension Maintain map greater than 65 Continue Cardizem 240 CD/daily Continue metoprolol 50mg BID PRN Vasotec for elevated BP Renal: No Bautista required at this time -- Strict I/Os FEN/GI: Maintain n.p.o. status for now patient is at risk for emergent intubation Bowel regimen Zofran for nausea Heme/ID: Leukocytosis Possible pneumonia ID following Patient previously on Zosyn, expand coverage to include atypical, we will add vancomycin and azithromycin Monitor CBC Endocrine: Glucose monitoring per ICU protal -- SSI Prophylaxis: GI Prophylaxis Protonix DVT Prophylaxis -- SCDs Heparin subcu 3 times daily Lines: IVs providing adequate access at this time. Central line if indicated Dispo: The patient has severe COPD with acute hypoxemic respiratory insufficiency/ failure. The patient is at risk for emergent intubation. Since performed with sister who is now healthcare surrogate, Elise. All questions answered. Tentative plans for tentative transfer to [facility] ICU at the [facility] for evaluation for possible lung reduction surgery, however Palliative consulted to define goals of care.After family conference, plan is for Hospice at home with possible discharge this evening. Level 3 followup Plans after discussion with Ms. Wiseman, electrical contractor and THIRD RIGGER at bedside for patient to transfer to home hospice.Thank you for the consult. Critical [facility] will sign off. Code Status: DNR Discussed Condition With: Ms. Wiseman, electrical contractor, THIRD RIGGER and Dr. Atkins (3) COPD (chronic obstructive pulmonary disease) Qualifiers: COPD type: emphysema Emphysema type: panlobular Qualified Code(s): J43.1 - Panlobular emphysema
[2018-10-08] MEDS: Azithromycin Inj 500 MG in Sodium Chlor 0.9% Inj 250 ML IV.SIG SCH (15:05)
[2018-10-08 16:28] VITALS: BP 144/84; RESP 35; TEMP 98.8
[2018-10-08 18:01] VITALS: O2SAT 93
[2018-10-08 19:20] VITALS: PULSE 104
--- NOTE | 2018-10-08 19:22 | P.PNPL ---
Subjective Interval history: 63 YOWM with Extensive boulous disease, pl eff On BIPAP awake follows commands Sister at BS Physical Exam Vital signs: Vital Signs 10/07/18 19:51 10/07/18 19:52 10/07/18 20:00 Temperature 97.7 F Pulse Rate 87 87 Respiratory Rate 18 26 H Blood Pressure 147/75 H Pulse Oximetry 98 97 10/07/18 21:00 10/07/18 22:00 10/07/18 23:00 Temperature Pulse Rate 96 H 97 H 91 H Respiratory Rate 41 H 31 H 36 H Blood Pressure 148/86 H 162/92 H 146/81 H Pulse Oximetry 100 99 96 10/07/18 23:29 10/08/18 00:00 10/08/18 01:00 Temperature 97.9 F Pulse Rate 93 H 83 90 Respiratory Rate 15 22 32 H Blood Pressure 133/77 157/87 H Pulse Oximetry 95 98 10/08/18 01:17 10/08/18 02:00 10/08/18 03:00 Temperature Pulse Rate 74 83 Respiratory Rate 9 L 24 Blood Pressure 120/63 132/83 Pulse Oximetry 98 98 99 10/08/18 04:00 10/08/18 04:08 10/08/18 05:00 Temperature 98.2 F Pulse Rate 73 83 Respiratory Rate 9 L 15 Blood Pressure 136/66 151/84 H Pulse Oximetry 98 98 100 10/08/18 06:00 10/08/18 07:00 10/08/18 07:03 Temperature Pulse Rate 73 104 H 101 H Respiratory Rate 10 L 36 H 27 H Blood Pressure 129/70 156/92 H Pulse Oximetry 98 95 10/08/18 07:43 10/08/18 08:00 10/08/18 09:00 Temperature 98.7 F Pulse Rate 90 83 Respiratory Rate 15 17 Blood Pressure 151/76 H 183/94 H Pulse Oximetry 100 98 100 10/08/18 09:57 10/08/18 10:00 10/08/18 10:12 Temperature Pulse Rate 91 H 93 H 98 H Respiratory Rate 30 H 32 H 36 H Blood Pressure 169/92 H 172/100 H 156/96 H Pulse Oximetry 98 98 97 10/08/18 11:00 10/08/18 11:17 10/08/18 11:20 Temperature Pulse Rate 92 H 93 H 91 H Respiratory Rate 31 H 27 H 15 Blood Pressure 161/100 H 168/97 H Pulse Oximetry 99 99 99 10/08/18 12:00 10/08/18 12:57 10/08/18 13:00 Temperature 98.6 F Pulse Rate 100 H 99 H 93 H Respiratory Rate 42 H 26 H 33 H Blood Pressure 164/103 H 187/91 H 158/91 H Pulse Oximetry 95 95 97 10/08/18 14:00 10/08/18 14:22 10/08/18 15:00 Temperature Pulse Rate 109 H 103 H 92 H Respiratory Rate 32 H 24 36 H Blood Pressure 153/78 H 170/70 H Pulse Oximetry 85 L 95 96 10/08/18 16:00 10/08/18 17:00 10/08/18 18:00 Temperature 98.8 F Pulse Rate 92 H 100 H 104 H Respiratory Rate 35 H Blood Pressure 144/84 H Pulse Oximetry 96 93 L Intake & Output 10/08/18 10/08/18 10/09/18 06:59 18:59 06:59 Intake Total 965 / 965 1919 / 1919 Output Total 800 / 800 1000 / 1000 Balance 165 / 165 919 / 919 Weight 89 kg Intake: IV 965 / 965 945 / 945 Azithromycin Inj 500 MG In NS 250 / 250 248 / 248 Inj 250 ML @ 250 mls/hr IV.SIG Q24H ERINN Rx#:[id number] Zosyn 4.5 GM Premix 4.5 gm In 200 / 200 197 / 197 100 ml @ 200 mls/hr IV.SIG Q6H ERINN Rx#:[id number] Vancomycin Inj 1,500 MG In NS 515 / 515 500 / 500 Inj 500 ML @ 250 mls/hr IV.SIG Q12H ERINN Rx#:[id number] Oral 0 / 0 974 / 974 Output: Urine 800 / 800 1000 / 1000 Other: # Voids 3 4 Date of Last Bowel Movement 10/05/18 10/05/18 # Bowel Movements 0 GENERAL: Elderly Wm Mild sob, on BIPAP SKIN: Warm and dry. HEAD: Normocephalic. EYES: No scleral icterus. No injection or drainage. NECK: Supple, trachea midline. No JVD or lymphadenopathy. CARDIOVASCULAR: Regular rate and rhythm without murmurs, gallops, or rubs. RESPIRATORY: Breath sounds equal bilaterally. No accessory muscle use. Decreased chest excursion GASTROINTESTINAL: Abdomen soft, non-tender, nondistended. MUSCULOSKELETAL: No cyanosis, or edema. BACK: Nontender without obvious deformity. No CVA tenderness. Assessment and Plan - Plan IMPRESSION: Extensive Boulous disease Severe COPD Loculted pl eff PLAN: Cont BIPAP Evaluated by Palliative care and Hospice plans for DC to Hospice care ctr
[2018-10-09] MEDS ORDERED: Pharmacy Ordered Lab Info OTHER ONE (00:45)
== END 2018-10-08 20:00 | disposition hospice, home (50) | DRG 186 ==
LOC: NEPC 11:40 → NEDA 15:27 → HCIS 20:47 → HIMC 10-07 09:05
PROVIDERS: ADMIT Family Medicine; ATTEND Family Medicine
CPT/HCPCS: 36600; 71010; 71020; 71045; 71046; 71260; 76604; 80048; 80053; 81001; 82550; 82805; 82948; 82962; 83520; 83605; 83880; 84145; 84484; 85025; 87040; 87070; 87205; 87275; 87276; 87449; 87641; 87804; 93005; 94003; 94640; 94657; 94664; 94665; 97162; 99285; A4646; J0456; J0515; J1120; J1644; J2543; J2704; J2920; J3370; J7030; J7040; J7050; Q9950; Q9965; Q9967